=== PATIENT | female | born 1955 | race Caucasian/White ===

== ENCOUNTER → 2016-08-09 | Outpatient (CLI) | payer BC ==
[~2016-08-09] MED LIST: ACET50TAOT PO; HYDR12CA PO; HYDR25TAB PO; NAPR375T2 PO; OXYC-517 PO; ULTR37.52 PO; ZANA4TAB PO
== END ==
LOC: M PAIN 11:00
PROVIDERS: ATTEND Nurse Practitioner Family
DX: Z09 Encounter for follow-up examination after completed treatment for conditions other than malignant neoplasm (principal); G89.29 Other chronic pain; M54.5 Low back pain; M16.12 Unilateral primary osteoarthritis, left hip; M79.1 Myalgia; I10 Essential (primary) hypertension; J30.2 Other seasonal allergic rhinitis; R00.8 Other abnormalities of heart beat; H90.3 Sensorineural hearing loss, bilateral; Z88.8 Allergy status to other drugs, medicaments and biological substances; Z79.1 Long term (current) use of non-steroidal anti-inflammatories (NSAID); Z79.891 Long term (current) use of opiate analgesic; Z79.899 Other long term (current) drug therapy

== ENCOUNTER → 2016-09-10 | Outpatient (REF) | payer BC ==
[2016-09-10 12:51] LABS: ALBUMIN 3.8 GM/DL (3.2-5.2); ALBUMIN/GLOBULIN RATIO 1.36 (1.00-1.93); ALKALINE PHOSPHATASE 55 U/L (45-117); ALT/SGPT 24 U/L (12-78); ANION GAP 8 MEQ/L (8-16); AST/SGOT 15 U/L (15-37); BILIRUBIN,TOTAL 0.3 MG/DL (0.2-1.0); BLOOD UREA NITROGEN 19 MG/DL (7-18); CALCIUM LEVEL 8.8 MG/DL (8.8-10.2); CARBON DIOXIDE LEVEL 29 MEQ/L (21-32); CHLORIDE LEVEL 105 MEQ/L (98-107); CHOLESTEROL LEVEL 244 MG/DL (<200); CREATININE FOR GFR 0.71 MG/DL (0.55-1.02); GLOMERULAR FILTRATION RATE > 60.0 (>45); GLUCOSE, FASTING 88 MG/DL (80-110); POTASSIUM SERUM 4.1 MEQ/L (3.5-5.1); SODIUM LEVEL 142 MEQ/L (136-145); TOTAL PROTEIN 6.6 GM/DL (6.4-8.2); TRIGLYCERIDES LEVEL 112 MG/DL (<150)
[2016-09-10 12:56] LABS: BASO % 0.7 % (0.0-1.0); EOS # 0.2 K/mm3 (0.0-0.50); EOS % 5.4 % (0.0-3.0); LARGE UNSTAINED CELL # 0.1 K/mm3 (0.0-0.4); LARGE UNSTAINED CELL % 2.1 % (0.0-4.0); LYMPH # 1.4 K/mm3 (1.5-4.5); LYMPH % 28.2 % (24.0-44.0); MEAN CORPUSCULAR HEMOGLOBIN 30.4 pg (27.0-33.0); MEAN CORPUSCULAR HGB CONC 33.7 g/dl (32.0-36.5); MEAN CORPUSCULAR VOLUME 90.3 fl (80.0-96.0); MONO # 0.4 K/mm3 (0.0-0.8); MONO % 7.8 % (0.0-5.0); NEUTROPHILS # 2.6 K/mm3 (1.8-7.7); NEUTROPHILS % 55.9 % (36.0-66.0); PLATELET COUNT, AUTOMATED 271 k/mm3 (150-450); RED CELL DISTRIBUTION WIDTH 12.4 % (11.5-14.5); WHITE BLOOD COUNT 4.7 K/mm3 (4.0-10.0)
== END ==
LOC: M LABDRAW1 12:05
PROVIDERS: ATTEND Nurse Practitioner Family
DX: I10 Essential (primary) hypertension (principal); E78.4 Other hyperlipidemia

== ENCOUNTER → 2016-09-19 | Outpatient (CLI) | payer BC ==
--- NOTE | 2016-09-25 00:51 | ECWPNPC ---
PATIENT NAME: SHITAL HA : 1955 GENDER: FEMALE VISIT DATE: 09/19/2016 DISCHARGE DATE: 09/19/16 1125 VISIT LOCKED DATE TIME: PHYSICIAN: SHANNON CORBETT RESOURCE: SHANNON CORBETT REASON FOR APPOINTMENT 1. HIP HISTORY OF PRESENT ILLNESS HISTORY OF PRESENT ILLNESS: HAD LEFT TROCHANTERIC BURSAL INJECTION 05-02-16.HAD LEFT LUMBAR THERAPEUTIC FACET BLOCK ON 05-01-16 WITHOUT IMPROVEMENTTHIS DID NOT HELP. SAW [facility] REGARDING LEFT HIP AND THEY FEEL THAT IS RELATED TO LABRAL ISSUES. CURRENTLY USING IBUPROFEN 600MG QID THAT IS HELPFUL.RATING PAIN VAS 4-6/10.HAS TRIALED MANY DIFFERENT PAIN MEDICATIONS THAT EITHER WERENT EFFECTIVE OR CAUSED SIDE EFFECTS.SHE IS CURRENTLY ATTENDING PT AND OVERALL FEELS SHE IS DOING BETTER. PAIN THE PATIENT DESCRIBES THE PAIN... THE PATIENT DESCRIBES THE PAIN... THE PATIENT DESCRIBES THE PAIN... FALL RISK SCREENING: SCREENING :NO FALLS IN THE PAST YEAR CURRENT MEDICATIONS TAKING MAG-200 200 MG TABLET 1TAB ORALLY TWICE DAILY TAKING LISINOPRIL 10 MG TABLET 1 TABLET ORALLY ONCE A DAY TAKING IBUPROFEN 600 MG TABLET 1 TABLET ORALLY FOUR TIMES DAILY, NOTES: TAKING AROUND THE CLOCK TAKING PERCOCET 5-325 MG TABLET 1 TABLET NEEDED ORALLY EVERY 6 HRS PRN MDD4 TAKING SOMA 350 MG TABLET 1 TABLET NEEDED ORALLY ONE DAILY AT BEDTIME MDD1 TAKING VITAMIN D3 5000 UNIT TABLET ORALLY TAKING TYLENOL 8 HOUR 650 MG TABLET EXTENDED RELEASE 2 TABLETS NEEDED ORALLY EVERY 8 HRS NOT-TAKING TRAMADOL HCL 50 MG TABLET 1TAB Q 8 HRS PRN FOR PAIN ORALLY MDD=2, NOTES: DOESN'T WORK NOT-TAKING OXYCODONE HCL 5 MG TABLET 1 TABLET ORALLY EVERY 6 HRS PRN FOR PAIN MDD2 NOT-TAKING HYDROCODONE-ACETAMINOPHEN 5-325 MG TABLET 1 TABLET NEEDED ORALLY EVERY 6 HRS PRN FOR PAIN MDD2 NOT-TAKING PREDNISONE 1 TAB ORAL 60MG DAILY X 5 DAYS NOT-TAKING LIDODERM 5 % PATCH 1 PATCH TO INTACT SKIN REMOVE AFTER 12 HOURS EXTERNALLY ONCE A DAY NOT-TAKING KETOROLAC TROMETHAMINE 10 MG TABLET 1 TABLET NEEDED ORALLY EVERY 6 HRS NOT-TAKING IBUPROFEN 800 MG TABLET 1 TABLET ORALLY WITH FOOD TWICE DAILY PRN FOR PAIN MDD2 NOT-TAKING TYLENOL 325 MG TABLET 2 TABLETS NEEDED ORALLY EVERY 6 HRS NOT-TAKING ALEVE 220 MG TABLET 1 TABLET NEEDED ORALLY EVERY 12 HRS NOT-TAKING [id number] COMPLEX - TABLET ORALLY DISCONTINUED GABAPENTIN 600 MG TABLET 1 TABLET ORALLY BEFORE BEDTIME MEDICATION LIST REVIEWED AND RECONCILED WITH THE PATIENT PAST MEDICAL HISTORY HTN 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 NEW PATIENT PAIN DIARY TODAY'S VISITNOTES FROM 0-10, WHAT LEVEL IS YOUR PAIN TODAY?0 PAIN CLINIC PFS, CLERGY, PUBLIC HEALTH REFERRALS PFS REFERRAL NEEDED?NO CLERGY REFERRAL NEEDED?NO PUBLIC HEALTH REFERRAL NEEDED?NO WAS THE PROVIDER NOTIFIED OF ANY PERTINENT INFO?NO PFS REFERRAL NEEDED?NO CLERGY REFERRAL NEEDED?NO PUBLIC HEALTH REFERRAL NEEDED?NO WAS THE PROVIDER NOTIFIED OF ANY PERTINENT INFO?NO REVIEW OF SYSTEMS CONSTITUTIONAL: ANY CHANGE IN YOUR MEDICAL CONDITION? NO . CHILLS NO . FEVER NO . INFECTION: DO YOU HAVE NEW INFECTIONS? NO . DO YOU HAVE HISTORY OF MRSA? NO . MUSCULOSKELETAL: ANY NEW PATTERNS OF PAIN OR NUMBNESS? NO . GASTROENTEROLOGY: ANY NEW CHANGE IN BOWEL CONTROL? NO . GENITOURINARY: ANY NEW CHANGE IN BLADDER CONTROL? NO . IS THERE A CHANCE YOU COULD BE ? NO . HEMATOLOGY/LYMPH: DO YOU TAKE ANY BLOOD THINNERS? (FOR EXAMPLE- COUMADIN, PLAVIX, AGGRENOX, PLATEL, PRADAXA, OR XARELTO) NO . WHEN WAS YOUR LAST DOSE? DATE: TIME: . NEUROLOGY: HAVE YOU FALLEN IN THE PAST 6 MONTHS? YES FELL ON WET FLOOR. ED EVAL-NO INJURY. FELL IN PARKING LOT-NO INJURY . ANY NEW EXTREMITY NUMBNESS OR WEAKNESS? NO . CARDIOLOGY: DO YOU HAVE A PACEMAKER OR DEFIBRILLATOR? NO . RESPIRATORY: HAVE YOU BEEN SICK IN THE PAST WEEK? NO . FEVER NO . FLU LIKE SYMPTOMS? NO . COUGH NO . INTEGUMENTARY: DO YOU HAVE ANY RASHES OR OPEN SORES? NO . ALLERGIC/IMMUNO: ARE YOU ALLERGIC TO SHELLFISH OR IV DYE? NO . ANY NEW ALLERGIES? NO . PSYCHIATRIC: DO YOU HAVE THOUGHTS OF HURTING YOURSELF OR SOMEONE ELSE? NO . ARE YOU ABUSED, NEGLECTED, OR IN AN UNSAFE ENVIRONMENT? NO . ENDOCRINOLOGY: ARE YOU DIABETIC? NO . OTHER: DO YOU NEED ANY PRESCRIPTIONS? YES IBUPROFEN, PERCOCET, SOMA . IF YES, PLEASE LIST: ____ . ANY NEW PROBLEMS WITH YOUR MEDICATIONS? NO . WHEN DID YOU LAST EAT? ____ . WHEN DID YOU LAST DRINK? ____ . WHAT DID YOU LAST DRINK? ____ . NAME OF PERSON DRIVING YOU HOME? ____ . DO YOU HAVE ANY OTHER QUESTIONS OR CONCERNS NO . REVIEWED BY: PROVIDER: SHANNON LOVETT . VITAL SIGNS WT 190 LBS, HT 65 IN, BMI 31.61 INDEX, BP 159/87 MM HG, HR 76 /MIN, RR 16 /MIN, TEMP 96.4 F, OXYGEN SAT % 98, NA INITIALS TL 1039, REVIEWED BY: MLF. EXAMINATION LUMBAR SPINE/LOWER BACK: INSPECTION:NORMAL CURVATURE OF SPINE. PALPATION:VERTEBRAL SPINE TENDERNESS, PARASPINAL TENDERNESS, MILD. MOTOR SYSTEM:5/5 BLE. SENSORY EXAM:NORMAL. 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 MYOFASCIAL PAIN - M79.1 SACROILIAC JOINT PAIN - M53.3 TREATMENT LOW BACK PAIN REFILL IBUPROFEN TABLET, 600 MG, 1 TABLET, ORALLY, FOUR TIMES DAILY, 30 DAY(S), 120, REFILLS 2, NOTES: TAKING AROUND THE CLOCK REFILL PERCOCET TABLET, 5-325 MG, 1 TABLET NEEDED, ORALLY, EVERY 6 HRS PRN MDD4, 10 DAY(S), 40, REFILLS 0 REFILL SOMA TABLET, 350 MG, 1 TABLET NEEDED, ORALLY, ONE DAILY AT BEDTIME MDD1, 30 DAY(S), 30, REFILLS 2 PROCEDURE CODES FA211 ESTABILISHED PATIENT [facility] CHARGE DISPOSITION & COMMUNICATION FOLLOW UP 6 WEEKS ELECTRONICALLY SIGNED BY BONY GUILLEN ON 09/24/2016 AT 03:42 PM EDT DISCLAIMER : THIS IS A VISIT SUMMARY EXTRACTED FROM THE [employer] CHART. IT IS NOT A COPY OF THE [employer] PROGRESS NOTE. [facility]
== END ==
LOC: M PAIN 10:20
PROVIDERS: ATTEND Nurse Practitioner Family
DX: Z09 Encounter for follow-up examination after completed treatment for conditions other than malignant neoplasm (principal); G89.29 Other chronic pain; M54.5 Low back pain; M16.12 Unilateral primary osteoarthritis, left hip; M79.1 Myalgia; M53.3 Sacrococcygeal disorders, not elsewhere classified; I10 Essential (primary) hypertension; R00.8 Other abnormalities of heart beat; Z79.1 Long term (current) use of non-steroidal anti-inflammatories (NSAID); Z79.891 Long term (current) use of opiate analgesic; Z79.899 Other long term (current) drug therapy; Z88.8 Allergy status to other drugs, medicaments and biological substances; Z88.1 Allergy status to other antibiotic agents; Z97.4 Presence of external hearing-aid

== ENCOUNTER 2016-10-09 15:14 | Outpatient (RCR) | payer BC | END 2016-10-11 | LOC: M PT 15:14 | PROVIDERS: ATTEND Nurse Practitioner Family | DX: Z51.89 Encounter for other specified aftercare (principal); M25.552 Pain in left hip; M16.9 Osteoarthritis of hip, unspecified; M76.02 Gluteal tendinitis, left hip ==

== ENCOUNTER → 2016-10-31 | Outpatient (CLI) | payer BC ==
--- NOTE | 2016-11-12 01:58 | ECWPNPC ---
PATIENT NAME: SHITAL HA : 1955 GENDER: FEMALE VISIT DATE: 10/31/2016 DISCHARGE DATE: 10/31/16 1620 VISIT LOCKED DATE TIME: PHYSICIAN: SHANNON CORBETT RESOURCE: SHANNON CORBETT REASON FOR APPOINTMENT 1. FOLLOWUP HISTORY OF PRESENT ILLNESS HISTORY OF PRESENT ILLNESS: HER FOR F/U OF LEFT LOW BACK/LEFT LEG PAIN.PATIENT IS EXPERIENCING SEVERE LEFT LOW BACK PAIN/LEFT LEG PAIN ECSPECIALLY AT NIGHT.HAD LEFT TROCHANTERIC BURSAL INJECTION 05-02-16.HAD LEFT LUMBAR THERAPEUTIC FACET BLOCK ON 04-01-16 WITHOUT IMPROVEMENT.HAD LESI AND LESI 02/2016.THIS DID NOT HELP. SAW [facility] REGARDING LEFT HIP AND THEY FEEL THAT IS RELATED TO LABRAL ISSUES. CURRENTLY USING IBUPROFEN 600MG QID THAT IS HELPFUL.RATING PAIN VAS 4-6/10.HAS TRIALED MANY DIFFERENT PAIN MEDICATIONS THAT EITHER WERE NOT EFFECTIVE OR CAUSED SIDE EFFECTS.HAS ATTENDED PT AND OVERALL THAT HASNT HELPED MUCH.REVIEWED MRI L/S SPINE 08-30-16 .DISCUSSED TREATMENT OPTIONS. PAIN THE PATIENT DESCRIBES THE PAIN... THE PATIENT DESCRIBES THE PAIN... THE PATIENT DESCRIBES THE PAIN... THE PATIENT DESCRIBES THE PAIN... FALL RISK SCREENING: SCREENING :NO FALLS IN THE PAST YEAR CURRENT MEDICATIONS TAKING MAG-200 200 MG TABLET 1TAB ORALLY TWICE DAILY TAKING LISINOPRIL 10 MG TABLET 1 TABLET ORALLY ONCE A DAY TAKING VITAMIN D3 5000 UNIT TABLET ORALLY DAILY TAKING TYLENOL 8 HOUR 650 MG TABLET EXTENDED RELEASE 2 TABLETS NEEDED ORALLY EVERY 8 HRS TAKING IBUPROFEN 400 MG TABLET 1 TABLET ORALLY FOUR TIMES DAILY, NOTES: TAKING AROUND THE CLOCK TAKING PERCOCET 5-325 MG TABLET 1 TABLET NEEDED ORALLY EVERY 6 HRS PRN MDD4 TAKING MELATONIN 5 MG TABLET 1 TABLET AT BEDTIME NEEDED WITH FOOD ORALLY ONCE A DAY TAKING LIDODERM 5 % PATCH 1 PATCH TO SKIN REMOVE AFTER 12 HOURS EXTERNALLY ONCE A DAY PRN NOT-TAKING SOMA 350 MG TABLET 1 TABLET NEEDED ORALLY ONE DAILY AT BEDTIME MDD1 NOT-TAKING TRAMADOL HCL 50 MG TABLET 1TAB Q 8 HRS PRN FOR PAIN ORALLY MDD=2, NOTES: DOESN'T WORK NOT-TAKING OXYCODONE HCL 5 MG TABLET 1 TABLET ORALLY EVERY 6 HRS PRN FOR PAIN MDD2 NOT-TAKING HYDROCODONE-ACETAMINOPHEN 5-325 MG TABLET 1 TABLET NEEDED ORALLY EVERY 6 HRS PRN FOR PAIN MDD2 NOT-TAKING PREDNISONE 1 TAB ORAL 60MG DAILY X 5 DAYS NOT-TAKING LIDODERM 5 % PATCH 1 PATCH TO INTACT SKIN REMOVE AFTER 12 HOURS EXTERNALLY ONCE A DAY NOT-TAKING KETOROLAC TROMETHAMINE 10 MG TABLET 1 TABLET NEEDED ORALLY EVERY 6 HRS NOT-TAKING IBUPROFEN 800 MG TABLET 1 TABLET ORALLY WITH FOOD TWICE DAILY PRN FOR PAIN MDD2 NOT-TAKING TYLENOL 325 MG TABLET 2 TABLETS NEEDED ORALLY EVERY 6 HRS NOT-TAKING ALEVE 220 MG TABLET 1 TABLET NEEDED ORALLY EVERY 12 HRS NOT-TAKING [id number] COMPLEX - TABLET ORALLY MEDICATION LIST REVIEWED AND RECONCILED WITH THE PATIENT PAST MEDICAL HISTORY HTN 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 REVIEW OF SYSTEMS CONSTITUTIONAL: ANY CHANGE IN YOUR MEDICAL CONDITION? NO . CHILLS NO . FEVER NO . INFECTION: DO YOU HAVE NEW INFECTIONS? NO . DO YOU HAVE HISTORY OF MRSA? NO . MUSCULOSKELETAL: ANY NEW PATTERNS OF PAIN OR NUMBNESS? NO . GASTROENTEROLOGY: ANY NEW CHANGE IN BOWEL CONTROL? NO . GENITOURINARY: ANY NEW CHANGE IN BLADDER CONTROL? YES, URGENCY . IS THERE A CHANCE YOU COULD BE ? NO . HEMATOLOGY/LYMPH: DO YOU TAKE ANY BLOOD THINNERS? (FOR EXAMPLE- COUMADIN, PLAVIX, AGGRENOX, PLATEL, PRADAXA, OR XARELTO) NO . WHEN WAS YOUR LAST DOSE? DATE: TIME: . NEUROLOGY: HAVE YOU FALLEN IN THE PAST 6 MONTHS? NO . ANY NEW EXTREMITY NUMBNESS OR WEAKNESS? NO . CARDIOLOGY: DO YOU HAVE A PACEMAKER OR DEFIBRILLATOR? NO . RESPIRATORY: HAVE YOU BEEN SICK IN THE PAST WEEK? NO . FEVER NO . FLU LIKE SYMPTOMS? NO . COUGH NO . INTEGUMENTARY: DO YOU HAVE ANY RASHES OR OPEN SORES? NO . ALLERGIC/IMMUNO: ARE YOU ALLERGIC TO SHELLFISH OR IV DYE? NO . ANY NEW ALLERGIES? NO . PSYCHIATRIC: DO YOU HAVE THOUGHTS OF HURTING YOURSELF OR SOMEONE ELSE? NO . ARE YOU ABUSED, NEGLECTED, OR IN AN UNSAFE ENVIRONMENT? NO . ENDOCRINOLOGY: ARE YOU DIABETIC? NO . OTHER: DO YOU NEED ANY PRESCRIPTIONS? YES . IF YES, PLEASE LIST: PERCOCET . ANY NEW PROBLEMS WITH YOUR MEDICATIONS? NO . WHEN DID YOU LAST EAT? ____ . WHEN DID YOU LAST DRINK? ____ . WHAT DID YOU LAST DRINK? ____ . NAME OF PERSON DRIVING YOU HOME? ____ . DO YOU HAVE ANY OTHER QUESTIONS OR CONCERNS WOULD LIKE TO DISCUSS OPTIONS TO MANAGE PAIN. JUST ABOUT TO FINISH PT--HASN'T HELPED MUCH . REVIEWED BY: PROVIDER: SHANNON LOVETT . VITAL SIGNS WT 190 LBS, HT 65 IN, BMI 31.61 INDEX, BP 146/81 MM HG, HR 86 /MIN, RR 16 /MIN, TEMP 99.1 F, OXYGEN SAT % 96, NA INITIALS AW 1505, REVIEWED BY: AD. EXAMINATION LUMBAR SPINE/LOWER BACK: INSPECTION:NORMAL CURVATURE OF SPINE. PALPATION:VERTEBRAL SPINE TENDERNESS, PARASPINAL TENDERNESS, MILD. MOTOR SYSTEM:5/5 BLE. SENSORY EXAM:NORMAL. ASSESSMENTS LOW BACK PAIN - M54.5 (PRIMARY) LUMBOSACRAL SPONDYLOLYSIS - M43.07 TREATMENT LOW BACK PAIN REFILL PERCOCET TABLET, 5-325 MG, 1 TABLET NEEDED, ORALLY, EVERY 6 HRS PRN MDD4, 10 DAY(S), 40, REFILLS 0 STOP SOMA TABLET, 350 MG, 1 TABLET NEEDED, ORALLY, ONE DAILY AT BEDTIME MDD1 INJECTION FACET JOINT/NERVE LUMBAR YASHSHANNON 10/31/2016 4:06:03 PM > LEFT L3/4-L4/5 DIAGNOSTIC FACET BLOCK NOTES: FACET JOINT INJECTION MATERIAL WAS PRINTED,FACET JOINT INJECTION: YOUR EXPERIENCE MATERIAL WAS PRINTED. PREVENTIVE MEDICINE PAIN CLINIC TEACHING: PROCEDURE TEACHING PRINTED INFROMATION ON FACET BLOCK GIVEN TO AND REVIEWED WITH PATIENT ALONG WITH PRE-PROCEDURE INSTRUCTIONS AND SHE VERBALIZED UNDERSTANDING.. DISPOSITION & COMMUNICATION FOLLOW UP 2WK POST (REASON: LEFT L3/4-L4/5 DIAGNOSTIC FACET BLOCK) ELECTRONICALLY SIGNED BY BONY GUILLEN ON 11/11/2016 AT 12:18 PM EDT DISCLAIMER : THIS IS A VISIT SUMMARY EXTRACTED FROM THE [employer] CHART. IT IS NOT A COPY OF THE [employer] PROGRESS NOTE. MAGI
== END ==
LOC: M PAIN 15:00
PROVIDERS: ATTEND Nurse Practitioner Family
DX: M54.5 Low back pain (principal); M43.07 Spondylolysis, lumbosacral region; I10 Essential (primary) hypertension; J30.2 Other seasonal allergic rhinitis; M19.90 Unspecified osteoarthritis, unspecified site; H91.93 Unspecified hearing loss, bilateral; Z79.891 Long term (current) use of opiate analgesic; Z79.899 Other long term (current) drug therapy; Z88.1 Allergy status to other antibiotic agents; Z88.8 Allergy status to other drugs, medicaments and biological substances

== ENCOUNTER 2016-11-07 15:10 | Outpatient (RCR) | payer BC | END 2016-11-10 | disposition home or self-care (01) | LOC: M PT 15:10 | PROVIDERS: ATTEND Nurse Practitioner Family | DX: Z51.89 Encounter for other specified aftercare (principal); M25.552 Pain in left hip; M16.9 Osteoarthritis of hip, unspecified; M76.02 Gluteal tendinitis, left hip ==

== ENCOUNTER → 2016-11-21 | Outpatient (CLI) | payer BC ==
[~2016-11-21] MED LIST changes: +BUPIVACAINE HCL 0.25% 30 ML VIAL As Ordered ONE; +ISOVUE-M 300 61% 15ML VIAL (Q9967) As Ordered ONE; +LIDOCAINE 1% SDV INJ 30 ML VIAL As Ordered ONE
--- NOTE | 2016-11-21 14:55 | REP ---
PARTIAL LUMBAR SPINE SERIES: Two views. HISTORY: Lumbar spine facet block for pain. 28 seconds of fluoroscopy time is reported. FINDINGS: A sequence of two fluoroscopically obtained last image hold spot radiographs of the lumbar spine document various needle positions and contrast injections associated with lumbar spine injections. Signed by Aden Peck MD 11/21/2016 03:58 P
--- NOTE | 2016-12-04 02:33 | ECWPNPC ---
PATIENT NAME: SHITAL HA : 1955 GENDER: FEMALE VISIT DATE: 11/21/2016 DISCHARGE DATE: 11/21/16 110 VISIT LOCKED DATE TIME: PHYSICIAN: TASHA ANGLIN RESOURCE: TASHA ANGLIN REASON FOR APPOINTMENT 1. LUMBAR, DIAG FACET HISTORY OF PRESENT ILLNESS HISTORY OF PRESENT ILLNESS: PAIN THE PATIENT DESCRIBES THE PAIN... FALL RISK SCREENING: SCREENING :NO FALLS IN THE PAST YEAR CURRENT MEDICATIONS TAKING MAG-200 200 MG TABLET 1TAB ORALLY TWICE DAILY, NOTES: 11-20-16 0800 TAKING LISINOPRIL 10 MG TABLET 1 TABLET ORALLY ONCE A DAY, NOTES: 11-21-16 0600 TAKING VITAMIN D3 5000 UNIT TABLET ORALLY DAILY, NOTES: 11-20-16 0800 TAKING TYLENOL 8 HOUR 650 MG TABLET EXTENDED RELEASE 2 TABLETS NEEDED ORALLY EVERY 8 HRS, NOTES: 11-20-16 1600 TAKING IBUPROFEN 400 MG TABLET 1 TABLET ORALLY FOUR TIMES DAILY, NOTES: 11-20-16 2100 TAKING MELATONIN 5 MG TABLET 1 TABLET AT BEDTIME NEEDED WITH FOOD ORALLY ONCE A DAY, NOTES: 11-19-16 TAKING LIDODERM 5 % PATCH 1 PATCH TO SKIN REMOVE AFTER 12 HOURS EXTERNALLY ONCE A DAY PRN, NOTES: NONE TAKING PERCOCET 5-325 MG TABLET 1 TABLET NEEDED ORALLY EVERY 6 HRS PRN MDD4, NOTES: WEEK AGO NOT-TAKING LIDODERM 5 % PATCH 1 PATCH TO INTACT SKIN REMOVE AFTER 12 HOURS EXTERNALLY ONCE A DAY NOT-TAKING KETOROLAC TROMETHAMINE 10 MG TABLET 1 TABLET NEEDED ORALLY EVERY 6 HRS NOT-TAKING IBUPROFEN 800 MG TABLET 1 TABLET ORALLY WITH FOOD TWICE DAILY PRN FOR PAIN MDD2 NOT-TAKING TYLENOL 325 MG TABLET 2 TABLETS NEEDED ORALLY EVERY 6 HRS NOT-TAKING ALEVE 220 MG TABLET 1 TABLET NEEDED ORALLY EVERY 12 HRS NOT-TAKING [id number] COMPLEX - TABLET ORALLY DISCONTINUED TRAMADOL HCL 50 MG TABLET 1TAB Q 8 HRS PRN FOR PAIN ORALLY MDD=2, NOTES: DOESN'T WORK DISCONTINUED OXYCODONE HCL 5 MG TABLET 1 TABLET ORALLY EVERY 6 HRS PRN FOR PAIN MDD2 DISCONTINUED HYDROCODONE-ACETAMINOPHEN 5-325 MG TABLET 1 TABLET NEEDED ORALLY EVERY 6 HRS PRN FOR PAIN MDD2 DISCONTINUED PREDNISONE 1 TAB ORAL 60MG DAILY X 5 DAYS MEDICATION LIST REVIEWED AND RECONCILED WITH THE PATIENT PAST MEDICAL HISTORY HTN 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 NO . CHILLS NO . FEVER NO . INFECTION: DO YOU HAVE NEW INFECTIONS? NO . DO YOU HAVE HISTORY OF MRSA? NO . MUSCULOSKELETAL: ANY NEW PATTERNS OF PAIN OR NUMBNESS? YES, LEFT LEG VERY WEAK . GASTROENTEROLOGY: ANY NEW CHANGE IN BOWEL CONTROL? NO . GENITOURINARY: ANY NEW CHANGE IN BLADDER CONTROL? NO . IS THERE A CHANCE YOU COULD BE ? NO . HEMATOLOGY/LYMPH: DO YOU TAKE ANY BLOOD THINNERS? (FOR EXAMPLE- COUMADIN, PLAVIX, AGGRENOX, PLATEL, PRADAXA, OR XARELTO) NO . WHEN WAS YOUR LAST DOSE? DATE: TIME: . NEUROLOGY: HAVE YOU FALLEN IN THE PAST 6 MONTHS? NO . ANY NEW EXTREMITY NUMBNESS OR WEAKNESS? NO . CARDIOLOGY: DO YOU HAVE A PACEMAKER OR DEFIBRILLATOR? NO . RESPIRATORY: HAVE YOU BEEN SICK IN THE PAST WEEK? NO . FEVER NO . FLU LIKE SYMPTOMS? NO . COUGH NO . INTEGUMENTARY: DO YOU HAVE ANY RASHES OR OPEN SORES? NO . ALLERGIC/IMMUNO: ARE YOU ALLERGIC TO SHELLFISH OR IV DYE? NO . ANY NEW ALLERGIES? NO . PSYCHIATRIC: DO YOU HAVE THOUGHTS OF HURTING YOURSELF OR SOMEONE ELSE? NO . ARE YOU ABUSED, NEGLECTED, OR IN AN UNSAFE ENVIRONMENT? NO . ENDOCRINOLOGY: ARE YOU DIABETIC? NO . OTHER: DO YOU NEED ANY PRESCRIPTIONS? NO . IF YES, PLEASE LIST: ____ . ANY NEW PROBLEMS WITH YOUR MEDICATIONS? NO . WHEN DID YOU LAST EAT? 11-20-16 9PM . WHEN DID YOU LAST DRINK? 11-21-16 0700 . WHAT DID YOU LAST DRINK? WATER . NAME OF PERSON DRIVING YOU HOME? OLIVA . DO YOU HAVE ANY OTHER QUESTIONS OR CONCERNS YES, NEEDS TO KNOW WHAT THE PLAN IS. . REVIEWED BY: PROVIDER: . VITAL SIGNS WT 185 LBS, HT 65 IN, BMI 30.78 INDEX, BP 174/89 MM HG, HR 91 /MIN, RR 16 /MIN, TEMP 98.4 F, OXYGEN SAT % 95%, NA INITIALS AW 0903, REVIEWED BY: CM. ASSESSMENTS SPONDYLOSIS WITHOUT MYELOPATHY OR RADICULOPATHY, LUMBOSACRAL REGION - M47.817 (PRIMARY) PROCEDURES PN LUMBAR FACET BLOCK DIAGNOSTIC PRE PROCEDURE DIAGNOSIS LUMBAR SPONDYLOSIS, LUMBOSACRAL SPONDYLOSIS POST PROCEDURE DIAGNOSIS LUMBAR SPONDYLOSIS, LUMBOSACRAL SPONDYLOSIS PROCEDURE LEFT L5-S1 FACET BLOCK DIAGNOSTIC NUMBER #[address] TASHA ANGLIN [employer] ARCHITECT NONE ANESTHESIA LOCAL PRE PROCEDURE NOTE THE PATIENT WITH HISTORY OF CHRONIC LOW BACK PAIN. I EVALUATED THE PATIENT AND REVIEWED THE CHART. I WENT OVER THE RISKS, ALTERNATIVES, AND BENEFITS ASSOCIATED WITH THIS PROCEDURE. THE PATIENT WOULD LIKE TO PROCEED AND GAVE CONSENT TO PERFORM THE PROCEDURE. AGREED WITH THE PATIENT WE ARE DOING THIS PROCEDURE TO DETERMINE IF THE PATIENT IS A CANDIDATE FOR A RADIOFREQUENCY ABLATION OF THE FACETS JOINTS. THE PATIENT DENIES UNEXPLAINABLE WEIGHT LOSS, FEVER, CHILLS, OR NEW CHANGES IN URINARY OR BOWEL CONTROL DESCRIPTION OF PROCEDURE THE PATIENT WAS BROUGHT TO THE PROCEDURE ROOM AND PLACED IN THE PRONE POSITION. THE LUMBOSACRAL AREA WAS CLEANED WITH CHLORAPREP SOLUTION AND DRAPED ASEPTICALLY. THE PROCEDURE WAS DONE UNDER STERILE CONDITIONS. I CHECKED LATERALITY AND THE LEVEL WHERE THE PROCEDURE WAS GOING TO BE PERFORMED WITH THE PATIENT AND THE SUPPORTING STAFF AT THE MOMENT OF THE TIME OUT IN THE PROCEDURE ROOM. UNDER FLUOROSCOPIC GUIDANCE, TARGETS WERE SELECTED AT THE INTERSECTION OF THE LEFT TRANSVERSE PROCESS OF L5 AND ALA OF S1 WITH ITS RESPECTIVE SUPERIOR ARTICULAR PROCESS. LIDOCAINE WAS USED TO NUMB THE SKIN AND THE SUBCUTANEOUS TISSUE BELOW IT. SPINAL NEEDLE, 22-GAUGE WAS ADVANCED UNDER FLUOROSCOPIC GUIDANCE AND FOLLOWING PATIENT FEEDBACK UNTIL THE TARGETS WERE REACHED. POSITION OF THE NEEDLES WAS VERIFIED WITH AP AND LATERAL VIEWS. AFTER PROPER POSITION OF THE NEEDLES WAS ACHIEVED, ISOVUE-M DYE 30% 0.1 ML WAS INJECTED AT EACH SITE SHOWING ADEQUATE SPREAD OF THE DYE. THEN A SOLUTION OF 0.4 ML OF BUPIVACAINE 0.25% WAS INJECTED AT EACH SITE. THERE WAS NO EVIDENCE OF BLOOD, PARESTHESIA OR CEREBROSPINAL FLUID DURING THE PROCEDURE. THE PATIENT WAS SENT TO THE RECOVERY ROOM. THE PATIENT WAS MOVING THE EXTREMITIES AND DOING WELL. THERE WAS NO COMPLICATION DURING THE PROCEDURE. FLUOROSCOPY TIME WAS 28 SECONDS POST PROCEDURE NOTE THE PATIENT WILL DOCUMENT HIS PAIN LEVEL AND RESPONSE TO THIS PROCEDURE EVERY 30 MINUTES. THE PATIENT WILL BE SEEN IN A FOLLOW UP IN THE NEXT FEW WEEKS. FURTHER DETERMINATION FOR HIS CASE WILL BE DONE AT THE NEXT VISIT. INSTRUCTIONS WERE GIVEN, QUESTIONS WERE ANSWERED, AND THE PATIENT EXPRESSED UNDERSTANDING AND AGREED WITH THE PLAN. I, MUKUL CAMPOS, DOCUMENTED THE ABOVE INFORMATION ACTING A SCRIBE FOR DR. ANGLIN. I HAVE REVIEWED THE ABOVE DOCUMENT, WRITTEN BY MUKUL CAMPOS SCRIBE AND I VERIFY THAT IT IS [facility] [place] FACET BLOCK (PAIN)[id number] PROCEDURE CODES 57569 INJ PARAVERT F JNT L/S 1 LEV 6045F RADXPS IN END [id number] PXD DISPOSITION & COMMUNICATION FOLLOW UP 3 WEEKS ELECTRONICALLY SIGNED BY TASHA ANGLIN MD ON 12/03/2016 AT 06:00 PM EDT DISCLAIMER : THIS IS A VISIT SUMMARY EXTRACTED FROM THE [employer] CHART. IT IS NOT A COPY OF THE [employer] PROGRESS NOTE. MAGI
== END | disposition home or self-care (01) ==
LOC: M PAIN 09:00
PROVIDERS: ATTEND Anesthesiology
DX: G89.29 Other chronic pain (principal); M47.817 Spondylosis without myelopathy or radiculopathy, lumbosacral region; I10 Essential (primary) hypertension; J30.9 Allergic rhinitis, unspecified; M19.90 Unspecified osteoarthritis, unspecified site; Z97.4 Presence of external hearing-aid; R00.8 Other abnormalities of heart beat; Z79.899 Other long term (current) drug therapy; Z88.1 Allergy status to other antibiotic agents; Z88.8 Allergy status to other drugs, medicaments and biological substances
CPT/HCPCS: 64493; Q9967

== ENCOUNTER → 2016-12-04 | Outpatient (CLI) | payer BC ==
[~2016-12-04] MED LIST changes: -BUPIVACAINE HCL 0.25% 30 ML VIAL As Ordered ONE; -ISOVUE-M 300 61% 15ML VIAL (Q9967) As Ordered ONE; -LIDOCAINE 1% SDV INJ 30 ML VIAL As Ordered ONE
--- NOTE | 2016-12-28 01:14 | ECWPNPC ---
PATIENT NAME: SHITAL HA : 1955 GENDER: FEMALE VISIT DATE: 12/04/2016 DISCHARGE DATE: 12/04/16 1620 VISIT LOCKED DATE TIME: PHYSICIAN: SHANNON CORBETT RESOURCE: SHANNON CORBETT REASON FOR APPOINTMENT 1. POST PROCEDURE HISTORY OF PRESENT ILLNESS HISTORY OF PRESENT ILLNESS: HERE FOR POST PROCEDURE F/U.HAD LEFT L5/S1 DIAGNOSTIC BLOCK ON 11-21-16.HOURLY PAIN DIARY REVIEWED.THIS IS SHOWING >50% REDUCTION IN PAIN FOR 24H POST PROCEDURE.CONTINUES TO BENEFIT SHE FEELS PAIN VAS 4-6/10 OPPOSED TO 8/10.DESCRIBES PAIN CONSTANT ACHING AND SHARP PAIN.PAIN IS RELIEVED SOMEWHAT WITH IBUPROFEN. PAIN THE PATIENT DESCRIBES THE PAIN... FALL RISK SCREENING: SCREENING :NO FALLS IN THE PAST YEAR CURRENT MEDICATIONS TAKING MAG-200 200 MG TABLET 1TAB ORALLY TWICE DAILY, NOTES: 11-20-16 0800 TAKING LISINOPRIL 10 MG TABLET 1 TABLET ORALLY ONCE A DAY, NOTES: 11-21-16 0600 TAKING VITAMIN D3 5000 UNIT TABLET ORALLY DAILY, NOTES: 11-20-16 0800 TAKING TYLENOL 8 HOUR 650 MG TABLET EXTENDED RELEASE 2 TABLETS NEEDED ORALLY EVERY 8 HRS, NOTES: 11-20-16 1600 TAKING IBUPROFEN 400 MG TABLET 1 TABLET ORALLY FOUR TIMES DAILY, NOTES: 11-20-16 2100 TAKING MELATONIN 5 MG TABLET 1 TABLET AT BEDTIME NEEDED WITH FOOD ORALLY ONCE A DAY, NOTES: 11-19-16 TAKING LIDODERM 5 % PATCH 1 PATCH TO SKIN REMOVE AFTER 12 HOURS EXTERNALLY ONCE A DAY PRN, NOTES: NONE TAKING PERCOCET 5-325 MG TABLET 1 TABLET NEEDED ORALLY EVERY 6 HRS PRN MDD4, NOTES: WEEK AGO NOT-TAKING LIDODERM 5 % PATCH 1 PATCH TO INTACT SKIN REMOVE AFTER 12 HOURS EXTERNALLY ONCE A DAY NOT-TAKING KETOROLAC TROMETHAMINE 10 MG TABLET 1 TABLET NEEDED ORALLY EVERY 6 HRS NOT-TAKING IBUPROFEN 800 MG TABLET 1 TABLET ORALLY WITH FOOD TWICE DAILY PRN FOR PAIN MDD2 NOT-TAKING TYLENOL 325 MG TABLET 2 TABLETS NEEDED ORALLY EVERY 6 HRS NOT-TAKING ALEVE 220 MG TABLET 1 TABLET NEEDED ORALLY EVERY 12 HRS NOT-TAKING [id number] COMPLEX - TABLET ORALLY MEDICATION LIST REVIEWED AND RECONCILED WITH THE PATIENT PAST MEDICAL HISTORY HTN 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 NO . CHILLS NO . FEVER NO . INFECTION: DO YOU HAVE NEW INFECTIONS? NO . DO YOU HAVE HISTORY OF MRSA? NO . MUSCULOSKELETAL: ANY NEW PATTERNS OF PAIN OR NUMBNESS? YES, PT STATES LUMBAR FACET DONE 11/21/16. PT STATES SHE HAS BEEN ABLE TO SPACE OUT MOTRIN DOUBLE THE TIME BETWEEN DOSES POST PROCEDURE. . GASTROENTEROLOGY: ANY NEW CHANGE IN BOWEL CONTROL? NO . GENITOURINARY: ANY NEW CHANGE IN BLADDER CONTROL? NO . IS THERE A CHANCE YOU COULD BE ? NO . HEMATOLOGY/LYMPH: DO YOU TAKE ANY BLOOD THINNERS? (FOR EXAMPLE- COUMADIN, PLAVIX, AGGRENOX, PLATEL, PRADAXA, OR XARELTO) NO . WHEN WAS YOUR LAST DOSE? DATE: TIME: . NEUROLOGY: HAVE YOU FALLEN IN THE PAST 6 MONTHS? NO . ANY NEW EXTREMITY NUMBNESS OR WEAKNESS? NO . CARDIOLOGY: DO YOU HAVE A PACEMAKER OR DEFIBRILLATOR? NO . RESPIRATORY: HAVE YOU BEEN SICK IN THE PAST WEEK? NO . FEVER NO . FLU LIKE SYMPTOMS? NO . COUGH NO . INTEGUMENTARY: DO YOU HAVE ANY RASHES OR OPEN SORES? NO . ALLERGIC/IMMUNO: ARE YOU ALLERGIC TO SHELLFISH OR IV DYE? NO . ANY NEW ALLERGIES? NO . PSYCHIATRIC: DO YOU HAVE THOUGHTS OF HURTING YOURSELF OR SOMEONE ELSE? NO . ARE YOU ABUSED, NEGLECTED, OR IN AN UNSAFE ENVIRONMENT? NO . ENDOCRINOLOGY: ARE YOU DIABETIC? NO . OTHER: DO YOU NEED ANY PRESCRIPTIONS? NO . IF YES, PLEASE LIST: ____ . ANY NEW PROBLEMS WITH YOUR MEDICATIONS? NO . WHEN DID YOU LAST EAT? ____ . WHEN DID YOU LAST DRINK? ____ . WHAT DID YOU LAST DRINK? ____ . NAME OF PERSON DRIVING YOU HOME? ____ . DO YOU HAVE ANY OTHER QUESTIONS OR CONCERNS NO . REVIEWED BY: PROVIDER: SHANNON LOVETT . VITAL SIGNS WT 190.0 LBS, HT 65 IN, BMI 31.61 INDEX, BP 178/81 L ARM, REPEAT BP 162/80 R ARM, HR 80 /MIN, RR 16 /MIN, TEMP 98.7 F, OXYGEN SAT % 98%, NA INITIALS TL 1540. EXAMINATION LUMBAR SPINE/LOWER BACK: INSPECTION:NORMAL CURVATURE OF SPINE. PALPATION:VERTEBRAL SPINE TENDERNESS, PARASPINAL TENDERNESS, MILD. MOTOR SYSTEM:5/5 BLE. SENSORY EXAM:NORMAL. ASSESSMENTS LOW BACK PAIN - M54.5 (PRIMARY) LUMBOSACRAL SPONDYLOLYSIS - M43.07 TREATMENT LOW BACK PAIN NOTES: I AM GOING TO REQUEST A DIAGNOSTIC LUMBAR FACET BLOCK. LEFT L5/S1. PROCEDURE CODES FA211 ESTABILISHED PATIENT [facility] CHARGE DISPOSITION & COMMUNICATION FOLLOW UP 2WK POST (REASON: I AM GOING TO REQUEST A DIAGNOSTIC LUMBAR FACET BLOCK. LEFT L5/S1) ELECTRONICALLY SIGNED BY BONY GUILLEN ON 12/27/2016 AT 07:40 PM EDT DISCLAIMER : THIS IS A VISIT SUMMARY EXTRACTED FROM THE [email or web address] CHART. IT IS NOT A COPY OF THE [employer] PROGRESS NOTE. MAGI
== END ==
LOC: M PAIN 15:20
PROVIDERS: ATTEND Nurse Practitioner Family
DX: G89.29 Other chronic pain (principal); M54.5 Low back pain; M43.07 Spondylolysis, lumbosacral region; I10 Essential (primary) hypertension; J30.2 Other seasonal allergic rhinitis; H91.93 Unspecified hearing loss, bilateral; M19.90 Unspecified osteoarthritis, unspecified site; R00.8 Other abnormalities of heart beat; Z88.1 Allergy status to other antibiotic agents; Z88.8 Allergy status to other drugs, medicaments and biological substances; Z79.891 Long term (current) use of opiate analgesic; Z79.899 Other long term (current) drug therapy; Z79.1 Long term (current) use of non-steroidal anti-inflammatories (NSAID)

== ENCOUNTER → 2016-12-12 | Outpatient (CLI) | payer BC ==
[~2016-12-12] MED LIST changes: +BUPIVACAINE HCL 0.25% 30 ML VIAL As Ordered ONE; +ISOVUE-M 300 61% 15ML VIAL (Q9967) As Ordered ONE; +LIDOCAINE 1% SDV INJ 30 ML VIAL As Ordered ONE
--- NOTE | 2016-12-12 13:08 | REP ---
FACET BLOCK: The images were reviewed with Dr. Scott. The patient has a history of low back pain. The portable C-arm was provided in the OR for Dr. Fallon for fluoroscopy guidance. Two intraoperative fluoroscopic spot films were obtained for needle placement verification for left lumbar facet injection. The films are on the PACs system and are available for review. 33 seconds of fluoroscopic time was utilized for this procedure. Reviewed by ALVAREZ Franco 12/13/2016 04:14 PEdited and Signed by Raymundo Scott MD 12/13/2016 04:21 P
--- NOTE | 2016-12-22 23:38 | ECWPNPC ---
PATIENT NAME: SHITAL HA : 1955 GENDER: FEMALE VISIT DATE: 12/12/2016 DISCHARGE DATE: 12/12/16956 VISIT LOCKED DATE TIME: PHYSICIAN: TASHA ANGLIN RESOURCE: TASHA ANGLIN REASON FOR APPOINTMENT 1. FACET HISTORY OF PRESENT ILLNESS HISTORY OF PRESENT ILLNESS: PAIN THE PATIENT DESCRIBES THE PAIN... FALL RISK SCREENING: SCREENING :NO FALLS IN THE PAST YEAR CURRENT MEDICATIONS TAKING MAG-200 200 MG TABLET 1TAB ORALLY TWICE DAILY, NOTES: 12-11-16799 TAKING LISINOPRIL 10 MG TABLET 1 TABLET ORALLY ONCE A DAY, NOTES: 12-12-16699 TAKING VITAMIN D3 5000 UNIT TABLET ORALLY DAILY, NOTES: 12-11-16799 TAKING TYLENOL 8 HOUR 650 MG TABLET EXTENDED RELEASE 2 TABLETS NEEDED ORALLY EVERY 8 HRS, NOTES: 12-11-16799 TAKING IBUPROFEN 400 MG TABLET 1 TABLET ORALLY FOUR TIMES DAILY, NOTES: 12-11-16 230 TAKING MELATONIN 5 MG TABLET 1 TABLET AT BEDTIME NEEDED WITH FOOD ORALLY ONCE A DAY, NOTES: 12-11-162199 TAKING LIDODERM 5 % PATCH 1 PATCH TO SKIN REMOVE AFTER 12 HOURS EXTERNALLY ONCE A DAY PRN, NOTES: 11-30-16 TAKING PERCOCET 5-325 MG TABLET 1 TABLET NEEDED ORALLY EVERY 6 HRS PRN MDD4, NOTES: 11-30-16 09 NOT-TAKING LIDODERM 5 % PATCH 1 PATCH TO INTACT SKIN REMOVE AFTER 12 HOURS EXTERNALLY ONCE A DAY NOT-TAKING KETOROLAC TROMETHAMINE 10 MG TABLET 1 TABLET NEEDED ORALLY EVERY 6 HRS NOT-TAKING IBUPROFEN 800 MG TABLET 1 TABLET ORALLY WITH FOOD TWICE DAILY PRN FOR PAIN MDD2 NOT-TAKING TYLENOL 325 MG TABLET 2 TABLETS NEEDED ORALLY EVERY 6 HRS NOT-TAKING ALEVE 220 MG TABLET 1 TABLET NEEDED ORALLY EVERY 12 HRS NOT-TAKING [id number] COMPLEX - TABLET ORALLY MEDICATION LIST REVIEWED AND RECONCILED WITH THE PATIENT PAST MEDICAL HISTORY HTN 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 NO . CHILLS NO . FEVER NO . INFECTION: DO YOU HAVE NEW INFECTIONS? NO . DO YOU HAVE HISTORY OF MRSA? NO . MUSCULOSKELETAL: ANY NEW PATTERNS OF PAIN OR NUMBNESS? NO . GASTROENTEROLOGY: ANY NEW CHANGE IN BOWEL CONTROL? NO . GENITOURINARY: ANY NEW CHANGE IN BLADDER CONTROL? NO . IS THERE A CHANCE YOU COULD BE ? NO . HEMATOLOGY/LYMPH: DO YOU TAKE ANY BLOOD THINNERS? (FOR EXAMPLE- COUMADIN, PLAVIX, AGGRENOX, PLATEL, PRADAXA, OR XARELTO) NO . WHEN WAS YOUR LAST DOSE? DATE: TIME: . NEUROLOGY: HAVE YOU FALLEN IN THE PAST 6 MONTHS? NO . ANY NEW EXTREMITY NUMBNESS OR WEAKNESS? NO . CARDIOLOGY: DO YOU HAVE A PACEMAKER OR DEFIBRILLATOR? NO . RESPIRATORY: HAVE YOU BEEN SICK IN THE PAST WEEK? NO . FEVER NO . FLU LIKE SYMPTOMS? NO . COUGH NO . INTEGUMENTARY: DO YOU HAVE ANY RASHES OR OPEN SORES? NO . ALLERGIC/IMMUNO: ARE YOU ALLERGIC TO SHELLFISH OR IV DYE? NO . ANY NEW ALLERGIES? NO . PSYCHIATRIC: DO YOU HAVE THOUGHTS OF HURTING YOURSELF OR SOMEONE ELSE? NO . ARE YOU ABUSED, NEGLECTED, OR IN AN UNSAFE ENVIRONMENT? NO . ENDOCRINOLOGY: ARE YOU DIABETIC? NO . OTHER: DO YOU NEED ANY PRESCRIPTIONS? NO . IF YES, PLEASE LIST: ____ . ANY NEW PROBLEMS WITH YOUR MEDICATIONS? NO . WHEN DID YOU LAST EAT? ____LAST NIGHT 6PM . WHEN DID YOU LAST DRINK? ____0715 . WHAT DID YOU LAST DRINK? ____WATER . NAME OF PERSON DRIVING YOU HOME? ____BART . DO YOU HAVE ANY OTHER QUESTIONS OR CONCERNS NO . REVIEWED BY: PROVIDER: . VITAL SIGNS WT 190.0 LBS, HT 65 IN, BMI 31.61 INDEX, BP 139/76 MM HG, HR 73 /MIN, RR 16 /MIN, TEMP 98.2 F, OXYGEN SAT % 98%, NA INITIALS TL 0842. ASSESSMENTS SPONDYLOSIS WITHOUT MYELOPATHY OR RADICULOPATHY, LUMBOSACRAL REGION - M47.817 (PRIMARY) PROCEDURES PN LUMBAR FACET BLOCK DIAGNOSTIC PRE PROCEDURE DIAGNOSIS LUMBOSACRAL SPONDYLOSIS POST PROCEDURE DIAGNOSIS LUMBOSACRAL SPONDYLOSIS PROCEDURE LEFT L5-S1 FACET BLOCK DIAGNOSTIC NUMBER #[address] TASHA ANGLIN CORRUGATOR OPERATOR HELPER NONE ANESTHESIA LOCAL PRE PROCEDURE NOTE THE PATIENT WITH HISTORY OF CHRONIC LOW BACK PAIN. I EVALUATED THE PATIENT AND REVIEWED THE CHART. I WENT OVER THE RISKS, ALTERNATIVES, AND BENEFITS ASSOCIATED WITH THIS PROCEDURE. THE PATIENT WOULD LIKE TO PROCEED AND GAVE CONSENT TO PERFORM THE PROCEDURE. AGREED WITH THE PATIENT WE ARE DOING THIS PROCEDURE TO DETERMINE IF THE PATIENT IS A CANDIDATE FOR A RADIOFREQUENCY ABLATION OF THE FACETS JOINTS. THE PATIENT DENIES UNEXPLAINABLE WEIGHT LOSS, FEVER, CHILLS, OR NEW CHANGES IN URINARY OR BOWEL CONTROL DESCRIPTION OF PROCEDURE THE PATIENT WAS BROUGHT TO THE PROCEDURE ROOM AND PLACED IN THE PRONE POSITION. THE LUMBOSACRAL AREA WAS CLEANED WITH CHLORAPREP SOLUTION AND DRAPED ASEPTICALLY. THE PROCEDURE WAS DONE UNDER STERILE CONDITIONS. I CHECKED LATERALITY AND THE LEVEL WHERE THE PROCEDURE WAS GOING TO BE PERFORMED WITH THE PATIENT AND THE SUPPORTING STAFF AT THE MOMENT OF THE TIME OUT IN THE PROCEDURE ROOM. UNDER FLUOROSCOPIC GUIDANCE, TARGETS WERE SELECTED AT THE INTERSECTION OF THE LEFT TRANSVERSE PROCESS OF L5 AND ALA OF S1 WITH ITS RESPECTIVE SUPERIOR ARTICULAR PROCESS. LIDOCAINE WAS USED TO NUMB THE SKIN AND THE SUBCUTANEOUS TISSUE BELOW IT. SPINAL NEEDLE, 22-GAUGE WAS ADVANCED UNDER FLUOROSCOPIC GUIDANCE AND FOLLOWING PATIENT FEEDBACK UNTIL THE TARGETS WERE REACHED. POSITION OF THE NEEDLES WAS VERIFIED WITH AP AND LATERAL VIEWS. AFTER PROPER POSITION OF THE NEEDLES WAS ACHIEVED, ISOVUE-M DYE 30% 0.1 ML WAS INJECTED AT EACH SITE SHOWING ADEQUATE SPREAD OF THE DYE. THEN A SOLUTION OF 0.4 ML OF BUPIVACAINE 0.25% WAS INJECTED AT EACH SITE. THERE WAS NO EVIDENCE OF BLOOD, PARESTHESIA OR CEREBROSPINAL FLUID DURING THE PROCEDURE. THE PATIENT WAS SENT TO THE RECOVERY ROOM. THE PATIENT WAS MOVING THE EXTREMITIES AND DOING WELL. THERE WAS NO COMPLICATION DURING THE PROCEDURE. FLUOROSCOPY TIME WAS 33 SECONDS POST PROCEDURE NOTE THE PATIENT WILL DOCUMENT HIS PAIN LEVEL AND RESPONSE TO THIS PROCEDURE EVERY 30 MINUTES. THE PATIENT WILL BE SEEN IN A FOLLOW UP IN THE NEXT FEW WEEKS. FURTHER DETERMINATION FOR HIS CASE WILL BE DONE AT THE NEXT VISIT. INSTRUCTIONS WERE GIVEN, QUESTIONS WERE ANSWERED, AND THE PATIENT EXPRESSED UNDERSTANDING AND AGREED WITH THE PLAN. I, MUKUL CAMPOS, DOCUMENTED THE ABOVE INFORMATION ACTING A SCRIBE FOR DR. ANGLIN. I HAVE REVIEWED THE ABOVE DOCUMENT, WRITTEN BY MUKUL CAMPOS SCRIBDevante AND I VERIFY THAT IT IS ACCURATE DIAGNOSTIC IMAGING [facility] FACET BLOCK (PAIN)[id number] PROCEDURE CODES 07284 INJ PARAVERT F JNT L/S 1 LEV 6045F RADXPS IN END AWCY1UALOP PXD DISPOSITION & COMMUNICATION FOLLOW UP 3 WEEKS ELECTRONICALLY SIGNED BY TASHA ANGLIN MD ON 12/22/2016 AT 07:05 PM EDT DISCLAIMER : THIS IS A VISIT SUMMARY EXTRACTED FROM THE [employer] [facility] CHART. IT IS NOT A COPY OF THE [facility] PROGRESS NOTE. HEATHERD
== END ==
LOC: M PAIN 08:40
PROVIDERS: ATTEND Anesthesiology
DX: G89.29 Other chronic pain (principal); M47.817 Spondylosis without myelopathy or radiculopathy, lumbosacral region; I10 Essential (primary) hypertension; J30.2 Other seasonal allergic rhinitis; R00.8 Other abnormalities of heart beat; H91.93 Unspecified hearing loss, bilateral; M19.90 Unspecified osteoarthritis, unspecified site; Z79.891 Long term (current) use of opiate analgesic; Z79.899 Other long term (current) drug therapy; Z88.1 Allergy status to other antibiotic agents; Z88.8 Allergy status to other drugs, medicaments and biological substances
CPT/HCPCS: 64493; Q9967

== ENCOUNTER → 2016-12-31 | Outpatient (CLI) | payer BC ==
[~2016-12-31] MED LIST changes: -BUPIVACAINE HCL 0.25% 30 ML VIAL As Ordered ONE; -ISOVUE-M 300 61% 15ML VIAL (Q9967) As Ordered ONE; -LIDOCAINE 1% SDV INJ 30 ML VIAL As Ordered ONE
== END ==
LOC: M PAIN 11:20
PROVIDERS: ATTEND Nurse Practitioner Family
DX: G89.29 Other chronic pain (principal); M54.5 Low back pain; M43.07 Spondylolysis, lumbosacral region; I10 Essential (primary) hypertension; J30.2 Other seasonal allergic rhinitis; H91.93 Unspecified hearing loss, bilateral; M19.90 Unspecified osteoarthritis, unspecified site; Z79.891 Long term (current) use of opiate analgesic; Z79.1 Long term (current) use of non-steroidal anti-inflammatories (NSAID); Z79.899 Other long term (current) drug therapy; Z88.1 Allergy status to other antibiotic agents; Z88.8 Allergy status to other drugs, medicaments and biological substances

== ENCOUNTER → 2017-01-28 | Outpatient (CLI) | payer BC ==
[~2017-01-28] MED LIST changes: +BUPIVACAINE HCL 0.25% 30 ML VIAL As Ordered ONE; +ISOVUE-M 300 61% 15ML VIAL (Q9967) As Ordered ONE; +LIDOCAINE 1% SDV INJ 30 ML VIAL As Ordered ONE; +NAPR-855 PO; -NAPR375T2 PO; +TRIAMCINOLONE ACETONIDE SUSP 40 MG/ML VIAL (J3301) As Ordered ONE; -ULTR37.52 PO; +ULTR37.54 PO
--- NOTE | 2017-01-28 16:57 | REP ---
Partial lumbar spine series: Five views . History: Injection procedure for pain. 44 seconds of fluoroscopy time is reported. Findings: A sequence of five fluoroscopically obtained last image hold procedural spot radiographs of the lumbar spine document needle position and contrast injection associated with injection procedure. Signed by Aden Peck MD 01/28/2017 04:48 P
--- NOTE | 2017-02-13 01:07 | ECWPNPC ---
PATIENT NAME: SHITAL HA : 1955 GENDER: FEMALE VISIT DATE: 01/28/2017 DISCHARGE DATE: 01/28/17 1710 VISIT LOCKED DATE TIME: PHYSICIAN: TASHA ANGLIN RESOURCE: TASHA ANGLIN REASON FOR APPOINTMENT 1. RF LEFT L5/S1 HISTORY OF PRESENT ILLNESS HISTORY OF PRESENT ILLNESS: PAIN THE PATIENT DESCRIBES THE PAIN... FALL RISK SCREENING: SCREENING :NO FALLS IN THE PAST YEAR CURRENT MEDICATIONS TAKING MAG-200 200 MG TABLET 1TAB ORALLY TWICE DAILY, NOTES: 01/27/17 06 TAKING LISINOPRIL 10 MG TABLET 1 TABLET ORALLY ONCE A DAY, NOTES: 01/28/17699 TAKING VITAMIN D3 5000 UNIT TABLET ORALLY DAILY, NOTES: 01/27/17 06 TAKING TYLENOL 8 HOUR 650 MG TABLET EXTENDED RELEASE 2 TABLETS NEEDED ORALLY EVERY 8 HRS, NOTES: 01/27/172199 TAKING IBUPROFEN 400 MG TABLET 1 TABLET ORALLY FOUR TIMES DAILY, NOTES: 01/28/17 07 TAKING LIDODERM 5 % PATCH 1 PATCH TO SKIN REMOVE AFTER 12 HOURS EXTERNALLY ONCE A DAY PRN, NOTES: LAST WEEK TAKING PERCOCET 5-325 MG TABLET 1 TABLET NEEDED ORALLY EVERY 6 HRS PRN MDD4, NOTES: 01/25/17 TAKING MAALOX 600 MG TABLET CHEWABLE ORALLY TWICE A DAY NEEDED, NOTES: 01/28/17699 TAKING PEPCID 20 MG TABLET 1 TAB ORALLY TWICE A DAY, NOTES: 01/27/17 07 NOT-TAKING MELATONIN 5 MG TABLET 1 TABLET AT BEDTIME NEEDED WITH FOOD ORALLY ONCE A DAY NOT-TAKING LIDODERM 5 % PATCH 1 PATCH TO INTACT SKIN REMOVE AFTER 12 HOURS EXTERNALLY ONCE A DAY NOT-TAKING KETOROLAC TROMETHAMINE 10 MG TABLET 1 TABLET NEEDED ORALLY EVERY 6 HRS NOT-TAKING IBUPROFEN 800 MG TABLET 1 TABLET ORALLY WITH FOOD TWICE DAILY PRN FOR PAIN MDD2 NOT-TAKING TYLENOL 325 MG TABLET 2 TABLETS NEEDED ORALLY EVERY 6 HRS NOT-TAKING ALEVE 220 MG TABLET 1 TABLET NEEDED ORALLY EVERY 12 HRS NOT-TAKING [id number] COMPLEX - TABLET ORALLY MEDICATION LIST REVIEWED AND RECONCILED WITH THE PATIENT PAST MEDICAL HISTORY HTN 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 CONSTITUTIONAL: ANY CHANGE IN YOUR MEDICAL CONDITION? NO . CHILLS NO . FEVER NO . INFECTION: DO YOU HAVE NEW INFECTIONS? NO . DO YOU HAVE HISTORY OF MRSA? NO . MUSCULOSKELETAL: ANY NEW PATTERNS OF PAIN OR NUMBNESS? NO . GASTROENTEROLOGY: ANY NEW CHANGE IN BOWEL CONTROL? NO . GENITOURINARY: ANY NEW CHANGE IN BLADDER CONTROL? NO . IS THERE A CHANCE YOU COULD BE ? NO . HEMATOLOGY/LYMPH: DO YOU TAKE ANY BLOOD THINNERS? (FOR EXAMPLE- COUMADIN, PLAVIX, AGGRENOX, PLATEL, PRADAXA, OR XARELTO) NO . WHEN WAS YOUR LAST DOSE? DATE: TIME: . NEUROLOGY: HAVE YOU FALLEN IN THE PAST 6 MONTHS? NO . ANY NEW EXTREMITY NUMBNESS OR WEAKNESS? NO . CARDIOLOGY: DO YOU HAVE A PACEMAKER OR DEFIBRILLATOR? NO . RESPIRATORY: HAVE YOU BEEN SICK IN THE PAST WEEK? NO . FEVER NO . FLU LIKE SYMPTOMS? NO . COUGH NO . INTEGUMENTARY: DO YOU HAVE ANY RASHES OR OPEN SORES? NO . ALLERGIC/IMMUNO: ARE YOU ALLERGIC TO SHELLFISH OR IV DYE? NO . ANY NEW ALLERGIES? NO . PSYCHIATRIC: DO YOU HAVE THOUGHTS OF HURTING YOURSELF OR SOMEONE ELSE? NO . ARE YOU ABUSED, NEGLECTED, OR IN AN UNSAFE ENVIRONMENT? NO . ENDOCRINOLOGY: ARE YOU DIABETIC? NO . OTHER: DO YOU NEED ANY PRESCRIPTIONS? YES, PERCOSET . IF YES, PLEASE LIST: ____ . ANY NEW PROBLEMS WITH YOUR MEDICATIONS? NO . WHEN DID YOU LAST EAT? 01/27/17 1800 . WHEN DID YOU LAST DRINK? 01/28/17 0900 . WHAT DID YOU LAST DRINK? WATER . NAME OF PERSON DRIVING YOU HOME? OLIVA . DO YOU HAVE ANY OTHER QUESTIONS OR CONCERNS NO . VITAL SIGNS WT 200.8 LBS, HT 65 IN, BMI 33.41 INDEX, BP 160/84 MM HG, HR 73 /MIN, RR 16 /MIN, TEMP 97.3 F, OXYGEN SAT % 96%, NA INITIALS SC 11:52, REVIEWED BY: LS. ASSESSMENTS SPONDYLOSIS WITHOUT MYELOPATHY OR RADICULOPATHY, LUMBOSACRAL REGION - M47.817 (PRIMARY) PROCEDURES PN RADIOFREQUENCY PRE PROCEDURE DIAGNOSES 1. LUMBOSACRAL SPONDYLOSIS POST PROCEDURE DIAGNOSES 1. LUMBOSACRAL SPONDYLOSIS PROCEDURE LEFT L5-S1 LUMBAR FACET RADIOFREQUENCY SURGEON DR. TASHA ANGLIN ROOF TILER NONE ANESTHESIA LOCAL PRE PROCEDURE REPORT THE PATIENT HAS HISTORY OF CHRONIC LOW BACK PAIN. I EVALUATE THE PATIENT AND REVIEWED THE CHART. I WENT OVER THE RISKS, ALTERNATIVES, AND BENEFITS ASSOCIATED WITH THIS PROCEDURE. THE PATIENT WOULD LIKE TO PROCEED AND GIVE CONSENT TO PERFORMED THE PROCEDURE. THE PATIENT DENIES UNEXPLAINABLE WEIGHT LOSS, FEVER, CHILLS, OR NEW CHANGES IN URINARY OR BOWEL CONTROL DESCRIPTION OF PROCEDURE THE PATIENT WAS BROUGHT TO THE PROCEDURE ROOM AND PLACED IN THE PRONE POSITION. THE LUMBOSACRAL AREA WAS CLEANED WITH CHLORAPREP SOLUTION AND DRAPED ASEPTICALLY. THE PROCEDURE WAS DONE UNDER STERILE CONDITIONS. I CHECKED LATERALITY AND THE LEVEL WHERE THE PROCEDURE WAS GOING TO BE PERFORMED WITH THE PATIENT AND THE SUPPORTING STAFF AT THE MOMENT OF THE TIME OUT IN THE PROCEDURE ROOM. UNDER FLUOROSCOPIC GUIDANCE, TARGETS WERE SELECTED AT THE INTERSECTION OF THE LEFT TRANSVERSE PROCESS OF L5 AND ALA OF S1 WITH ITS RESPECTIVE SUPERIOR ARTICULAR PROCESS. LIDOCAINE WAS USED TO NUMB THE SKIN AND THE SUBCUTANEOUS TISSUE BELOW IT. RADIOFREQUENCY NEEDLES 22-GAUGE 15 CM LONG WITH 10 MM ACTIVE CURVE TIP WERE ADVANCED UNDER FLUOROSCOPIC GUIDANCE AND FOLLOWING PATIENT FEEDBACK UNTIL THE TARGET AREA WAS REACHED. POSITION OF THE NEEDLES WAS VERIFIED WITH AP AND LATERAL VIEWS. AFTER PROPER POSITION OF THE NEEDLE WAS ACHIEVED, WE WORKED WITH THE LEFT SELECTED MEDIAN BRANCHES OF L4 AND THE DORSAL RAMI OF L5. WE MEASURED THE CORRESPONDING IMPEDANCES, SENSORY STIMULATION AND MOTOR RESPONSES INDICATED IN THE RADIOFREQUENCY WORK SHEET. POSITION OF THE NEEDLES WAS VERIFIED AGAIN WITH AP AND LATERAL VIEWS. LIDOCAINE 1%, 2 ML, WAS INJECTED AT EACH LEVEL. RADIOFREQUENCY WAS DONE AT EACH LEVEL AT 80 DEGREES FOR 90 SECONDS. AFTER RADIOFREQUENCY WAS DONE, THE PATIENT RECEIVED BUPIVACAINE 0.125% 1 CC WITH KENALOG 5 MG AT EACH SITE. THERE WAS NO EVIDENCE OF BLOOD, PARESTHESIA OR CEREBROSPINAL FLUID DURING THE PROCEDURE. THE PATIENT WAS SENT TO THE RECOVERY ROOM. THE PATIENT WAS MOVING THE EXTREMITIES AND DOING WELL. THERE WAS NO COMPLICATION DURING THE PROCEDURE. FLUOROSCOPY TIME WAS 44 SECONDS POST PROCEDURE NOTE THE PATIENT WILL BE SEEN IN A FOLLOW UP IN THE NEXT FEW WEEKS. INSTRUCTIONS WERE GIVEN, QUESTIONS WERE ANSWERED, AND THE PATIENT EXPRESSED UNDERSTANDING AND AGREES WITH THE PLAN. I, ABDIRAHMAN GLYNN, DOCUMENTED THE ABOVE INFORMATION ACTING A SCRIBE FOR DR. ANGLIN. I HAVE REVIEWED THE ABOVE DOCUMENT, WRITTEN BY ABDIRAHMAN RUSSELL AND I VERIFY THAT IT IS ACCURATE DIAGNOSTIC IMAGING [facility] FACET BLOCK (PAIN)[id number] PROCEDURE CODES 18878 DESTROY LUMB/SAC FACET JNT 6045F RADXPS IN END [id number] PXD DISPOSITION & COMMUNICATION FOLLOW UP 3 WEEKS ELECTRONICALLY SIGNED BY TASHA ANGLIN MD ON 02/10/2017 AT 11:23 AM EDT DISCLAIMER : THIS IS A VISIT SUMMARY EXTRACTED FROM THE [employer] CHART. IT IS NOT A COPY OF THE [employer] PROGRESS NOTE. MTDD
== END ==
LOC: M PAIN 11:40
PROVIDERS: ATTEND Anesthesiology
DX: G89.29 Other chronic pain (principal); M47.817 Spondylosis without myelopathy or radiculopathy, lumbosacral region; I10 Essential (primary) hypertension; J30.2 Other seasonal allergic rhinitis; M19.90 Unspecified osteoarthritis, unspecified site; H91.93 Unspecified hearing loss, bilateral; R00.8 Other abnormalities of heart beat; Z88.1 Allergy status to other antibiotic agents; Z88.8 Allergy status to other drugs, medicaments and biological substances; Z79.1 Long term (current) use of non-steroidal anti-inflammatories (NSAID); Z79.891 Long term (current) use of opiate analgesic; Z79.899 Other long term (current) drug therapy
CPT/HCPCS: 64635; J3301; Q9967

== ENCOUNTER → 2017-02-17 | Outpatient (CLI) | payer BC ==
[~2017-02-17] MED LIST changes: -BUPIVACAINE HCL 0.25% 30 ML VIAL As Ordered ONE; -ISOVUE-M 300 61% 15ML VIAL (Q9967) As Ordered ONE; -LIDOCAINE 1% SDV INJ 30 ML VIAL As Ordered ONE; -TRIAMCINOLONE ACETONIDE SUSP 40 MG/ML VIAL (J3301) As Ordered ONE
--- NOTE | 2017-03-04 01:04 | ECWPNPC ---
PATIENT NAME: SHITAL HA : 1955 GENDER: FEMALE VISIT DATE: 02/17/2017 DISCHARGE DATE: 02/17/17 1619 VISIT LOCKED DATE TIME: PHYSICIAN: TASHA ANGLIN RESOURCE: TASHA ANGLIN REASON FOR APPOINTMENT 1. LOW BACK PAIN HISTORY OF PRESENT ILLNESS HISTORY OF PRESENT ILLNESS: PAIN THE PATIENT DESCRIBES THE PAIN... 61 YEAR OLD FEMALE PATIENT WITH HISTORY OF CHRONIC LOW BACK PAIN. PATIENT DESCRIBES THE PAIN ACHING AND SCORE WITH A PAIN SCORE OF 2-5/10. PATIENT RECEIVED A LEFT RADIOFREQUENCY ON 01/28/17 AND REPORTS HAVING OVER 50% RELIEF FROM THE PAIN. PATIENT REPORTS SHE IS ABLE TO DO THINGS SHE WAS UNABLE TO DO PRIOR TO THE RADIOFREQUENCY. PATIENT WAS ABLE TO REDUCE THE CONSUMPTION OF MEDICATION WELL. CURRENTLY THE PATIENT IS USING TYLENOL, IBUPROFEN, LIDODERM PATCH, AND PERCOCET NEEDED WHEN THE PAIN INCREASES. PATIENT DENIES UNEXPLAINABLE WEIGHT LOSS, FEVER, CHILLS, NEW CHANGES ON HER URINARY OR BOWEL CONTROL. FALL RISK SCREENING: SCREENING :NO FALLS IN THE PAST YEAR CURRENT MEDICATIONS TAKING MAG-200 200 MG TABLET 1TAB ORALLY TWICE DAILY, NOTES: 01/27/17 06 TAKING LISINOPRIL 10 MG TABLET 1 TABLET ORALLY ONCE A DAY, NOTES: 01/28/17 07 TAKING TYLENOL 8 HOUR 650 MG TABLET EXTENDED RELEASE 2 TABLETS NEEDED ORALLY EVERY 8 HRS, NOTES: 01/27/17 2200 TAKING IBUPROFEN 400 MG TABLET 1 TABLET ORALLY FOUR TIMES DAILY, NOTES: 01/28/17 07 TAKING LIDODERM 5 % PATCH 1 PATCH TO SKIN REMOVE AFTER 12 HOURS EXTERNALLY ONCE A DAY PRN, NOTES: LAST WEEK TAKING PERCOCET 5-325 MG TABLET 1 TABLET NEEDED ORALLY EVERY 6 HRS PRN MDD4, NOTES: 01/25/17 TAKING MAALOX 600 MG TABLET CHEWABLE ORALLY TWICE A DAY NEEDED, NOTES: 01/28/17 07 TAKING PEPCID 20 MG TABLET 1 TAB ORALLY TWICE A DAY, NOTES: 01/27/17 07 TAKING BENADRYL ALLERGY 25 MG TABLET 1 TABLET NEEDED ORALLY EVERY 8 HRS NOT-TAKING VITAMIN D3 5000 UNIT TABLET ORALLY DAILY, NOTES: 01/27/17 0600 NOT-TAKING MELATONIN 5 MG TABLET 1 TABLET AT BEDTIME NEEDED WITH FOOD ORALLY ONCE A DAY NOT-TAKING LIDODERM 5 % PATCH 1 PATCH TO INTACT SKIN REMOVE AFTER 12 HOURS EXTERNALLY ONCE A DAY NOT-TAKING KETOROLAC TROMETHAMINE 10 MG TABLET 1 TABLET NEEDED ORALLY EVERY 6 HRS NOT-TAKING IBUPROFEN 800 MG TABLET 1 TABLET ORALLY WITH FOOD TWICE DAILY PRN FOR PAIN MDD2 NOT-TAKING TYLENOL 325 MG TABLET 2 TABLETS NEEDED ORALLY EVERY 6 HRS NOT-TAKING ALEVE 220 MG TABLET 1 TABLET NEEDED ORALLY EVERY 12 HRS NOT-TAKING [id number] COMPLEX - TABLET ORALLY MEDICATION LIST REVIEWED AND RECONCILED WITH THE PATIENT PAST MEDICAL HISTORY HTN 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 CONSTITUTIONAL: ANY CHANGE IN YOUR MEDICAL CONDITION? NO . CHILLS NO . FEVER NO . INFECTION: DO YOU HAVE NEW INFECTIONS? NO . DO YOU HAVE HISTORY OF MRSA? NO . MUSCULOSKELETAL: ANY NEW PATTERNS OF PAIN OR NUMBNESS? YES PT HAD RADIOFREQUENCY FACET BLOCK 01/28, REPORTS VERY GOOD RESULTS, WITH PAIN NEVER GETTING OVER A SIX, AND IS MUCH LESS INTENSE. TODAY REPORTS PAIN IS A 0-1, AFTER TAKING TYLENOL AND MOTRIN TODAY. . GASTROENTEROLOGY: ANY NEW CHANGE IN BOWEL CONTROL? NO . GENITOURINARY: ANY NEW CHANGE IN BLADDER CONTROL? NO . IS THERE A CHANCE YOU COULD BE ? NO . HEMATOLOGY/LYMPH: DO YOU TAKE ANY BLOOD THINNERS? (FOR EXAMPLE- COUMADIN, PLAVIX, AGGRENOX, PLATEL, PRADAXA, OR XARELTO) NO . WHEN WAS YOUR LAST DOSE? DATE: TIME: . NEUROLOGY: HAVE YOU FALLEN IN THE PAST 6 MONTHS? NO . ANY NEW EXTREMITY NUMBNESS OR WEAKNESS? NO . CARDIOLOGY: DO YOU HAVE A PACEMAKER OR DEFIBRILLATOR? NO . RESPIRATORY: HAVE YOU BEEN SICK IN THE PAST WEEK? NO . FEVER NO . FLU LIKE SYMPTOMS? NO . COUGH NO . INTEGUMENTARY: DO YOU HAVE ANY RASHES OR OPEN SORES? NO . ALLERGIC/IMMUNO: ARE YOU ALLERGIC TO SHELLFISH OR IV DYE? NO . ANY NEW ALLERGIES? NO . PSYCHIATRIC: DO YOU HAVE THOUGHTS OF HURTING YOURSELF OR SOMEONE ELSE? NO . ARE YOU ABUSED, NEGLECTED, OR IN AN UNSAFE ENVIRONMENT? NO . ENDOCRINOLOGY: ARE YOU DIABETIC? NO . OTHER: DO YOU NEED ANY PRESCRIPTIONS? NO . IF YES, PLEASE LIST: ____ . ANY NEW PROBLEMS WITH YOUR MEDICATIONS? NO . WHEN DID YOU LAST EAT? ____ . WHEN DID YOU LAST DRINK? ____ . WHAT DID YOU LAST DRINK? ____ . NAME OF PERSON DRIVING YOU HOME? ____ . DO YOU HAVE ANY OTHER QUESTIONS OR CONCERNS NO . VITAL SIGNS WT 195 LBS, HT 65 IN, BMI 32.45 INDEX, BP 142/96 MM HG, HR 69 /MIN, RR 16 /MIN, TEMP 98.0 F, OXYGEN SAT % 96%, NA INITIALS SC 15:36. EXAMINATION : PATIENT IS ALERT O X 3 AND COOPERATIVE. TENDERNESS IN THE LOWER BACK AND PARASPINAL MUSCLE GROUP. MRI OF THE LUMBAR SPINE DONE ON 01/28/16 SHOWS MULTILEVEL DISC BULGES AND FACET ARTHROSIS. ASSESSMENTS SPONDYLOSIS WITHOUT MYELOPATHY OR RADICULOPATHY, LUMBAR REGION - M47.816 (PRIMARY) SPONDYLOSIS WITHOUT MYELOPATHY OR RADICULOPATHY, LUMBOSACRAL REGION - M47.817 TREATMENT SPONDYLOSIS WITHOUT MYELOPATHY OR RADICULOPATHY, LUMBAR REGION NOTES: WE DISCUSSED SEVERAL ISSUES WITH MRS. HA'S PAIN MANAGEMENT CASE. AT THIS TIME THE PATIENT WILL CONTINUE USING THE SAME MEDICATION WELL GABAPENTIN. PATIENT WAS ADVISED TO SLOWLY INCREASING GABAPENTIN AND TO STOP THE MEDICATION IF SHE HAS ANY ADVERSE SIDE EFFECTS. PATIENT RECEIVED A RADIOFREQUENCY ON 01/28/17 AND REPORTS DOING VERY WELL FROM THE INJECTION WITH OVER 50% RELIEF FROM THE PAIN. WE WILL NOT HOLD INTERVENTIONS AT THIS TIME. PATIENT WILL FOLLOW UP IN 3 WEEKS. INSTRUCTIONS WERE GIVEN, QUESTIONS WERE ANSWERED, PATIENT REPORTS UNDERSTANDING AND AGREES WITH THE PLAN. I, ABDIRAHMAN GLYNN, DOCUMENTED THE ABOVE INFORMATION ACTING A SCRIBE FOR DR. ANGLIN. I HAVE REVIEWED THE ABOVE DOCUMENT, WRITTEN BY ABDIRAHMAN RUSSELL AND I VERIFY THAT IT IS ACCURATE. OTHERS START GABAPENTIN CAPSULE, 300 MG, 1 CAPSULE, ORALLY, THREE TIMES A DAY FOR PAIN, 30 DAY(S), 90, REFILLS 1 PROCEDURE CODES FA211 ESTABILISHED PATIENT [facility] FACILITY CHARGE G8427 DOC MEDS VERIFIED W/PT OR RE N5640 PAIN ASSESS POS TOOL F/U PLAN DOC DISPOSITION & COMMUNICATION FOLLOW UP 3 WEEKS ELECTRONICALLY SIGNED BY TASHA ANGLIN MD ON 03/03/2017 AT 05:49 PM EDT DISCLAIMER : THIS IS A VISIT SUMMARY EXTRACTED FROM THE [employer] CHART. IT IS NOT A COPY OF THE [employer] PROGRESS NOTE. HEATHERD
== END ==
LOC: M PAIN 15:20
PROVIDERS: ATTEND Anesthesiology
DX: G89.29 Other chronic pain (principal); M47.816 Spondylosis without myelopathy or radiculopathy, lumbar region; M47.817 Spondylosis without myelopathy or radiculopathy, lumbosacral region; I10 Essential (primary) hypertension; J30.2 Other seasonal allergic rhinitis; H91.93 Unspecified hearing loss, bilateral; M19.90 Unspecified osteoarthritis, unspecified site; R00.8 Other abnormalities of heart beat; Z79.891 Long term (current) use of opiate analgesic; Z79.899 Other long term (current) drug therapy; Z88.1 Allergy status to other antibiotic agents; Z88.8 Allergy status to other drugs, medicaments and biological substances

== ENCOUNTER → 2017-03-14 | Outpatient (CLI) | payer BC ==
--- NOTE | 2017-04-02 02:47 | ECWPNPC ---
PATIENT NAME: SHITAL HA : 1955 GENDER: FEMALE VISIT DATE: 03/14/2017 DISCHARGE DATE: 03/14/17 1127 VISIT LOCKED DATE TIME: PHYSICIAN: PIERRE MOLINA RESOURCE: PIERRE MOLINA REASON FOR APPOINTMENT 1. MEDS HISTORY OF PRESENT ILLNESS HISTORY OF PRESENT ILLNESS: PAIN THE PATIENT DESCRIBES THE PAIN... FALL RISK SCREENING: SCREENING :NO FALLS IN THE PAST YEAR TODAY'S VISIT: NOTES: RATES PAIN TODAY 2/10. DESCRIBES PAIN CONSTANT, ACHING AND SORE. IS NOTING PAIN RADIATING INTO LEFT LEG PARTICULARLY ALONG LATERAL ASPECT OF LEFT CALF AND KNEE. IS VERY PLEASED WITH HER IMPROVEMENT OVERALL BUT PAIN IS BEGINNING TO RETURN AND SHE WANTS TO STOP IT EARLY. IS USUALLY ABLE TO TAKE PERCOCET VERY INFREQ - IS STILL USING IBUPROFEN AND OCCASIONAL TYLENOL. . CURRENT MEDICATIONS TAKING MAG-200 200 MG TABLET 1TAB ORALLY TWICE DAILY TAKING LISINOPRIL 10 MG TABLET 1 TABLET ORALLY ONCE A DAY TAKING TYLENOL 8 HOUR 650 MG TABLET EXTENDED RELEASE 2 TABLETS NEEDED ORALLY EVERY 8 HRS TAKING IBUPROFEN 400 MG TABLET 1 TABLET ORALLY FOUR TIMES DAILY TAKING LIDODERM 5 % PATCH 1 PATCH TO SKIN REMOVE AFTER 12 HOURS EXTERNALLY ONCE A DAY PRN TAKING PERCOCET 5-325 MG TABLET 1 TABLET NEEDED ORALLY EVERY 6 HRS PRN MDD4 TAKING MAALOX 600 MG TABLET CHEWABLE ORALLY TWICE A DAY NEEDED TAKING BENADRYL ALLERGY 25 MG TABLET 1 TABLET NEEDED ORALLY EVERY 8 HRS TAKING GABAPENTIN 300 MG CAPSULE 1 CAPSULE ORALLY THREE TIMES A DAY FOR PAIN NOT-TAKING PEPCID 20 MG TABLET 1 TAB ORALLY TWICE A DAY NOT-TAKING VITAMIN D3 5000 UNIT TABLET ORALLY DAILY, NOTES: 01/27/17 0600 NOT-TAKING MELATONIN 5 MG TABLET 1 TABLET AT BEDTIME NEEDED WITH FOOD ORALLY ONCE A DAY NOT-TAKING LIDODERM 5 % PATCH 1 PATCH TO INTACT SKIN REMOVE AFTER 12 HOURS EXTERNALLY ONCE A DAY NOT-TAKING KETOROLAC TROMETHAMINE 10 MG TABLET 1 TABLET NEEDED ORALLY EVERY 6 HRS NOT-TAKING IBUPROFEN 800 MG TABLET 1 TABLET ORALLY WITH FOOD TWICE DAILY PRN FOR PAIN MDD2 NOT-TAKING TYLENOL 325 MG TABLET 2 TABLETS NEEDED ORALLY EVERY 6 HRS NOT-TAKING ALEVE 220 MG TABLET 1 TABLET NEEDED ORALLY EVERY 12 HRS NOT-TAKING [id number] COMPLEX - TABLET ORALLY MEDICATION LIST REVIEWED AND RECONCILED WITH THE PATIENT PAST MEDICAL HISTORY HTN 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 CONSTITUTIONAL: ANY CHANGE IN YOUR MEDICAL CONDITION? NO . CHILLS NO . FEVER NO . INFECTION: DO YOU HAVE NEW INFECTIONS? NO . DO YOU HAVE HISTORY OF MRSA? NO . MUSCULOSKELETAL: ANY NEW PATTERNS OF PAIN OR NUMBNESS? NO . GASTROENTEROLOGY: ANY NEW CHANGE IN BOWEL CONTROL? NO . GENITOURINARY: ANY NEW CHANGE IN BLADDER CONTROL? NO . IS THERE A CHANCE YOU COULD BE ? NO . HEMATOLOGY/LYMPH: DO YOU TAKE ANY BLOOD THINNERS? (FOR EXAMPLE- COUMADIN, PLAVIX, AGGRENOX, PLATEL, PRADAXA, OR XARELTO) NO . WHEN WAS YOUR LAST DOSE? DATE: TIME: . NEUROLOGY: HAVE YOU FALLEN IN THE PAST 6 MONTHS? NO . ANY NEW EXTREMITY NUMBNESS OR WEAKNESS? NO . CARDIOLOGY: DO YOU HAVE A PACEMAKER OR DEFIBRILLATOR? NO . RESPIRATORY: HAVE YOU BEEN SICK IN THE PAST WEEK? NO . FEVER NO . FLU LIKE SYMPTOMS? NO . COUGH NO . INTEGUMENTARY: DO YOU HAVE ANY RASHES OR OPEN SORES? NO . ALLERGIC/IMMUNO: ARE YOU ALLERGIC TO SHELLFISH OR IV DYE? NO . ANY NEW ALLERGIES? NO . PSYCHIATRIC: DO YOU HAVE THOUGHTS OF HURTING YOURSELF OR SOMEONE ELSE? NO . ARE YOU ABUSED, NEGLECTED, OR IN AN UNSAFE ENVIRONMENT? NO . ENDOCRINOLOGY: ARE YOU DIABETIC? NO . OTHER: DO YOU NEED ANY PRESCRIPTIONS? YES, PERCOSET . IF YES, PLEASE LIST: ____ . ANY NEW PROBLEMS WITH YOUR MEDICATIONS? NO . WHEN DID YOU LAST EAT? ____ . WHEN DID YOU LAST DRINK? ____ . WHAT DID YOU LAST DRINK? ____ . NAME OF PERSON DRIVING YOU HOME? ____ . DO YOU HAVE ANY OTHER QUESTIONS OR CONCERNS NO . VITAL SIGNS WT 204 LBS, HT 65 IN, BMI 33.94 INDEX, BP 151/79 MM HG, HR 70 /MIN, RR 16 /MIN, TEMP 97.9 F, OXYGEN SAT % 96, REVIEWED BY: EM. EXAMINATION GENERAL EXAMINATION: PSYCHALERT , ORIENTED X 3 , APPROPRIATE MOOD AND AFFECT, SMILING AND TALKATIVE. LUNGS:CLEAR TO AUSCULTATION BILATERALLY. HEART:HEART RATE REGULAR. MUSCULOSKELETAL:RISES EASILY TO A STANDING POSITION . POINT TENDERNESS OVER LUMBAR SPINOUS PROCESSES. MILD TENDERNESS OVER LEFT SACRUM AND LEFT SIJ. NO SPECIFIC TENDERNESS OVER LEFT PIRIFORMIS. MINIMAL WEAKNESS NOTED IN LEFT QUAD. POSTURE UPRIGHT, GAIT NONANTALGIC. ASSESSMENTS LUMBAR RADICULOPATHY - M54.16 (PRIMARY) SPONDYLOSIS WITHOUT MYELOPATHY OR RADICULOPATHY, LUMBAR REGION - M47.816 SPONDYLOSIS WITHOUT MYELOPATHY OR RADICULOPATHY, LUMBOSACRAL REGION - M47.817 TREATMENT LUMBAR RADICULOPATHY TRANSFORAMINAL LUMB PIERRE MICHAEL 03/14/2017 11:15:28 AM > LEFT TRANSFORAMINAL EPIDURAL L4-5, L5-S1 NOTES: CONTINUE WALKING, RIDING, EXERCISES AND STRETCHES. COMPLETE LABS FOR KIDNEY FUNCTION. PREVENTIVE MEDICINE DISCUSSED AND GAVE INFO ON TRANSFORAMINAL AND PRE PROCEDURE CARE/ PT EXPRESSED UNDERSTANDING. PROCEDURE CODES FA211 ESTABILISHED PATIENT [facility] FACILITY CHARGE DISPOSITION & COMMUNICATION FOLLOW UP REASON: CHECK AUTH FOR LEFT TRANSFORAMINAL L4-5, L5-S1 ELECTRONICALLY SIGNED BY PAM BAJWA ON 04/01/2017 AT 01:48 PM EDT DISCLAIMER : THIS IS A VISIT SUMMARY EXTRACTED FROM THE [employer] CHART. IT IS NOT A COPY OF THE [employer] PROGRESS NOTE. MAGI
== END ==
LOC: M PAIN 10:45
PROVIDERS: ATTEND Nurse Practitioner Family
DX: G89.29 Other chronic pain (principal); M54.16 Radiculopathy, lumbar region; M47.816 Spondylosis without myelopathy or radiculopathy, lumbar region; M47.817 Spondylosis without myelopathy or radiculopathy, lumbosacral region; J30.2 Other seasonal allergic rhinitis; Z79.891 Long term (current) use of opiate analgesic; Z79.899 Other long term (current) drug therapy; Z79.1 Long term (current) use of non-steroidal anti-inflammatories (NSAID); H91.93 Unspecified hearing loss, bilateral; M19.90 Unspecified osteoarthritis, unspecified site; Z88.1 Allergy status to other antibiotic agents; Z88.8 Allergy status to other drugs, medicaments and biological substances

== ENCOUNTER → 2017-03-31 | Outpatient (CLI) | payer BC ==
[~2017-03-31] MED LIST changes: +ISOVUE-M 300 61% 15ML VIAL (Q9967) As Ordered ONE; +LIDOCAINE 1% SDV INJ 30 ML VIAL As Ordered ONE; +diazePAM 5 MG TAB As Ordered ONE; +methylPREDNISolone SUSP 40 MG/ML (DEPO-medrol) VIAL (J1030) As Ordered ONE; +oxyCODONE 5MG TAB As Ordered ONE
--- NOTE | 2017-04-01 00:22 | ECWPNPC ---
PATIENT NAME: SHITAL HA : 1955 GENDER: FEMALE VISIT DATE: 03/31/2017 DISCHARGE DATE: 03/31/17 1320 VISIT LOCKED DATE TIME: PHYSICIAN: TASHA ANGLIN RESOURCE: TASHA ANGLIN REASON FOR APPOINTMENT 1. LESI HISTORY OF PRESENT ILLNESS HISTORY OF PRESENT ILLNESS: PAIN THE PATIENT DESCRIBES THE PAIN... FALL RISK SCREENING: SCREENING :NO FALLS IN THE PAST YEAR CURRENT MEDICATIONS TAKING MAG-200 200 MG TABLET 1TAB ORALLY TWICE DAILY, NOTES: 03-30-17 2100 TAKING LISINOPRIL 10 MG TABLET 1 TABLET ORALLY ONCE A DAY, NOTES: 03-31-17 0700 TAKING TYLENOL 8 HOUR 650 MG TABLET EXTENDED RELEASE 2 TABLETS NEEDED ORALLY EVERY 8 HRS, NOTES: 03-30-17 5 PM TAKING IBUPROFEN 400 MG TABLET 1 TABLET ORALLY FOUR TIMES DAILY, NOTES: 03-31-17 0700 TAKING LIDODERM 5 % PATCH 1 PATCH TO SKIN REMOVE AFTER 12 HOURS EXTERNALLY ONCE A DAY PRN, NOTES: NONE TAKING PERCOCET 5-325 MG TABLET 1 TABLET NEEDED ORALLY EVERY 6 HRS PRN MDD4, NOTES: WEEK AGO TAKING MAALOX 600 MG TABLET CHEWABLE ORALLY TWICE A DAY NEEDED TAKING BENADRYL ALLERGY 25 MG TABLET 1 TABLET NEEDED ORALLY EVERY 8 HRS TAKING GABAPENTIN 300 MG CAPSULE 1 CAPSULE ORALLY THREE TIMES A DAY FOR PAIN, NOTES: 03-31-17 0700 NOT-TAKING PEPCID 20 MG TABLET 1 TAB ORALLY TWICE A DAY NOT-TAKING VITAMIN D3 5000 UNIT TABLET ORALLY DAILY, NOTES: 01/27/17 0600 NOT-TAKING MELATONIN 5 MG TABLET 1 TABLET AT BEDTIME NEEDED WITH FOOD ORALLY ONCE A DAY NOT-TAKING LIDODERM 5 % PATCH 1 PATCH TO INTACT SKIN REMOVE AFTER 12 HOURS EXTERNALLY ONCE A DAY NOT-TAKING KETOROLAC TROMETHAMINE 10 MG TABLET 1 TABLET NEEDED ORALLY EVERY 6 HRS NOT-TAKING IBUPROFEN 800 MG TABLET 1 TABLET ORALLY WITH FOOD TWICE DAILY PRN FOR PAIN MDD2 NOT-TAKING TYLENOL 325 MG TABLET 2 TABLETS NEEDED ORALLY EVERY 6 HRS NOT-TAKING ALEVE 220 MG TABLET 1 TABLET NEEDED ORALLY EVERY 12 HRS NOT-TAKING [id number] COMPLEX - TABLET ORALLY MEDICATION LIST REVIEWED AND RECONCILED WITH THE PATIENT PAST MEDICAL HISTORY HTN 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 RECREATIONAL DRUG USE DENIES. CAFFEINE 1/DAY. OCCUPATION: PHARMACIST AT [employer]. DIET: NO HX EATING DISORDERS. EXERCISE: 3XWK FOR 45 MINS, AEROBIC. MARITAL STATUS: . OTHERS AT HOME: SPOUSE, 2 ADULT DAUGHTERS, 10 DOGS, 10 HORSES, 10 SHEEP. LEARNING BARRIERS / SPECIAL NEEDS ABILITY TO UNDERSTAND VERBAL INSTRUCTIONS GOOD, ABILITY TO UNDERSTAND WRITTEN INSTRUCTIONS GOOD, KNOWLEDGE OF EDUCATIONAL NEEDS/TREATMENT PLAN GOOD, MU-ISM? YES MANDAEN, LEARNING PREFERENCE READING, ORIENTED TO PLAN OF CARE: PATIENT, TEACHING MATERIALS PRINTED HANDOUT, RESPONSE TO EDUCATION EXPLAINES ACCURATELY/VERBALIZES UNDERSTANDING, PAIN MANAGEMENT PATIENT. MISCELLANEOUS: LAST DENTAL APPT 2011, LAST EYE APPT 2011, COLONOSCOPY [address] WILSON, LABS WITH PCP-DR. RIVERA. PAIN CLINIC PFS, CLERGY, PUBLIC HEALTH REFERRALS PFS REFERRAL NEEDED?NO CLERGY REFERRAL NEEDED?NO PUBLIC HEALTH REFERRAL NEEDED?NO HAS THE PATIENT BEEN EDUCATED REGARDING HIS/HER PLAN OF CARE?YES HAS THE PATIENT BEEN EDUCATED REGARDING PAIN, THE RISK FOR PAIN, THE IMPORTANCE OF EFFECTIVE PAIN MANAGEMENT, AND THE PAIN ASSESSMENT PROCESS?YES ADVANCE DIRECTIVES HEALTH CARE PROXY?NO POWER OF FAMILY SPECIALIST?NO DOMESTIC VIOLENCE DENIES HX SEXUAL, PHYSICAL, EMOTIONAL ABUSE. REVIEW OF SYSTEMS REVIEWED BY: PROVIDER: . CONSTITUTIONAL: ANY CHANGE IN YOUR MEDICAL CONDITION? NO . CHILLS NO . FEVER NO . INFECTION: DO YOU HAVE NEW INFECTIONS? NO . DO YOU HAVE HISTORY OF MRSA? NO . MUSCULOSKELETAL: ANY NEW PATTERNS OF PAIN OR NUMBNESS? NO . GASTROENTEROLOGY: ANY NEW CHANGE IN BOWEL CONTROL? NO . GENITOURINARY: ANY NEW CHANGE IN BLADDER CONTROL? NO . IS THERE A CHANCE YOU COULD BE ? NO . HEMATOLOGY/LYMPH: DO YOU TAKE ANY BLOOD THINNERS? (FOR EXAMPLE- COUMADIN, PLAVIX, AGGRENOX, PLATEL, PRADAXA, OR XARELTO) NO . WHEN WAS YOUR LAST DOSE? DATE: TIME: . NEUROLOGY: HAVE YOU FALLEN IN THE PAST 6 MONTHS? NO . ANY NEW EXTREMITY NUMBNESS OR WEAKNESS? NO . CARDIOLOGY: DO YOU HAVE A PACEMAKER OR DEFIBRILLATOR? NO . RESPIRATORY: HAVE YOU BEEN SICK IN THE PAST WEEK? NO . FEVER NO . FLU LIKE SYMPTOMS? NO . COUGH NO . INTEGUMENTARY: DO YOU HAVE ANY RASHES OR OPEN SORES? NO . ALLERGIC/IMMUNO: ARE YOU ALLERGIC TO SHELLFISH OR IV DYE? NO . ANY NEW ALLERGIES? NO . PSYCHIATRIC: DO YOU HAVE THOUGHTS OF HURTING YOURSELF OR SOMEONE ELSE? NO . ARE YOU ABUSED, NEGLECTED, OR IN AN UNSAFE ENVIRONMENT? NO . ENDOCRINOLOGY: ARE YOU DIABETIC? NO . OTHER: DO YOU NEED ANY PRESCRIPTIONS? YES, . IF YES, PLEASE LIST: PERCOCET, IBUPROFAN 600, GABAPENTIN . ANY NEW PROBLEMS WITH YOUR MEDICATIONS? NO . WHEN DID YOU LAST EAT? 03-30-17 5:30 PM . WHEN DID YOU LAST DRINK? 03-31-17 0700 . WHAT DID YOU LAST DRINK? WATER . NAME OF PERSON DRIVING YOU HOME? OLIVA . DO YOU HAVE ANY OTHER QUESTIONS OR CONCERNS YES, EFFECT OF GABAPENTIN? . VITAL SIGNS WT 200 LBS, HT 65 IN, BMI 33.28 INDEX, BP 149/83 MM HG, HR 71 /MIN, RR 16 /MIN, TEMP 97.6 F, OXYGEN SAT % 97%, NA INITIALS SC 10:39, REVIEWED BY: CM. ASSESSMENTS INTERVERTEBRAL DISC DISORDER WITH RADICULOPATHY OF LUMBAR REGION - M51.16 (PRIMARY) PROCEDURES PRE PROCEDURE DIAGNOSIS LUMBAR DISC DISORDER WITH RADICULOPATHY POST PROCEDURE DIAGNOSIS LUMBAR DISC DISORDER WITH RADICULOPATHY PROCEDURE LUMBAR EPIDURAL STEROID INJECTION UNDER FLUOROSCOPIC GUIDANCE SURGEON DR. TASHA ANGLIN ROTARY DRILLER NONE ANESTHESIA LOCAL PRE PROCEDURE NOTE THE PATIENT HAS A HISTORY OF CHRONIC LOW BACK PAIN. I EVALUATE THE PATIENT AND REVIEWED THE CHART. I WENT OVER THE RISKS, ALTERNATIVES, AND BENEFITS ASSOCIATED WITH THIS PROCEDURE. THE PATIENT WOULD LIKE TO PROCEED AND GIVE CONSENT TO PERFORMED THE PROCEDURE. THE PATIENT DENIES UNEXPLAINABLE WEIGHT LOSS, FEVER, CHILLS, OR NEW CHANGES IN URINARY OR BOWEL CONTROL. DESCRIPTION OF PROCEDURE THE PATIENT WAS BROUGHT TO THE PROCEDURE ROOM AND PLACED IN THE PRONE POSITION. THE LUMBOSACRAL AREA WAS CLEANED WITH BETADINE SOLUTION AND DRAPED ASEPTICALLY. THE PROCEDURE WAS DONE UNDER STERILE CONDITIONS. I CHECKED LATERALITY AND THE LEVEL WHERE THE PROCEDURE WAS GOING TO BE PERFORMED WITH THE PATIENT AND THE SUPPORTING STAFF AT THE MOMENT OF THE TIME OUT IN THE PROCEDURE ROOM. UNDER FLUOROSCOPIC GUIDANCE, THE TARGET POINT WAS SELECTED AT THE INTERLAMINAR LEVEL OF L3-L4. LIDOCAINE WAS USED TO NUMB THE SKIN AND THE SUBCUTANEOUS TISSUE BELOW IT. EPIDURAL TUOHY NEEDLE, 17-GAUGE, WAS ADVANCED UNDER FLUOROSCOPIC GUIDANCE AND FOLLOWING PATIENT FEEDBACK UNTIL THE EPIDURAL SPACE WAS REACHED, 7 CM DEEP INTO THE SKIN BY THE LOSS OF RESISTANCE TECHNIQUE. ISOVUE M DYE 30%, 0.25 ML, WAS INJECTED SHOWING ADEQUATE SPREAD OF THE DYE. THEN, A SOLUTION OF 3 ML OF NORMAL SALINE WITH DEPO-MEDROL 60 MG WAS INJECTED SLOWLY FOLLOWING PATIENT FEEDBACK. THERE WAS NO EVIDENCE OF BLOOD, PARESTHESIA OR CEREBROSPINAL FLUID DURING THE PROCEDURE. THE PATIENT WAS SENT TO THE RECOVERY ROOM. THE PATIENT WAS MOVING THE EXTREMITIES AND DOING WELL. THERE WAS NO COMPLICATION DURING THE PROCEDURE. FLUOROSCOPY TIME WAS 14 SECONDS. POST PROCEDURE NOTE THE PATIENT WILL BE SEEN IN A FOLLOW UP IN THE NEXT FEW WEEKS. INSTRUCTIONS WERE GIVEN, QUESTIONS WERE ANSWERED, AND THE PATIENT EXPRESSED UNDERSTANDING AND AGREES WITH THE PLAN. I, ABDIRAHMAN GLYNN, DOCUMENTED THE ABOVE INFORMATION ACTING A SCRIBE FOR DR. ANGLIN. I HAVE REVIEWED THE ABOVE DOCUMENT, WRITTEN BY ABDIRAHMAN KONGIBDevante AND I VERIFY THAT IT IS ACCURATE DIAGNOSTIC IMAGING [facility] FLUORO GUIDE SPINE INJECTION (PAIN)[id number] PROCEDURE CODES 97159 LUMBAR/SACRAL W/ IMAGING 6045F RADXPS IN END [id number] PXD DISPOSITION & COMMUNICATION FOLLOW UP 3 WEEKS ELECTRONICALLY SIGNED BY TASHA ANGLIN MD ON 03/31/2017 AT 03:11 PM EDT DISCLAIMER : THIS IS A VISIT SUMMARY EXTRACTED FROM THE [employer] CHART. IT IS NOT A COPY OF THE [employer] PROGRESS NOTE. MTDD
== END ==
LOC: M PAIN 10:45
PROVIDERS: ATTEND Anesthesiology
DX: G89.29 Other chronic pain (principal); M51.16 Intervertebral disc disorders with radiculopathy, lumbar region; I10 Essential (primary) hypertension; J30.2 Other seasonal allergic rhinitis; H91.93 Unspecified hearing loss, bilateral; M19.90 Unspecified osteoarthritis, unspecified site; Z79.891 Long term (current) use of opiate analgesic; Z79.1 Long term (current) use of non-steroidal anti-inflammatories (NSAID); Z79.899 Other long term (current) drug therapy; Z88.1 Allergy status to other antibiotic agents; Z88.8 Allergy status to other drugs, medicaments and biological substances
CPT/HCPCS: 62323; J1030; Q9967

== ENCOUNTER → 2017-04-01 | Outpatient (REF) | payer BC ==
[~2017-04-01] MED LIST changes: -ISOVUE-M 300 61% 15ML VIAL (Q9967) As Ordered ONE; -LIDOCAINE 1% SDV INJ 30 ML VIAL As Ordered ONE; -diazePAM 5 MG TAB As Ordered ONE; -methylPREDNISolone SUSP 40 MG/ML (DEPO-medrol) VIAL (J1030) As Ordered ONE; -oxyCODONE 5MG TAB As Ordered ONE
[2017-04-01 12:15] LABS: BASO % 0.3 % (0.0-1.0); EOS % 0.2 % (0.0-3.0); LARGE UNSTAINED CELL # 0.1 K/mm3 (0.0-0.4); LARGE UNSTAINED CELL % 1.4 % (0.0-4.0); LYMPH % 11.6 % (24.0-44.0); MEAN CORPUSCULAR HEMOGLOBIN 31.1 pg (27.0-33.0); MEAN CORPUSCULAR HGB CONC 35.2 g/dl (32.0-36.5); MEAN CORPUSCULAR VOLUME 88.2 fl (80.0-96.0); MONO # 0.4 K/mm3 (0.0-0.8); MONO % 4.6 % (0.0-5.0); NEUTROPHILS # 7.1 K/mm3 (1.8-7.7); NEUTROPHILS % 81.9 % (36.0-66.0); PLATELET COUNT, AUTOMATED 284 k/mm3 (150-450); RED CELL DISTRIBUTION WIDTH 12.6 % (11.5-14.5); WHITE BLOOD COUNT 8.6 K/mm3 (4.0-10.0)
[2017-04-01 12:48] LABS: ALBUMIN 4.2 GM/DL (3.2-5.2); ALKALINE PHOSPHATASE 70 U/L (45-117); ALT/SGPT 25 U/L (12-78); ANION GAP 8 MEQ/L (8-16); AST/SGOT 12 U/L (15-37); BILIRUBIN,TOTAL 0.4 MG/DL (0.2-1.0); BLOOD UREA NITROGEN 17 MG/DL (7-18); CALCIUM LEVEL 9.6 MG/DL (8.8-10.2); CARBON DIOXIDE LEVEL 29 MEQ/L (21-32); CHLORIDE LEVEL 106 MEQ/L (98-107); CHOLESTEROL LEVEL 272 MG/DL (<200); CREATININE FOR GFR 0.72 MG/DL (0.55-1.02); GLOMERULAR FILTRATION RATE > 60.0 (>45); GLUCOSE, FASTING 115 MG/DL (80-110); POTASSIUM SERUM 4.1 MEQ/L (3.5-5.1); SODIUM LEVEL 143 MEQ/L (136-145); TOTAL PROTEIN 7.7 GM/DL (6.4-8.2); TRIGLYCERIDES LEVEL 83 MG/DL (<150)
== END ==
LOC: M LABDRAW1 10:18
PROVIDERS: ATTEND Nurse Practitioner Family
DX: I10 Essential (primary) hypertension (principal); E78.4 Other hyperlipidemia

== ENCOUNTER → 2017-04-23 | Outpatient (CLI) | payer BC ==
--- NOTE | 2017-04-26 00:27 | ECWPNPC ---
PATIENT NAME: SHITAL HA : 1955 GENDER: FEMALE VISIT DATE: 04/23/2017 DISCHARGE DATE: 04/23/17 1537 VISIT LOCKED DATE TIME: PHYSICIAN: PIERRE MOLINA RESOURCE: PIERRE MOLINA REASON FOR APPOINTMENT 1. POST LESI HISTORY OF PRESENT ILLNESS TODAY'S VISIT: NOTES: RATES PAIN TODAY 0/10 WITH MEDS, 2/10 WITHOUT MEDS. IS S/P LESB COMPLETED ON 03/31/17. NOTES THAT PAIN LEVEL PRIOR WAS 2/10 WITH IBU AND THEN POST INJECTION PAIN LEVEL CAME TO 0/10 AND WAS MANAGEBLE WITH TYLENOL. HAS BEEN ABLE TO STAND . WALK AND RIDE HER HORSE. SHE IS VERY PLEASED WITH HER PROGRESS. CURRENT MEDICATIONS UNKNOWN MAG-200 200 MG TABLET 1TAB ORALLY TWICE DAILY UNKNOWN LISINOPRIL 10 MG TABLET 1 TABLET ORALLY ONCE A DAY UNKNOWN TYLENOL 8 HOUR 650 MG TABLET EXTENDED RELEASE 2 TABLETS NEEDED ORALLY EVERY 8 HRS UNKNOWN LIDODERM 5 % PATCH 1 PATCH TO SKIN REMOVE AFTER 12 HOURS EXTERNALLY ONCE A DAY PRN UNKNOWN MAALOX 600 MG TABLET CHEWABLE ORALLY TWICE A DAY NEEDED UNKNOWN BENADRYL ALLERGY 25 MG TABLET 1 TABLET NEEDED ORALLY EVERY 8 HRS UNKNOWN IBUPROFEN 400 MG TABLET 1 TABLET ORALLY FOUR TIMES DAILY PRN PAIN TAKE WITH FOOD UNKNOWN GABAPENTIN 300 MG CAPSULE 1 CAPSULE ORALLY THREE TIMES A DAY FOR PAIN UNKNOWN PERCOCET 5-325 MG TABLET 1 TABLET NEEDED ORALLY EVERY 6 HRS PRN MDD4 UNKNOWN PEPCID 20 MG TABLET 1 TAB ORALLY TWICE A DAY UNKNOWN VITAMIN D3 5000 UNIT TABLET ORALLY DAILY UNKNOWN MELATONIN 5 MG TABLET 1 TABLET AT BEDTIME NEEDED WITH FOOD ORALLY ONCE A DAY UNKNOWN LIDODERM 5 % PATCH 1 PATCH TO INTACT SKIN REMOVE AFTER 12 HOURS EXTERNALLY ONCE A DAY UNKNOWN KETOROLAC TROMETHAMINE 10 MG TABLET 1 TABLET NEEDED ORALLY EVERY 6 HRS UNKNOWN IBUPROFEN 800 MG TABLET 1 TABLET ORALLY WITH FOOD TWICE DAILY PRN FOR PAIN MDD2 UNKNOWN TYLENOL 325 MG TABLET 2 TABLETS NEEDED ORALLY EVERY 6 HRS UNKNOWN ALEVE 220 MG TABLET 1 TABLET NEEDED ORALLY EVERY 12 HRS UNKNOWN [id number] COMPLEX - TABLET ORALLY MEDICATION LIST REVIEWED AND RECONCILED WITH THE PATIENT PAST MEDICAL HISTORY HTN 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 RECREATIONAL DRUG USE DENIES. CAFFEINE 1/DAY. OCCUPATION: PHARMACIST AT [employer]. DIET: NO HX EATING DISORDERS. EXERCISE: 3XWK FOR 45 MINS, AEROBIC. MARITAL STATUS: . OTHERS AT HOME: SPOUSE, 2 ADULT DAUGHTERS, 10 DOGS, 10 HORSES, 10 SHEEP. LEARNING BARRIERS / SPECIAL NEEDS ABILITY TO UNDERSTAND VERBAL INSTRUCTIONS GOOD, ABILITY TO UNDERSTAND WRITTEN INSTRUCTIONS GOOD, KNOWLEDGE OF EDUCATIONAL NEEDS/TREATMENT PLAN GOOD, YAZDANISM? YES YARSANI, LEARNING PREFERENCE READING, ORIENTED TO PLAN OF CARE: PATIENT, TEACHING MATERIALS PRINTED HANDOUT, RESPONSE TO EDUCATION EXPLAINES ACCURATELY/VERBALIZES UNDERSTANDING, PAIN MANAGEMENT PATIENT. MISCELLANEOUS: LAST DENTAL APPT 2011, LAST EYE APPT 2011, COLONOSCOPY [address] WILSON, LABS WITH PCP-DR. RIVERA. PAIN CLINIC PFS, CLERGY, PUBLIC HEALTH REFERRALS PFS REFERRAL NEEDED?NO CLERGY REFERRAL NEEDED?NO PUBLIC HEALTH REFERRAL NEEDED?NO HAS THE PATIENT BEEN EDUCATED REGARDING HIS/HER PLAN OF CARE?YES HAS THE PATIENT BEEN EDUCATED REGARDING PAIN, THE RISK FOR PAIN, THE IMPORTANCE OF EFFECTIVE PAIN MANAGEMENT, AND THE PAIN ASSESSMENT PROCESS?YES ADVANCE DIRECTIVES HEALTH CARE PROXY?NO POWER OF OBSERVER ELECTRICAL PROSPECTING?NO DOMESTIC VIOLENCE DENIES HX SEXUAL, PHYSICAL, EMOTIONAL ABUSE. REVIEW OF SYSTEMS FOLLOW-UP ROS: CARDIOLOGY: NEGATIVE FOR, CHEST PAIN, NO LEG SWELLING . GI/ NEGATIVE FOR LOSS OF BLOWEL/BLADDER CONTROL . HEENT HARD OF HEARING . PULMONOLOGY: NEGATIVE FOR, COUGH, SHORTNESS OF BREATH . VITAL SIGNS WT 190 LBS, HT 65 IN, BMI 31.61 INDEX, BP 138/79 MM HG, HR 75 /MIN, RR 16 /MIN, TEMP 97.9 F, OXYGEN SAT % 96%, NA INITIALS SC 1500, REVIEWED BY: CM. EXAMINATION GENERAL EXAMINATION: PSYCHALERT , ORIENTED X 3 , APPROPRIATE MOOD AND AFFECT, SMILING AND TALKATIVE. LUNGS:CLEAR TO AUSCULTATION BILATERALLY. HEART:HEART RATE REGULAR. MUSCULOSKELETAL:RISES EASILY TO A STANDING POSITION MINIMAL TENDERNESS OVER LUMBAR SPINOUS PROCESSES. MILD TENDERNESS OVER LEFT SACRUM AND LEFT SIJ. NO SPECIFIC TENDERNESS OVER LEFT PIRIFORMIS. MINIMAL WEAKNESS NOTED IN LEFT QUAD. POSTURE UPRIGHT, GAIT NONANTALGIC. ASSESSMENTS LUMBAR RADICULOPATHY - M54.16 (PRIMARY) INTERVERTEBRAL DISC DISORDER WITH RADICULOPATHY OF LUMBAR REGION - M51.16 (PRIMARY) TREATMENT INTERVERTEBRAL DISC DISORDER WITH RADICULOPATHY OF LUMBAR REGION NOTES: WALK AND BE ACTIVE DAILY. CALL WHEN SCRIPTS DUE. CALL IF PAIN INCREASES. PROCEDURE CODES FA211 ESTABILISHED PATIENT [facility] CHARGE DISPOSITION & COMMUNICATION FOLLOW UP MID JUNE (REASON: BACK PAIN) ELECTRONICALLY SIGNED BY PAM BAJWA ON 04/25/2017 AT 05:17 PM EDT DISCLAIMER : THIS IS A VISIT SUMMARY EXTRACTED FROM THE [employer] CHART. IT IS NOT A COPY OF THE [employer] PROGRESS NOTE. MAGI
== END ==
LOC: M PAIN 14:45
PROVIDERS: ATTEND Nurse Practitioner Family
DX: G89.29 Other chronic pain (principal); M51.16 Intervertebral disc disorders with radiculopathy, lumbar region; I10 Essential (primary) hypertension; J30.2 Other seasonal allergic rhinitis; H91.93 Unspecified hearing loss, bilateral; Z79.1 Long term (current) use of non-steroidal anti-inflammatories (NSAID); Z79.899 Other long term (current) drug therapy; Z79.891 Long term (current) use of opiate analgesic

== ENCOUNTER → 2017-06-03 | Outpatient (REF) | payer BC | LOC: M LAB REF 12:02 | PROVIDERS: ATTEND Physician Assistant | DX: R30.0 Dysuria (principal) ==

== ENCOUNTER → 2017-06-26 | Outpatient (CLI) | payer BC ==
--- NOTE | 2017-06-27 01:44 | ECWPNPC ---
PATIENT NAME: SHITAL HA : 1955 GENDER: FEMALE VISIT DATE: 06/26/2017 DISCHARGE DATE: 06/26/17 1703 VISIT LOCKED DATE TIME: PHYSICIAN: PIERRE MOLINA RESOURCE: PIERRE MOLINA HISTORY OF PRESENT ILLNESS HISTORY OF PRESENT ILLNESS: PAIN THE PATIENT DESCRIBES THE PAIN... FALL RISK SCREENING: SCREENING :NO FALLS IN THE PAST YEAR TODAY'S VISIT: NOTES: RATES PAIN TODAY 6/10 WITHOUT ANY MEDICATION AND IS LOCATED ALONG THE LEFT MEDIAL AND LATERAL THIGH. SOME PAIN IS CENTERED IN LOW BACKDID HAVE LESB 03/31/17 WHICH DID HELP THE BACK PAIN BUT NOT THE LEFT THIGH PAIN MUCH THE RFI DID. HAS NEEDED TO INCREASE THE DOSE AND FREQUENCY OF IBUPROFEN TO KEEP THE PAIN UNDER CONTROL. PAIN IS BEGINNING TO EFFECT SLEEP. . CURRENT MEDICATIONS TAKING MAG-200 200 MG TABLET 2TAB ORALLY TWICE DAILY TAKING LISINOPRIL 10 MG TABLET 1 TABLET ORALLY ONCE A DAY TAKING TYLENOL 8 HOUR 650 MG TABLET EXTENDED RELEASE 2 TABLETS NEEDED ORALLY EVERY 8 HRS TAKING BENADRYL ALLERGY 25 MG TABLET 2 TABLET NEEDED ORALLY EVERY 8 HRS TAKING IBUPROFEN 400 MG TABLET 1 TABLET ORALLY FOUR TIMES DAILY PRN PAIN TAKE WITH FOOD TAKING GABAPENTIN 300 MG CAPSULE 1 CAPSULE ORALLY THREE TIMES A DAY FOR PAIN TAKING PERCOCET 5-325 MG TABLET 1 TABLET NEEDED ORALLY EVERY 6 HRS PRN MDD4 TAKING VITAMIN D3 2000 UNIT CAPSULE ORALLY DAILY TAKING MELATONIN 10 MG TABLET 1 TABLET AT BEDTIME NEEDED WITH FOOD ORALLY ONCE A DAY TAKING TYLENOL 325 MG TABLET 2 TABLETS NEEDED ORALLY EVERY 6 HRS TAKING TRAMADOL HCL 50 MG TABLET 1 TABLET NEEDED ORALLY EVERY 6 HRS NOT-TAKING LIDODERM 5 % PATCH 1 PATCH TO SKIN REMOVE AFTER 12 HOURS EXTERNALLY ONCE A DAY PRN NOT-TAKING MAALOX 600 MG TABLET CHEWABLE ORALLY TWICE A DAY NEEDED NOT-TAKING PEPCID 20 MG TABLET 1 TAB ORALLY TWICE A DAY NOT-TAKING LIDODERM 5 % PATCH 1 PATCH TO INTACT SKIN REMOVE AFTER 12 HOURS EXTERNALLY ONCE A DAY NOT-TAKING KETOROLAC TROMETHAMINE 10 MG TABLET 1 TABLET NEEDED ORALLY EVERY 6 HRS NOT-TAKING IBUPROFEN 800 MG TABLET 1 TABLET ORALLY WITH FOOD TWICE DAILY PRN FOR PAIN MDD2 NOT-TAKING ALEVE 220 MG TABLET 1 TABLET NEEDED ORALLY EVERY 12 HRS NOT-TAKING [id number] COMPLEX - TABLET ORALLY MEDICATION LIST REVIEWED AND RECONCILED WITH THE PATIENT PAST MEDICAL HISTORY HTN SEASONAL ALLERGIES-YEAR ROUND BIGEMINY HEARING LOSS WITH GEOVANY HEARING AIDES/READS LIPS ARTHRITIS ALLERGIES MIDAZOLAM HCL: NAUSEA/VOMITING: SIDE EFFECTS AUGMENTIN: DIARRHEA: SIDE EFFECTS SURGICAL HISTORY C SECTION X 2 CARPAL TUNNEL R TONSILLECTOMY COLONOSCOPY X2 SOCIAL HISTORY GENERAL: TOBACCO USE ARE YOU A:: NEVER SMOKER . RECREATIONAL DRUG USE DENIES. CAFFEINE 1/DAY. 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 EXERCISE: 3XWK FOR 45 MINS, AEROBIC. MARITAL STATUS: . OTHERS AT HOME: SPOUSE, 2 ADULT DAUGHTERS, 2 DOGS, 3 HORSES. LEARNING BARRIERS / SPECIAL NEEDS ABILITY TO UNDERSTAND VERBAL INSTRUCTIONS GOOD, ABILITY TO UNDERSTAND WRITTEN INSTRUCTIONS GOOD, KNOWLEDGE OF EDUCATIONAL NEEDS/TREATMENT PLAN GOOD, ROMAN CATHOLIC? YES GNOSTICISM, LEARNING PREFERENCE READING, ORIENTED TO PLAN OF CARE: PATIENT, TEACHING MATERIALS PRINTED HANDOUT, RESPONSE TO EDUCATION EXPLAINES ACCURATELY/VERBALIZES UNDERSTANDING, PAIN MANAGEMENT PATIENT. MISCELLANEOUS: LAST DENTAL APPT 2011, LAST EYE APPT 2011, COLONOSCOPY [address] WILSON, LABS WITH PCP-DR. RIVERA. PAIN CLINIC PFS, CLERGY, PUBLIC HEALTH REFERRALS PFS REFERRAL NEEDED?NO CLERGY REFERRAL NEEDED?NO PUBLIC HEALTH REFERRAL NEEDED?NO HAS THE PATIENT BEEN EDUCATED REGARDING HIS/HER PLAN OF CARE?YES HAS THE PATIENT BEEN EDUCATED REGARDING PAIN, THE RISK FOR PAIN, THE IMPORTANCE OF EFFECTIVE PAIN MANAGEMENT, AND THE PAIN ASSESSMENT PROCESS?YES ADVANCE DIRECTIVES HEALTH CARE PROXY?NO POWER OF DATABASE OPERATOR?NO DOMESTIC VIOLENCE DENIES HX SEXUAL, PHYSICAL, EMOTIONAL ABUSE. HOSPITALIZATION/MAJOR DIAGNOSTIC PROCEDURE BACK PAIN 01/2016 REVIEW OF SYSTEMS REVIEWED BY: PROVIDER: . CONSTITUTIONAL: ANY CHANGE IN YOUR MEDICAL CONDITION? NO . CHILLS NO . FEVER NO . INFECTION: DO YOU HAVE NEW INFECTIONS? NO . DO YOU HAVE HISTORY OF MRSA? NO . MUSCULOSKELETAL: ANY NEW PATTERNS OF PAIN OR NUMBNESS? NO . GASTROENTEROLOGY: ANY NEW CHANGE IN BOWEL CONTROL? NO . GENITOURINARY: ANY NEW CHANGE IN BLADDER CONTROL? NO . IS THERE A CHANCE YOU COULD BE ? NO . HEMATOLOGY/LYMPH: DO YOU TAKE ANY BLOOD THINNERS? (FOR EXAMPLE- COUMADIN, PLAVIX, AGGRENOX, PLATEL, PRADAXA, OR XARELTO) NO . WHEN WAS YOUR LAST DOSE? DATE: TIME: . NEUROLOGY: HAVE YOU FALLEN IN THE PAST 6 MONTHS? NO . ANY NEW EXTREMITY NUMBNESS OR WEAKNESS? NO . CARDIOLOGY: DO YOU HAVE A PACEMAKER OR DEFIBRILLATOR? NO . RESPIRATORY: HAVE YOU BEEN SICK IN THE PAST WEEK? NO . FEVER NO . FLU LIKE SYMPTOMS? NO . COUGH NO . INTEGUMENTARY: DO YOU HAVE ANY RASHES OR OPEN SORES? NO . ALLERGIC/IMMUNO: ARE YOU ALLERGIC TO SHELLFISH OR IV DYE? NO . ANY NEW ALLERGIES? NO . PSYCHIATRIC: DO YOU HAVE THOUGHTS OF HURTING YOURSELF OR SOMEONE ELSE? NO . ARE YOU ABUSED, NEGLECTED, OR IN AN UNSAFE ENVIRONMENT? NO . ENDOCRINOLOGY: ARE YOU DIABETIC? NO . OTHER: DO YOU NEED ANY PRESCRIPTIONS? NO . IF YES, PLEASE LIST: ____ . ANY NEW PROBLEMS WITH YOUR MEDICATIONS? NO . WHEN DID YOU LAST EAT? ____ . WHEN DID YOU LAST DRINK? ____ . WHAT DID YOU LAST DRINK? ____ . NAME OF PERSON DRIVING YOU HOME? ____ . DO YOU HAVE ANY OTHER QUESTIONS OR CONCERNS NO . VITAL SIGNS WT 187.0 LBS, HT 65 IN, BMI 31.12 INDEX, BP 140/83 MM HG, HR 85 /MIN, RR 18 /MIN, TEMP 96.6 F, OXYGEN SAT % 96%, NA INITIALS TL 1558. EXAMINATION GENERAL EXAMINATION: PSYCHALERT , ORIENTED X 3 , APPROPRIATE MOOD AND AFFECT, SMILING AND TALKATIVE. LUNGS:CLEAR TO AUSCULTATION BILATERALLY. HEART:HEART RATE REGULAR. MUSCULOSKELETAL:RISES EASILY TO A STANDING POSITION MILD TENDERNESS OVER LEFT LUMBAR SPINOUS PROCESSES. MILD TENDERNESS OVER LEFT SACRUM AND LEFT SIJ. NO SPECIFIC TENDERNESS OVER LEFT PIRIFORMIS. MINIMAL WEAKNESS NOTED IN LEFT QUAD. POSTURE UPRIGHT, GAIT NONANTALGIC. NO TENDERNESS OVER LEFT TROCANTER OR ILIOTIBIAL BAND.. ASSESSMENTS LUMBAR RADICULOPATHY - M54.16 (PRIMARY) SPONDYLOSIS WITHOUT MYELOPATHY OR RADICULOPATHY, LUMBAR REGION - M47.816 SPONDYLOSIS WITHOUT MYELOPATHY OR RADICULOPATHY, LUMBOSACRAL REGION - M47.817 TREATMENT LUMBAR RADICULOPATHY REFILL GABAPENTIN CAPSULE, 300 MG, 1 CAPSULE, ORALLY, THREE TIMES A DAY FOR PAIN, 90 DAY(S), 270, REFILLS 3 REFILL IBUPROFEN TABLET, 400 MG, 1 TABLET, ORALLY, FOUR TIMES DAILY PRN PAIN TAKE WITH FOOD, 90 DAY(S), 360, REFILLS 1 START TRAMADOL HCL TABLET, 50 MG, 1 -2 TABLET, ORALLY, EVERY 6 HRS PRN PAIN MDD=4, 30 DAY(S), 90, REFILLS 0 INJECTION FACET JOINT/NERVE LASHAUN/SACRALPIERRE MOLINA 06/26/2017 4:42:38 PM > DIAGNOSTIC LEFT L4-5 AND L5-S1 PROCEDURE CODES FA211 ESTABILISHED PATIENT [facility] CHARGE DISPOSITION & COMMUNICATION FOLLOW UP AFTER INJECTION (REASON: CHECK AUTH FOR L4-5, L5-S1 DIAGNOSTIC LUMBAR FACET BLOCK LEFT) ELECTRONICALLY SIGNED BY PAM BAJWA ON 06/26/2017 AT 05:28 PM EST DISCLAIMER : THIS IS A VISIT SUMMARY EXTRACTED FROM THE ECL[employer]ICALWORKS CHART. IT IS NOT A COPY OF THE [employer] PROGRESS NOTE. MAGI
== END ==
LOC: M PAIN 15:15
PROVIDERS: ATTEND Nurse Practitioner Family
DX: G89.29 Other chronic pain (principal); M54.16 Radiculopathy, lumbar region; M47.816 Spondylosis without myelopathy or radiculopathy, lumbar region; M47.817 Spondylosis without myelopathy or radiculopathy, lumbosacral region; I10 Essential (primary) hypertension; J30.2 Other seasonal allergic rhinitis; Z88.8 Allergy status to other drugs, medicaments and biological substances; Z88.1 Allergy status to other antibiotic agents; Z79.1 Long term (current) use of non-steroidal anti-inflammatories (NSAID); Z79.891 Long term (current) use of opiate analgesic; Z79.899 Other long term (current) drug therapy

== ENCOUNTER → 2017-07-22 | Outpatient (CLI) | payer BC ==
[~2017-07-22] MED LIST changes: -ACET50TAOT PO; +BUPIVACAINE HCL 0.25% 30 ML VIAL As Ordered; -HYDR12CA PO; -HYDR25TAB PO; +ISOVUE-M 300 61% 15ML VIAL (Q9967) As Ordered; +LIDOCAINE 1% SDV INJ 30 ML VIAL As Ordered; -NAPR-855 PO; -OXYC-517 PO; -ULTR37.54 PO; -ZANA4TAB PO
== END ==
LOC: M PAIN 08:45
DX: G89.29 Other chronic pain (principal); M47.816 Spondylosis without myelopathy or radiculopathy, lumbar region; I10 Essential (primary) hypertension; Z79.891 Long term (current) use of opiate analgesic; Z79.899 Other long term (current) drug therapy; Z88.1 Allergy status to other antibiotic agents; Z88.8 Allergy status to other drugs, medicaments and biological substances
CPT/HCPCS: Q9967

== ENCOUNTER → 2017-08-15 | Outpatient (CLI) | payer BC | LOC: M PAIN 14:15 | DX: M47.816 Spondylosis without myelopathy or radiculopathy, lumbar region (principal); M47.817 Spondylosis without myelopathy or radiculopathy, lumbosacral region; I10 Essential (primary) hypertension; M19.90 Unspecified osteoarthritis, unspecified site; J30.2 Other seasonal allergic rhinitis; R00.8 Other abnormalities of heart beat; Z79.01 Long term (current) use of anticoagulants; Z79.899 Other long term (current) drug therapy; Z88.1 Allergy status to other antibiotic agents; Z88.8 Allergy status to other drugs, medicaments and biological substances | CPT/HCPCS: G0463 ==

== ENCOUNTER → 2017-08-15 | Outpatient (REF) | payer BC ==
[2017-08-15 12:19] LABS: BASO % 0.8 % (0.0-1.0); EOS # 0.3 10^3/uL (0.0-0.50); EOS % 6.2 % (0.0-3.0); HEMATOCRIT 46.1 % (36.0-47.0); HEMOGLOBIN 15.2 g/dl (12.0-16.0); IMMATURE GRANULOCYTE % 0.2 % (0-0); LYMPH # 1.6 10^3/uL (1.5-4.5); LYMPH % 31.7 % (24.0-44.0); MEAN CORPUSCULAR HEMOGLOBIN 28.6 pg (27.0-33.0); MEAN CORPUSCULAR VOLUME 86.7 fl (80.0-96.0); MONO # 0.5 10^3/uL (0.0-0.8); MONO % 9.9 % (0.0-5.0); NEUTROPHILS # 2.6 10^3/uL (1.8-7.7); NEUTROPHILS % 51.2 % (36.0-66.0); PLATELET COUNT, AUTOMATED 265 10^3/uL (150-450); RED BLOOD COUNT 5.32 10^6/uL (4.00-5.40); RED CELL DISTRIBUTION WIDTH 12.7 % (11.5-14.5)
[2017-08-15 12:24] LABS: ALBUMIN 3.9 GM/DL (3.2-5.2); ALKALINE PHOSPHATASE 78 U/L (45-117); ALT/SGPT 22 U/L (12-78); ANION GAP 6 MEQ/L (8-16); AST/SGOT 18 U/L (7-37); BILIRUBIN,TOTAL 0.4 MG/DL (0.2-1.0); BLOOD UREA NITROGEN 19 MG/DL (7-18); CALCIUM LEVEL 9.3 MG/DL (8.8-10.2); CARBON DIOXIDE LEVEL 33 MEQ/L (21-32); CHLORIDE LEVEL 104 MEQ/L (98-107); CHOLESTEROL LEVEL 252 MG/DL (<200); CHOLESTEROL RISK RATIO 3.189 (<5); CREATININE FOR GFR 0.79 MG/DL (0.55-1.30); GLOMERULAR FILTRATION RATE > 60.0 (>45); GLUCOSE, FASTING 96 MG/DL (70-100); HDL CHOLESTEROL 79 MG/DL (>40); LDL CHOLESTEROL 146.6 MG/DL (<100); NON-HDL-C 173 MG/DL; POTASSIUM SERUM 4.3 MEQ/L (3.5-5.1); SODIUM LEVEL 143 MEQ/L (136-145); TOTAL PROTEIN 6.9 GM/DL (6.4-8.2); TRIGLYCERIDES LEVEL 132 MG/DL (<150)
== END ==
LOC: M LABDRAW1 11:32
DX: E78.4 Other hyperlipidemia (principal); I10 Essential (primary) hypertension
CPT/HCPCS: 80053

== ENCOUNTER → 2017-09-18 | Outpatient (CLI) | payer BC ==
[~2017-09-18] MED LIST changes: +TRIAMCINOLONE ACETONIDE SUSP 40 MG/ML VIAL (J3301) As Ordered
== END ==
LOC: M PAIN 13:00
DX: G89.29 Other chronic pain (principal); M47.817 Spondylosis without myelopathy or radiculopathy, lumbosacral region; I10 Essential (primary) hypertension; Z79.891 Long term (current) use of opiate analgesic; Z79.899 Other long term (current) drug therapy; J30.9 Allergic rhinitis, unspecified; Z88.8 Allergy status to other drugs, medicaments and biological substances
CPT/HCPCS: J3301

== ENCOUNTER → 2017-10-01 | Outpatient (CLI) | payer BC | LOC: M WHC 14:32 | DX: Z12.31 Encounter for screening mammogram for malignant neoplasm of breast (principal); Z78.0 Asymptomatic menopausal state; Z80.3 Family history of malignant neoplasm of breast ==

== ENCOUNTER → 2017-10-01 | Outpatient (REF) | payer BC ==
[2017-10-04 14:10] LABS: HPV HYBRID CAPTURE II Negative (Negative)
== END ==
LOC: M SFHCWAGY 16:13
DX: Z12.4 Encounter for screening for malignant neoplasm of cervix (principal)
CPT/HCPCS: G0123

== ENCOUNTER → 2017-10-14 | Outpatient (CLI) | payer BC | LOC: M PAIN 10:15 | DX: M54.16 Radiculopathy, lumbar region (principal); M47.816 Spondylosis without myelopathy or radiculopathy, lumbar region; M47.817 Spondylosis without myelopathy or radiculopathy, lumbosacral region; I10 Essential (primary) hypertension; J30.89 Other allergic rhinitis; M19.90 Unspecified osteoarthritis, unspecified site; R00.8 Other abnormalities of heart beat; Z79.899 Other long term (current) drug therapy; Z88.1 Allergy status to other antibiotic agents; Z88.8 Allergy status to other drugs, medicaments and biological substances | CPT/HCPCS: G0463 ==

== ENCOUNTER → 2017-11-26 | Outpatient (CLI) | payer BC | LOC: M PAIN 15:15 | DX: M54.16 Radiculopathy, lumbar region (principal); M47.816 Spondylosis without myelopathy or radiculopathy, lumbar region; M47.817 Spondylosis without myelopathy or radiculopathy, lumbosacral region; I10 Essential (primary) hypertension; J30.2 Other seasonal allergic rhinitis; M19.90 Unspecified osteoarthritis, unspecified site; R00.8 Other abnormalities of heart beat; Z79.899 Other long term (current) drug therapy; Z88.8 Allergy status to other drugs, medicaments and biological substances | CPT/HCPCS: G0463 ==

== ENCOUNTER → 2018-02-12 | Outpatient (REF) | payer BC ==
[2018-02-12 12:22] LABS: BASO % 0.5 % (0.0-1.0); EOS # 0.4 10^3/uL (0.0-0.50); EOS % 6.9 % (0.0-3.0); HEMATOCRIT 45.5 % (36.0-47.0); HEMOGLOBIN 15.4 g/dl (12.0-15.5); IMMATURE GRANULOCYTE % 0.3 % (0-3.0); LYMPH # 1.6 10^3/uL (1.5-4.5); LYMPH % 26.4 % (24.0-44.0); MEAN CORPUSCULAR HEMOGLOBIN 30.3 pg (27.0-33.0); MEAN CORPUSCULAR HGB CONC 33.8 g/dl (32.0-36.5); MEAN CORPUSCULAR VOLUME 89.4 fl (80.0-96.0); MONO # 0.5 10^3/uL (0.0-0.8); MONO % 8.4 % (0.0-5.0); NEUTROPHILS # 3.6 10^3/uL (1.8-7.7); NEUTROPHILS % 57.5 % (36.0-66.0); PLATELET COUNT, AUTOMATED 262 10^3/uL (150-450); RED BLOOD COUNT 5.09 10^6/uL (4.00-5.40); RED CELL DISTRIBUTION WIDTH 12.4 % (11.5-14.5); WHITE BLOOD COUNT 6.2 10^3/uL (4.0-10.0)
[2018-02-12 12:56] LABS: ALBUMIN 3.7 GM/DL (3.2-5.2); ALBUMIN/GLOBULIN RATIO 1.12 (1.00-1.93); ALKALINE PHOSPHATASE 71 U/L (45-117); ALT/SGPT 27 U/L (12-78); ANION GAP 8 MEQ/L (8-16); AST/SGOT 14 U/L (7-37); BILIRUBIN,TOTAL 0.4 MG/DL (0.2-1.0); BLOOD UREA NITROGEN 19 MG/DL (7-18); CALCIUM LEVEL 9.2 MG/DL (8.8-10.2); CARBON DIOXIDE LEVEL 30 MEQ/L (21-32); CHLORIDE LEVEL 107 MEQ/L (98-107); CHOLESTEROL LEVEL 235 MG/DL (<200); CHOLESTEROL RISK RATIO 3.092 (<5); CREATININE FOR GFR 0.78 MG/DL (0.55-1.30); GLOMERULAR FILTRATION RATE > 60.0 (>45); GLUCOSE, FASTING 98 MG/DL (70-100); HDL CHOLESTEROL 76 MG/DL (>40); LDL CHOLESTEROL 125.2 MG/DL (<100); NON-HDL-C 159 MG/DL; POTASSIUM SERUM 4.4 MEQ/L (3.5-5.1); SODIUM LEVEL 145 MEQ/L (136-145); TRIGLYCERIDES LEVEL 169 MG/DL (<150)
== END ==
LOC: M LABDRAW1 11:57
DX: I10 Essential (primary) hypertension (principal); E78.4 Other hyperlipidemia
CPT/HCPCS: 80053

== ENCOUNTER → 2018-02-16 | Outpatient (CLI) | payer BC | LOC: M PAIN 15:15 | DX: M54.16 Radiculopathy, lumbar region (principal); M47.816 Spondylosis without myelopathy or radiculopathy, lumbar region; M47.817 Spondylosis without myelopathy or radiculopathy, lumbosacral region; I10 Essential (primary) hypertension; J30.2 Other seasonal allergic rhinitis; H91.93 Unspecified hearing loss, bilateral; R00.8 Other abnormalities of heart beat; M19.90 Unspecified osteoarthritis, unspecified site; Z79.891 Long term (current) use of opiate analgesic; Z79.899 Other long term (current) drug therapy; Z88.1 Allergy status to other antibiotic agents; Z88.8 Allergy status to other drugs, medicaments and biological substances | CPT/HCPCS: G0463 ==

== ENCOUNTER → 2018-03-27 | Outpatient (CLI) | payer BC ==
[~2018-03-27] MED LIST changes: -BUPIVACAINE HCL 0.25% 30 ML VIAL As Ordered; -ISOVUE-M 300 61% 15ML VIAL (Q9967) As Ordered; -LIDOCAINE 1% SDV INJ 30 ML VIAL As Ordered; +PROHANCE 279.3MG/ML 15ML VIAL (A9576) As Ordered; +PROHANCE 279.3MG/ML 5ML VIAL (A9576) As Ordered; -TRIAMCINOLONE ACETONIDE SUSP 40 MG/ML VIAL (J3301) As Ordered
== END ==
LOC: M RAD 10:14
DX: Z80.3 Family history of malignant neoplasm of breast (principal)
CPT/HCPCS: A9576

== ENCOUNTER → 2018-05-18 | Outpatient (CLI) | payer BC | LOC: M PAIN 10:00 | DX: M70.62 Trochanteric bursitis, left hip (principal); M47.816 Spondylosis without myelopathy or radiculopathy, lumbar region; M47.817 Spondylosis without myelopathy or radiculopathy, lumbosacral region; M70.61 Trochanteric bursitis, right hip; I10 Essential (primary) hypertension; J30.2 Other seasonal allergic rhinitis; M19.90 Unspecified osteoarthritis, unspecified site; Z79.899 Other long term (current) drug therapy; Z88.1 Allergy status to other antibiotic agents; Z88.8 Allergy status to other drugs, medicaments and biological substances | CPT/HCPCS: G0463 ==

== ENCOUNTER → 2018-09-09 | Outpatient (REF) | payer BC ==
[~2018-09-09] MED LIST changes: +ACET500T15 PO; +HYDR12CA PO; +HYDR25TAB PO; +NAPR-855 PO; +OXYC-517 PO; -PROHANCE 279.3MG/ML 15ML VIAL (A9576) As Ordered; -PROHANCE 279.3MG/ML 5ML VIAL (A9576) As Ordered; +ULTR37.54 PO; +ZANA4TAB PO
[2018-09-09 11:54] LABS: BASO % 0.8 % (0.0-1.0); EOS # 0.4 10^3/uL (0.0-0.50); EOS % 7.2 % (0.0-3.0); HEMATOCRIT 44.4 % (36.0-47.0); HEMOGLOBIN 14.9 g/dl (12.0-15.5); LYMPH # 1.7 10^3/uL (1.5-4.5); LYMPH % 33.7 % (24.0-44.0); MEAN CORPUSCULAR HEMOGLOBIN 29.3 pg (27.0-33.0); MEAN CORPUSCULAR HGB CONC 33.6 g/dl (32.0-36.5); MEAN CORPUSCULAR VOLUME 87.2 fl (80.0-96.0); MONO # 0.5 10^3/uL (0.0-0.8); MONO % 10.3 % (0.0-5.0); NEUTROPHILS # 2.5 10^3/uL (1.8-7.7); NEUTROPHILS % 47.8 % (36.0-66.0); PLATELET COUNT, AUTOMATED 284 10^3/uL (150-450); RED BLOOD COUNT 5.09 10^6/uL (4.00-5.40); WHITE BLOOD COUNT 5.2 10^3/uL (4.0-10.0)
[2018-09-09 12:19] LABS: ALT/SGPT 27 U/L (12-78); BILIRUBIN,TOTAL 0.6 MG/DL (0.2-1.0); BLOOD UREA NITROGEN 20 MG/DL (7-18); CALCIUM LEVEL 9.4 MG/DL (8.8-10.2); CARBON DIOXIDE LEVEL 30 MEQ/L (21-32); CHLORIDE LEVEL 106 MEQ/L (98-107); CHOLESTEROL LEVEL 277 MG/DL (<200); CHOLESTEROL RISK RATIO 3.378 (<5); CREATININE FOR GFR 0.75 MG/DL (0.55-1.30); GLOMERULAR FILTRATION RATE > 60.0 (>45); GLUCOSE, FASTING 100 MG/DL (70-100); HDL CHOLESTEROL 82 MG/DL (>40); LDL CHOLESTEROL 175 MG/DL (<100); NON-HDL-C 195 MG/DL; POTASSIUM SERUM 4.4 MEQ/L (3.5-5.1); SODIUM LEVEL 141 MEQ/L (136-145); TOTAL PROTEIN 7.3 GM/DL (6.4-8.2); TRIGLYCERIDES LEVEL 100 MG/DL (<150)
== END ==
LOC: M LABDRAW1 11:25
PROVIDERS: ATTEND Nurse Practitioner Family
DX: I10 Essential (primary) hypertension (principal); E78.49 Other hyperlipidemia

== ENCOUNTER → 2018-10-07 | Outpatient (CLI) | payer BC ==
--- NOTE | 2018-10-07 13:43 | REPMRS ---
Patient History The patient states she has not had a clinical breast exam in over a year. Patient is postmenopausal. Family history of ovarian cancer at age 75 in maternal grandmother, breast cancer at age 60 in maternal aunt, breast cancer at age 56 in sister, breast cancer at age 65 in maternal aunt, colorectal cancer at age 50 in paternal grandmother, prostate cancer at age 74 in paternal uncle, breast cancer at age 40 in maternal cousin. No Hormone Replacement Therapy 3D TOMOSYNTHESIS WAS PERFORMED. Digital Woman Screen Mammo: October 07, 2018 - Exam #: [id number] Bilateral CC and MLO view(s) were taken. Technologist: Flakita Patel, Technologist Prior study comparison: October 01, 2017, digital woman screen mammo performed at [facility]. April 22, 2016, digital woman screen mammo performed at [facility]. FINDINGS: The breast tissue is heterogeneously dense. This may lower the sensitivity of mammography. There has been no change in the appearance of the mammogram from the prior studies. There is a moderate amount of residual fibroglandular tissue which is fairly symmetric. There is no interval development of dominant mass, areas of architectural distortion, or clustered microcalcification typical of malignancy. Assessment: BI-RADS/ACR category 1 mammogram. Negative Mammogram. Recommendation Routine screening mammogram in 1 year (for women over age 40). This mammogram was interpreted with the aid of an FDA-approved computer-aided dectection system. THE LIFETIME RISK OF BREAST CANCER IS 24.4%, THEREFORE ANNUAL SUPPLEMENTAL SCREENING MRI OF THE BREASTS IS RECOMMENDED. Electronically Signed By: Raymundo Scott MD 10/07/18 1459
== END ==
LOC: M WHC 10:51
PROVIDERS: ATTEND Nurse Practitioner Family
DX: Z12.31 Encounter for screening mammogram for malignant neoplasm of breast (principal); Z80.3 Family history of malignant neoplasm of breast; Z80.41 Family history of malignant neoplasm of ovary; Z80.0 Family history of malignant neoplasm of digestive organs; Z80.42 Family history of malignant neoplasm of prostate

== ENCOUNTER → 2019-01-19 | Outpatient (REF) | payer BC ==
[~2019-01-19] MED LIST changes: +HYDR-2541 PO; -HYDR25TAB PO
[2019-01-19 13:08] LABS: ALBUMIN 3.7 GM/DL (3.2-5.2); ALT/SGPT 28 U/L (12-78); BILIRUBIN,TOTAL 0.6 MG/DL (0.2-1.0); BLOOD UREA NITROGEN 17 MG/DL (7-18); CALCIUM LEVEL 8.7 MG/DL (8.8-10.2); CARBON DIOXIDE LEVEL 29 MEQ/L (21-32); CHLORIDE LEVEL 108 MEQ/L (98-107); CHOLESTEROL LEVEL 165 MG/DL (<200); CHOLESTEROL RISK RATIO 2.426 (<5); CREATININE FOR GFR 0.76 MG/DL (0.55-1.30); GLOMERULAR FILTRATION RATE > 60.0 (>45); GLUCOSE, FASTING 96 MG/DL (70-100); HDL CHOLESTEROL 68 MG/DL (>40); LDL CHOLESTEROL 73 MG/DL (<100); NON-HDL-C 97 MG/DL; POTASSIUM SERUM 4.1 MEQ/L (3.5-5.1); SODIUM LEVEL 143 MEQ/L (136-145); TOTAL PROTEIN 6.6 GM/DL (6.4-8.2); TRIGLYCERIDES LEVEL 119 MG/DL (<150)
== END ==
LOC: M LABDRAW1 11:52
PROVIDERS: ATTEND Nurse Practitioner Family
DX: I10 Essential (primary) hypertension (principal); E78.49 Other hyperlipidemia

== ENCOUNTER → 2019-02-24 | Outpatient (CLI) | payer BC ==
--- NOTE | 2019-02-25 23:39 | ECWPNPC ---
PATIENT NAME: SHITAL HA : 1955 GENDER: FEMALE VISIT DATE: 02/24/2019 DISCHARGE DATE: 02/24/19 1142 VISIT LOCKED DATE TIME: PHYSICIAN: CAM QUINN RESOURCE: CAM QUINN REASON FOR APPOINTMENT 1. LOW BACK-MED CHECK HISTORY OF PRESENT ILLNESS HISTORY OF PRESENT ILLNESS: PAIN THE PATIENT DESCRIBES THE PAIN... 63 YEAR OLD FEMALE IN FOR CHRONIC PAIN FOLLOW UP. SHE RATES HER PAIN AT A /10 AND DESCRIBES IT . SHE FEELS THE MEDICATIONS ARE WORKING WELL AND DENIES MED SIDE EFFECTS. FALL RISK SCREENING: SCREENING :NO FALLS REPORTED IN THE LAST YEAR CURRENT MEDICATIONS TAKING MAG-200 200 MG TABLET 2TAB ORALLY AT BEDTIME TAKING LISINOPRIL 10 MG TABLET 1 TABLET ORALLY ONCE A DAY TAKING TYLENOL 8 HOUR 650 MG TABLET EXTENDED RELEASE 2 TABLETS NEEDED ORALLY EVERY 8 HRS TAKING MULTI COMPLETE - CAPSULE 1 CAP ORALLY DAILY TAKING MAALOX 600 MG TABLET CHEWABLE ORALLY TWICE A DAY NEEDED TAKING CLOBETASOL PROPIONATE 0.05 % CREAM 1 APPLICATION TO AFFECTED AREA EXTERNALLY TO PERINEUM TWICE WEEK TO PERINEUM, AFTER 12 WEEKS MAY DECREASE TO PRN DOSING TAKING PERCOCET 5-325 MG TABLET 1 TABLET NEEDED ORALLY EVERY 6 HRS PRN MDD4 TAKING TRAMADOL HCL 50 MG TABLET 1 TABLET NEEDED ORALLY EVERY 6 HRS PRN PAIN MDD=3 TAKING GABAPENTIN 300 MG CAPSULE 1 CAPSULE ORALLY THREE TIMES A DAY FOR PAIN TAKING ATORVASTATIN CALCIUM 10 MG TABLET 1 TABLET ORALLY ONCE A DAY TAKING FISH OIL 1200 MG CAPSULE 1 CAPSULE ORALLY ONCE A DAY TAKING VITAMIN B COMPLEX-C - CAPSULE DIRECTED ORALLY TAKING [id number] - CAPSULE DIRECTED ORALLY NOT-TAKING BENADRYL ALLERGY 25 MG TABLET 2 TABLET NEEDED ORALLY EVERY 8 HRS NOT-TAKING IBUPROFEN 400 MG TABLET 1 TABLET ORALLY FOUR TIMES DAILY PRN PAIN TAKE WITH FOOD NOT-TAKING TIZANIDINE HCL 4 MG TABLET 1 TABLET NEEDED ORALLY BEFORE BEDTIME NOT-TAKING LIDODERM 5 % PATCH 1 PATCH TO SKIN REMOVE AFTER 12 HOURS EXTERNALLY ONCE A DAY PRN MEDICATION LIST REVIEWED AND RECONCILED WITH THE PATIENT PAST MEDICAL HISTORY HTN SEASONAL ALLERGIES-YEAR ROUND BIGEMINY HEARING LOSS WITH GEOVANY HEARING AIDES/READS LIPS ARTHRITIS CARPAL TUNNEL LEFT WRIST ALLERGIES MIDAZOLAM HCL: NAUSEA/VOMITING - SIDE EFFECTS AUGMENTIN: DIARRHEA - SIDE EFFECTS SURGICAL HISTORY C SECTION X 2 1983 & 1985 CARPAL TUNNEL R 2008 TONSILLECTOMY 1961 COLONOSCOPY X2 OPERATION ON L5S1.RADIO FREQUENCY NERVE ABLATION.GETS DONE EVERY 6 MONTHS 2017 & 09/17/17 FAMILY HISTORY FATHER: SKIN CANCER AT AGE 76, DIAGNOSED WITH HYPERTENSION MOTHER: ALIVE, LEUKEMIA, DIABETES, HYPERTENSION SIBLINGS: ALIVE, BREAST CANCER PATERNAL GRAND MOTHER: COLON CANCER AT AGE 50 MATERNAL GRAND MOTHER: OVARIAN CANCER, DX AT AGE 75 PATERNAL UNCLE: PROSTATE CA AT AGE 74 MATERNAL AUNTS X 2 WITH BREAST CA, DX AT AGE 60 AND 65. ONE MATERNAL COUSIN DX AT AGE 40 [place] BREAST CANCER. SISTER RECENTLY DX WITH AGGRESSIVE FORM OF BREAST CA AT AGE 56. SOCIAL HISTORY GENERAL: TOBACCO USE ARE YOU A:NONSMOKER OTHERS AT HOME: SPOUSE, 2 DOGS, 3 HORSES. 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 LANGUAGE LANGUAGES SPOKEN:BELIZEAN DOMESTIC VIOLENCE DO YOU FEEL SAFE IN YOUR ENVIRONMENT?YES RECREATIONAL DRUG USE DENIES. EXERCISE: NO REGULAR EXERCISE DUE TO PAIN IN LEFT LEG. LEARNING BARRIERS / SPECIAL NEEDS BARRIERS TO LEARNING?NO HEARING IMPAIRED?YES :HEARING AIDES LEFT EAR.SLIGHT LOSS IN RIGHT VISION IMPAIRED?YES :CORRECTIVE LENSES COGNITIVELY IMPAIRED?NO READINESS TO LEARN?YES LEARNING PREFERENCES?NO LEARNING CAPABILITIES PRESENT?YES EMOTIONAL BARRIERS?NO SPECIAL DEVICES?NO PAIN CLINIC PFS, CLERGY, PUBLIC HEALTH REFERRALS PFS REFERRAL NEEDED?NO CLERGY REFERRAL NEEDED?NO PUBLIC HEALTH REFERRAL NEEDED?NO WAS THE PROVIDER NOTIFIED OF ANY PERTINENT INFO?YES HAS THE PATIENT BEEN EDUCATED REGARDING HIS/HER PLAN OF CARE?YES HAS THE PATIENT BEEN EDUCATED REGARDING PAIN, THE RISK FOR PAIN, THE IMPORTANCE OF EFFECTIVE PAIN MANAGEMENT, AND THE PAIN ASSESSMENT PROCESS?YES LATEX QUESTIONNAIRE LATEX ALLERGY : HAVE YOU EVER DEVELOPED ANY TYPE OF REACTION AFTER HANDLING LATEX PRODUCTS SUCH RUBBER GLOVES, CONDOMS, DIAPHRAGMS, BALLOONS, SOCKS, OR UNDERWEAR?NO LATEX ALLERGY : HAVE YOU EVER DEVELOPED ANY TYPE OF REACTION DURING OR AFTER DENTAL APPOINTMENT, VAGINAL/RECTAL EXAMINATION, SURGICAL PROCEDURE, OR ANY OTHER EXPOSURE?NO LATEX RISK : HAVE YOU EVER HAD ANY DIFFICULTY BREATHING OR HIVES AFTER EATING OR HANDLING ANY FRUITS, OR VEGETABLES; SUCH KIWI, BANANAS, STONE FRUITS, OR CHESTNUTSNO LATEX RISK : DO YOU HAVE A PREVIOUS PERSONAL HISTORY OF MORE THAN NINE SURGERIES, SPINA BIFIDA, OR REPEATED CATHERIZATIONS? NO LATEX RISK : ARE YOU FREQUENTLY EXPOSED TO LATEX PRODUCTS IN YOUR OCCUPATION?NO DATE ASKED : 02/24/2019 CAFFEINE 1/DAY. ADVANCE DIRECTIVE ADVANCE DIRECTIVE DISCUSSED WITH PATIENT:YES PT DECLINES ASSISTANCE OR INFORMATION AT THIS TIME ANABAPTIST [id number] BAPTISM MARITAL STATUS: . ALCOHOL SCREENING DID YOU HAVE A DRINK CONTAINING ALCOHOL IN THE PAST YEAR?YES HOW OFTEN DID YOU HAVE A DRINK CONTAINING ALCOHOL IN THE PAST YEAR?MONTHLY OR LESS (1 POINT) HOW MANY DRINKS DID YOU HAVE ON A TYPICAL DAY WHEN YOU WERE DRINKING IN THE PAST YEAR?1 OR 2 (0 POINTS) HOW OFTEN DID YOU HAVE SIX OR MORE DRINKS ON ONE OCCASION IN THE PAST YEAR?NEVER (0 POINTS) POINTS1 INTERPRETATIONNEGATIVE OCCUPATION: PHARMACIST AT [employer]. SEXUAL HX HAD SEX IN THE LAST 12 MONTHS (VAGINAL, ORAL, OR ANAL)?NO HAVE YOU EVER HAD AN STD?NO LMP:2011 RETIRED / NO BACK PAIN NOW. HOSPITALIZATION/MAJOR DIAGNOSTIC PROCEDURE BACK PAIN 01/2016 REVIEW OF SYSTEMS REVIEWED BY: PROVIDER: TETO LOVETT-Gil . CONSTITUTIONAL: ANY CHANGE IN YOUR MEDICAL CONDITION? NO . CHILLS NO . FEVER NO . INFECTION: DO YOU HAVE NEW INFECTIONS? NO . DO YOU HAVE HISTORY OF MRSA? NO . MUSCULOSKELETAL: ANY NEW PATTERNS OF PAIN OR NUMBNESS? NO . GASTROENTEROLOGY: ANY NEW CHANGE IN BOWEL CONTROL? NO . GENITOURINARY: ANY NEW CHANGE IN BLADDER CONTROL? NO . IS THERE A CHANCE YOU COULD BE ? NO . HEMATOLOGY/LYMPH: DO YOU TAKE ANY BLOOD THINNERS? (FOR EXAMPLE- COUMADIN, PLAVIX, AGGRENOX, PLATEL, PRADAXA, OR XARELTO) NO . WHEN WAS YOUR LAST DOSE? DATE: TIME: . NEUROLOGY: HAVE YOU FALLEN IN THE PAST 12 MONTHS? NO . ANY NEW EXTREMITY NUMBNESS OR WEAKNESS? NO . CARDIOLOGY: DO YOU HAVE A PACEMAKER OR DEFIBRILLATOR? NO . RESPIRATORY: HAVE YOU BEEN SICK IN THE PAST WEEK? NO . FEVER NO . FLU LIKE SYMPTOMS? NO . COUGH NO . INTEGUMENTARY: DO YOU HAVE ANY RASHES OR OPEN SORES? NO . ALLERGIC/IMMUNO: ARE YOU ALLERGIC TO IV DYE? NO . ANY NEW ALLERGIES? NO . PSYCHIATRIC: DO YOU HAVE THOUGHTS OF HURTING YOURSELF OR SOMEONE ELSE? NO . ARE YOU ABUSED, NEGLECTED, OR IN AN UNSAFE ENVIRONMENT? NO . ENDOCRINOLOGY: ARE YOU DIABETIC? NO . OTHER: DO YOU NEED ANY PRESCRIPTIONS? YE, GABAPENTIN, TRAMADOL . IF YES, PLEASE LIST: ____ . ANY NEW PROBLEMS WITH YOUR MEDICATIONS? NO . WHEN DID YOU LAST EAT? ____ . WHEN DID YOU LAST DRINK? ____ . WHAT DID YOU LAST DRINK? ____ . NAME OF PERSON DRIVING YOU HOME? ____ . DO YOU HAVE ANY OTHER QUESTIONS OR CONCERNS NO . VITAL SIGNS WT 177.6 LBS, HT 65 IN, BMI 29.55 INDEX, BP 130/73 MM HG, HR 69 /MIN, RR 18 /MIN, TEMP 96.7 F, OXYGEN SAT % 96%, SAFE IN ENV? (Y/N) Y, NA INITIALS AW 1034, REVIEWED BY: CORNEL. EXAMINATION GENERAL EXAMINATION: GENERALNO ACUTE DISTRESS, WELL NOURISHED AND HYDRATED. PSYCHAPPROPRIATE MOOD AND AFFECT . LUNGS:CLEAR TO AUSCULTATION BILATERALLY, NO WHEEZES, RHONCHI, RALES. HEART:NO MURMURS, REGULAR RATE AND RHYTHM. ASSESSMENTS SPONDYLOSIS WITHOUT MYELOPATHY OR RADICULOPATHY, LUMBAR REGION - M47.816 (PRIMARY) LUMBAR RADICULOPATHY - M54.16 TROCHANTERIC BURSITIS OF LEFT HIP - M70.62 TREATMENT SPONDYLOSIS WITHOUT MYELOPATHY OR RADICULOPATHY, LUMBAR REGION CLINICAL NOTES: 63 YEAR OLD FEMALE IN FOR CHRONIC PAIN FOLLOW UP. GIVEN PRESENTING SYMPTOMS AND RESULTS OF PHYSICAL EXAMINATION RECOMMENDED CONTINUATION OF CURRENT MEDICATION REGIMEN WITH FOLLOW UP IN 3 MONTHS. PATIENT HAS EXPRESSED UNDERSTANDING OF AND WAS IN AGREEMENT WITH TREATMENT PLAN. GIVEN TIME TO ASK QUESTIONS AND EXPRESS CONCERNS. , ISTOP REGISTRY REVIEWED AND DEMONSTRATES COMPLLIANCE. (REF # [id number] ) BRINGS IN MEDICATIONS WHICH IS APPROPRIATE FOR WHAT WAS DISPENSED. RECENT URINE TOXICOLOGY REVIEWED. NO UNAUTHORIZED MEDICATIONS. NO ILLICIT SUBSTANCES AND PRESCRIBED MEDICATIONS WERE PRESENT. LUMBAR RADICULOPATHY REFILL TRAMADOL HCL TABLET, 50 MG, 1 TABLET NEEDED, ORALLY, DAILY PRN PAIN MDD=1 REFILL 90 DAYS CATEGORY D CHRONIC PAIN [place], 30 DAY(S), 90 TROCHANTERIC BURSITIS OF LEFT HIP CONTINUE GABAPENTIN CAPSULE, 300 MG, 1 CAPSULE, ORALLY, THREE TIMES A DAY FOR PAIN, 30 DAYS, 90, REFILLS 1 PROCEDURE CODES FA211 ESTABILISHED PATIENT [facility] CHARGE DISPOSITION & COMMUNICATION FOLLOW UP 3 MONTHS (REASON: CHRONIC PAIN ) ELECTRONICALLY SIGNED BY BONY TELLEZ ON 02/25/2019 AT 12:42 PM EDT DISCLAIMER : THIS IS A VISIT SUMMARY EXTRACTED FROM THE [employer] CHART. IT IS NOT A COPY OF THE [employer] PROGRESS NOTE. MAGI
== END ==
LOC: M PAIN 10:30
PROVIDERS: ATTEND Family Medicine
DX: M47.816 Spondylosis without myelopathy or radiculopathy, lumbar region (principal); M54.16 Radiculopathy, lumbar region; M70.62 Trochanteric bursitis, left hip; G89.29 Other chronic pain; I10 Essential (primary) hypertension; M19.90 Unspecified osteoarthritis, unspecified site; Z88.1 Allergy status to other antibiotic agents; Z88.8 Allergy status to other drugs, medicaments and biological substances; Z79.899 Other long term (current) drug therapy

== ENCOUNTER → 2019-03-29 | Outpatient (REF) | payer BC ==
[2019-03-29 13:24] LABS: BASO % 0.6 % (0.0-1.0); EOS # 0.3 10^3/uL (0.0-0.5); EOS % 6.8 % (0.0-3.0); HEMATOCRIT 47.1 % (36.0-47.0); HEMOGLOBIN 15.7 g/dl (12.0-15.5); LYMPH # 1.5 10^3/uL (1.5-5.0); LYMPH % 29.8 % (24.0-44.0); MEAN CORPUSCULAR HEMOGLOBIN 30.7 pg (27.0-33.0); MEAN CORPUSCULAR HGB CONC 33.3 g/dl (32.0-36.5); MONO # 0.5 10^3/uL (0.0-0.8); MONO % 9.5 % (0.0-5.0); NEUTROPHILS # 2.7 10^3/uL (1.5-8.5); NEUTROPHILS % 53.1 % (36.0-66.0); PLATELET COUNT, AUTOMATED 274 10^3/uL (150-450); RED BLOOD COUNT 5.12 10^6/uL (4.00-5.40)
[2019-03-29 13:49] LABS: ALBUMIN 4.1 GM/DL (3.2-5.2); ALT/SGPT 32 U/L (12-78); BILIRUBIN,TOTAL 0.5 MG/DL (0.2-1.0); BLOOD UREA NITROGEN 19 MG/DL (7-18); CALCIUM LEVEL 9.5 MG/DL (8.8-10.2); CARBON DIOXIDE LEVEL 30 MEQ/L (21-32); CHLORIDE LEVEL 103 MEQ/L (98-107); CHOLESTEROL LEVEL 192 MG/DL (<200); CHOLESTEROL RISK RATIO 2.285 (<5); CREATININE FOR GFR 0.79 MG/DL (0.55-1.30); GLOMERULAR FILTRATION RATE > 60.0 (>45); GLUCOSE, FASTING 98 MG/DL (70-100); HDL CHOLESTEROL 84 MG/DL (>40); LDL CHOLESTEROL 86 MG/DL (<100); NON-HDL-C 108 MG/DL; SODIUM LEVEL 141 MEQ/L (136-145); TOTAL PROTEIN 7.1 GM/DL (6.4-8.2); TRIGLYCERIDES LEVEL 109 MG/DL (<150)
== END ==
LOC: M LABDRAW1 11:51
PROVIDERS: ATTEND Nurse Practitioner Family
DX: I10 Essential (primary) hypertension (principal); E78.49 Other hyperlipidemia

== ENCOUNTER → 2019-04-08 | Outpatient (CLI) | payer BC ==
[~2019-04-08] MED LIST changes: +PROHANCE 279.3MG/ML 15ML VIAL (A9576) As Ordered ONE; +PROHANCE 279.3MG/ML 5ML VIAL (A9576) As Ordered ONE
--- NOTE | 2019-04-08 12:50 | REP ---
MRI BREASTS WITH AND WITHOUT CONTRAST: Family history of breast cancer in sister and two maternal aunts. [facility] lifetime risk of breast cancer 24.4%. Comparison mammogram 10/07/2018 and MRI breasts 03/27/2018. TECHNIQUE: Multiple sequences obtained in the axial, coronal and sagittal planes prior to and following the intravenous administration of 15.____ mL of ProHance. Images are evaluated in the disco volante software including axial dynamic T1 fat sat post gadolinium imaging, CAD images, color overlay images, subtraction images and MIP reconstruction images. There is moderate fibroglandular tissue present. Minimal background parenchymal enhancement is seen. No suspicious enhancing mass is seen. No morphologic abnormality is seen. No axillary adenopathy is seen. There is no significant change when compared to prior MRI. IMPRESSION: BIRADS category 1 negative bilateral breast MRI. No mass or morphologic abnormality. No change since the prior study. Yearly supplemental screening MRI of the breast is recommended for patients with lifetime risk of breast cancer of 20% or greater. Electronically Signed by Raymundo Scott MD 04/08/2019 01:37 P
== END ==
LOC: M RAD 09:15
PROVIDERS: ATTEND Nurse Practitioner Women's Health
DX: Z12.31 Encounter for screening mammogram for malignant neoplasm of breast (principal); Z80.3 Family history of malignant neoplasm of breast
CPT/HCPCS: A9576; C8908

== ENCOUNTER → 2019-05-27 | Outpatient (CLI) | payer BC ==
[~2019-05-27] MED LIST changes: -PROHANCE 279.3MG/ML 15ML VIAL (A9576) As Ordered ONE; -PROHANCE 279.3MG/ML 5ML VIAL (A9576) As Ordered ONE
--- NOTE | 2019-07-17 02:21 | ECWPNPC ---
PATIENT NAME: SHITAL HA : 1955 GENDER: FEMALE VISIT DATE: 05/27/2019 DISCHARGE DATE: 05/27/19 1157 VISIT LOCKED DATE TIME: PHYSICIAN: CAM QUINN RESOURCE: CAM QUINN REASON FOR APPOINTMENT 1. 3 MONTHS CHRONIC PAIN HISTORY OF PRESENT ILLNESS HISTORY OF PRESENT ILLNESS: PAIN THE PATIENT DESCRIBES THE PAIN... 63-YEAR-OLD FEMALE IN FOR CHRONIC PAIN FOLLOW-UP. SHE RATES HER PAIN CURRENTLY AT A 1 OUT OF 10 AND DESCRIBES IT BURNING. SHE FEELS THE MEDICATIONS ARE WORKING WELL AND DENIES MED SIDE EFFECTS AT THIS TIME. FALL RISK SCREENING: SCREENING :NO FALLS REPORTED IN THE LAST YEAR CURRENT MEDICATIONS TAKING MAG-200 200 MG TABLET 2TAB ORALLY AT BEDTIME TAKING LISINOPRIL 10 MG TABLET 1 TABLET ORALLY ONCE A DAY TAKING TYLENOL 8 HOUR 650 MG TABLET EXTENDED RELEASE 2 TABLETS NEEDED ORALLY EVERY 8 HRS TAKING MULTI COMPLETE - CAPSULE 1 CAP ORALLY DAILY TAKING MAALOX 600 MG TABLET CHEWABLE ORALLY TWICE A DAY NEEDED TAKING CLOBETASOL PROPIONATE 0.05 % CREAM 1 APPLICATION TO AFFECTED AREA EXTERNALLY TO PERINEUM TWICE WEEK TO PERINEUM, AFTER 12 WEEKS MAY DECREASE TO PRN DOSING TAKING PERCOCET 5-325 MG TABLET 1 TABLET NEEDED ORALLY EVERY 6 HRS PRN MDD4 TAKING ATORVASTATIN CALCIUM 10 MG TABLET 1 TABLET ORALLY ONCE A DAY TAKING FISH OIL 1200 MG CAPSULE 1 CAPSULE ORALLY ONCE A DAY TAKING VITAMIN B COMPLEX-C - CAPSULE DIRECTED ORALLY TAKING SIHRKI-[id number]-[id number]-HYAL - CAPSULE DIRECTED ORALLY TAKING TRAMADOL HCL 50 MG TABLET 1 TABLET NEEDED ORALLY DAILY PRN PAIN MDD=1 REFILL 90 DAYS CATEGORY D CHRONIC PAIN NYS TAKING GABAPENTIN 300 MG CAPSULE 1 CAPSULE ORALLY THREE TIMES A DAY FOR PAIN TAKING TEMAZEPAM 15 MG CAPSULE 1 CAPSULE AT BEDTIME NEEDED ORALLY ONCE A DAY NOT-TAKING BENADRYL ALLERGY 25 MG TABLET 2 TABLET NEEDED ORALLY EVERY 8 HRS NOT-TAKING IBUPROFEN 400 MG TABLET 1 TABLET ORALLY FOUR TIMES DAILY PRN PAIN TAKE WITH FOOD NOT-TAKING TIZANIDINE HCL 4 MG TABLET 1 TABLET NEEDED ORALLY BEFORE BEDTIME NOT-TAKING LIDODERM 5 % PATCH 1 PATCH TO SKIN REMOVE AFTER 12 HOURS EXTERNALLY ONCE A DAY PRN MEDICATION LIST REVIEWED AND RECONCILED WITH THE PATIENT PAST MEDICAL HISTORY HTN SEASONAL ALLERGIES-YEAR ROUND BIGEMINY HEARING LOSS WITH GEOVANY HEARING AIDES/READS LIPS ARTHRITIS CARPAL TUNNEL LEFT WRIST ALLERGIES AUGMENTIN: DIARRHEA - SIDE EFFECTS SURGICAL HISTORY C SECTION X 2 1983 & 1984 CARPAL TUNNEL R 2008 TONSILLECTOMY 196 COLONOSCOPY X2 OPERATION ON L5S1.RADIO FREQUENCY NERVE ABLATION.GETS DONE EVERY 6 MONTHS 2016 & 09/17/17 LEFT CARPAL TUNNEL REPAIR 04/2019 FAMILY HISTORY FATHER: SKIN CANCER AT AGE 76, DIAGNOSED WITH HYPERTENSION MOTHER: ALIVE, LEUKEMIA, DIABETES, HYPERTENSION SIBLINGS: ALIVE, BREAST CANCER PATERNAL GRAND MOTHER: COLON CANCER AT AGE 50 MATERNAL GRAND MOTHER: OVARIAN CANCER, DX AT AGE 75 PATERNAL UNCLE: PROSTATE CA AT AGE 74 MATERNAL AUNTS X 2 WITH BREAST CA, DX AT AGE 60 AND 65. ONE MATERNAL COUSIN DX AT AGE 40 WITIH BREAST CANCER. SISTER RECENTLY DX WITH AGGRESSIVE FORM OF BREAST CA AT AGE 56. SOCIAL HISTORY GENERAL: TOBACCO USE ARE YOU A:NONSMOKER OTHERS AT HOME: SPOUSE, 2 DOGS, 3 HORSES. 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 LANGUAGE LANGUAGES SPOKEN:[place] DOMESTIC VIOLENCE DO YOU FEEL SAFE IN YOUR ENVIRONMENT?YES RECREATIONAL DRUG USE DENIES. EXERCISE: NO REGULAR EXERCISE DUE TO PAIN IN LEFT LEG. LEARNING BARRIERS / SPECIAL NEEDS BARRIERS TO LEARNING?NO HEARING IMPAIRED?YES VISION IMPAIRED?YES COGNITIVELY IMPAIRED?NO :HEARING AIDES LEFT EAR.SLIGHT LOSS IN RIGHT :CORRECTIVE LENSES READINESS TO LEARN?YES LEARNING PREFERENCES?NO LEARNING CAPABILITIES PRESENT?YES EMOTIONAL BARRIERS?NO SPECIAL DEVICES?NO PAIN CLINIC PFS, CLERGY, PUBLIC HEALTH REFERRALS PFS REFERRAL NEEDED?NO CLERGY REFERRAL NEEDED?NO PUBLIC HEALTH REFERRAL NEEDED?NO WAS THE PROVIDER NOTIFIED OF ANY PERTINENT INFO?YES HAS THE PATIENT BEEN EDUCATED REGARDING HIS/HER PLAN OF CARE?YES HAS THE PATIENT BEEN EDUCATED REGARDING PAIN, THE RISK FOR PAIN, THE IMPORTANCE OF EFFECTIVE PAIN MANAGEMENT, AND THE PAIN ASSESSMENT PROCESS?YES LATEX QUESTIONNAIRE LATEX ALLERGY : HAVE YOU EVER DEVELOPED ANY TYPE OF REACTION AFTER HANDLING LATEX PRODUCTS SUCH RUBBER GLOVES, CONDOMS, DIAPHRAGMS, BALLOONS, SOCKS, OR UNDERWEAR?NO LATEX ALLERGY : HAVE YOU EVER DEVELOPED ANY TYPE OF REACTION DURING OR AFTER DENTAL APPOINTMENT, VAGINAL/RECTAL EXAMINATION, SURGICAL PROCEDURE, OR ANY OTHER EXPOSURE?NO LATEX RISK : HAVE YOU EVER HAD ANY DIFFICULTY BREATHING OR HIVES AFTER EATING OR HANDLING ANY FRUITS, OR VEGETABLES; SUCH KIWI, BANANAS, STONE FRUITS, OR CHESTNUTSNO LATEX RISK : DO YOU HAVE A PREVIOUS PERSONAL HISTORY OF MORE THAN NINE SURGERIES, SPINA BIFIDA, OR REPEATED CATHERIZATIONS? NO LATEX RISK : ARE YOU FREQUENTLY EXPOSED TO LATEX PRODUCTS IN YOUR OCCUPATION?NO DATE ASKED : 02/24/2019 CAFFEINE 1/DAY. ADVANCE DIRECTIVE ADVANCE DIRECTIVE DISCUSSED WITH PATIENT:YES PT DECLINES ASSISTANCE OR INFORMATION AT THIS TIME TAOIST [id number] CHURCH MARITAL STATUS: . 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 HOSPITALIZATION/MAJOR DIAGNOSTIC PROCEDURE BACK PAIN 01/2016 REVIEW OF SYSTEMS REVIEWED BY: PROVIDER: TETO LOVETT-Gil . CONSTITUTIONAL: ANY CHANGE IN YOUR MEDICAL CONDITION? NO . CHILLS NO . FEVER NO . INFECTION: DO YOU HAVE NEW INFECTIONS? NO . DO YOU HAVE HISTORY OF MRSA? NO . MUSCULOSKELETAL: ANY NEW PATTERNS OF PAIN OR NUMBNESS? NO . GASTROENTEROLOGY: ANY NEW CHANGE IN BOWEL CONTROL? NO . GENITOURINARY: ANY NEW CHANGE IN BLADDER CONTROL? NO . IS THERE A CHANCE YOU COULD BE ? NO . HEMATOLOGY/LYMPH: DO YOU TAKE ANY BLOOD THINNERS? (FOR EXAMPLE- COUMADIN, PLAVIX, AGGRENOX, PLATEL, PRADAXA, OR XARELTO) NO . WHEN WAS YOUR LAST DOSE? DATE: TIME: . NEUROLOGY: HAVE YOU FALLEN IN THE PAST 12 MONTHS? NO . ANY NEW EXTREMITY NUMBNESS OR WEAKNESS? NO . CARDIOLOGY: DO YOU HAVE A PACEMAKER OR DEFIBRILLATOR? NO . RESPIRATORY: HAVE YOU BEEN SICK IN THE PAST WEEK? NO . FEVER NO . FLU LIKE SYMPTOMS? NO . COUGH NO . INTEGUMENTARY: DO YOU HAVE ANY RASHES OR OPEN SORES? NO . ALLERGIC/IMMUNO: ARE YOU ALLERGIC TO IV DYE? NO . ANY NEW ALLERGIES? NO . PSYCHIATRIC: DO YOU HAVE THOUGHTS OF HURTING YOURSELF OR SOMEONE ELSE? NO . ARE YOU ABUSED, NEGLECTED, OR IN AN UNSAFE ENVIRONMENT? NO . ENDOCRINOLOGY: ARE YOU DIABETIC? NO . OTHER: DO YOU NEED ANY PRESCRIPTIONS? YES . IF YES, PLEASE LIST: ____ON HER LAST FILL OF GABAPENTIN AND TRAMADOL . ANY NEW PROBLEMS WITH YOUR MEDICATIONS? NO . WHEN DID YOU LAST EAT? ____ . WHEN DID YOU LAST DRINK? ____ . WHAT DID YOU LAST DRINK? ____ . NAME OF PERSON DRIVING YOU HOME? ____ . DO YOU HAVE ANY OTHER QUESTIONS OR CONCERNS NO . VITAL SIGNS WT 178.4 LBS, HT 65 IN, BMI 29.68 INDEX, BP 121/78 MM HG, HR 75 /MIN, RR 18 /MIN, TEMP 97.1 F, OXYGEN SAT % 97%, SAFE IN ENV? (Y/N) YES, NA INITIALS AW 1056, REVIEWED BY: PEYTON. EXAMINATION GENERAL EXAMINATION: GENERALNO ACUTE DISTRESS, WELL NOURISHED AND HYDRATED. PSYCHAPPROPRIATE MOOD AND AFFECT . LUNGS:CLEAR TO AUSCULTATION BILATERALLY, NO WHEEZES, RHONCHI, RALES. HEART:NO MURMURS, REGULAR RATE AND RHYTHM. ASSESSMENTS INTERVERTEBRAL DISC DISORDERS WITH RADICULOPATHY, LUMBOSACRAL REGION - M51.17 (PRIMARY) TREATMENT INTERVERTEBRAL DISC DISORDERS WITH RADICULOPATHY, LUMBOSACRAL REGION CLINICAL NOTES: 63-YEAR-OLD FEMALE IN FOR CHRONIC PAIN FOLLOW-UP. GIVEN PRESENTING SYMPTOMS AND RESULTS PHYSICAL EXAMINATION MEDICATION CONTINUATION OF CURRENT MEDICATION REGIMEN WITH FOLLOW-UP IN 3 MONTHS. PATIENT HAS EXPRESSED UNDERSTANDING OF AND WAS IN AGREEMENT WITH TREATMENT PLAN. GIVEN TIME TO ASK QUESTIONS AND EXPRESS CONCERNS., ISTOP REGISTRY REVIEWED AND DEMONSTRATES COMPLLIANCE. (REF # [id number] ) BRINGS IN MEDICATIONS WHICH IS APPROPRIATE FOR WHAT WAS DISPENSED. RECENT URINE TOXICOLOGY REVIEWED. NO UNAUTHORIZED MEDICATIONS. NO ILLICIT SUBSTANCES AND PRESCRIBED MEDICATIONS WERE PRESENT. PROCEDURE CODES FA211 ESTABILISHED PATIENT [facility] FACILITY CHARGE DISPOSITION & COMMUNICATION FOLLOW UP 3 MONTHS (REASON: CHRONIC PAIN) ELECTRONICALLY SIGNED BY BONY TELLEZ ON 07/16/2019 AT 03:46 PM EST DISCLAIMER : THIS IS A VISIT SUMMARY EXTRACTED FROM THE [employer] CHART. IT IS NOT A COPY OF THE [employer] PROGRESS NOTE. MAGI
== END ==
LOC: M PAIN 10:30
PROVIDERS: ATTEND Family Medicine
DX: M51.17 Intervertebral disc disorders with radiculopathy, lumbosacral region (principal); G89.29 Other chronic pain; I10 Essential (primary) hypertension; Z79.891 Long term (current) use of opiate analgesic; Z79.899 Other long term (current) drug therapy; Z88.1 Allergy status to other antibiotic agents

== ENCOUNTER → 2019-08-26 | Outpatient (CLI) | payer BC ==
--- NOTE | 2019-08-28 05:34 | ECWPNPC ---
PATIENT NAME: SHITAL HA : 1955 GENDER: FEMALE VISIT DATE: 08/26/2019 DISCHARGE DATE: 08/26/19 1054 VISIT LOCKED DATE TIME: PHYSICIAN: CAM QUINN RESOURCE: CAM QUINN REASON FOR APPOINTMENT 1. BCBS-CHRONIC PAIN HISTORY OF PRESENT ILLNESS HISTORY OF PRESENT ILLNESS: PAIN THE PATIENT DESCRIBES THE PAIN... 64-YEAR-OLD FEMALE IN FOR CHRONIC PAIN FOLLOW-UP. SHE RATES HER PAIN CURRENTLY AT A 1 OUT OF 10. SHE FEELS HER MEDICATIONS ARE WORKING WELL. FALL RISK SCREENING: SCREENING :NO FALLS REPORTED IN THE LAST YEAR CURRENT MEDICATIONS TAKING MAG-200 200 MG TABLET 2TAB ORALLY AT BEDTIME TAKING LISINOPRIL 10 MG TABLET 1 TABLET ORALLY ONCE A DAY TAKING TYLENOL 8 HOUR 650 MG TABLET EXTENDED RELEASE 2 TABLETS NEEDED ORALLY EVERY 8 HRS TAKING MULTI COMPLETE - CAPSULE 1 CAP ORALLY DAILY TAKING CLOBETASOL PROPIONATE 0.05 % CREAM 1 APPLICATION TO AFFECTED AREA EXTERNALLY TO PERINEUM TWICE WEEK TO PERINEUM, AFTER 12 WEEKS MAY DECREASE TO PRN DOSING TAKING ATORVASTATIN CALCIUM 10 MG TABLET 1 TABLET ORALLY ONCE A DAY TAKING FISH OIL 1200 MG CAPSULE 1 CAPSULE ORALLY ONCE A DAY TAKING VITAMIN B COMPLEX-C - CAPSULE DIRECTED ORALLY TAKING [id number]-IMPFFE-HYAL - CAPSULE 2 CAPS ORALLY DAILY TAKING TRAMADOL HCL 50 MG TABLET 1 TABLET NEEDED ORALLY DAILY PRN PAIN MDD=1 REFILL 90 DAYS CATEGORY D CHRONIC PAIN NYS TAKING TEMAZEPAM 15 MG CAPSULE 1 CAPSULE AT BEDTIME NEEDED ORALLY ONCE A DAY TAKING GABAPENTIN 300 MG CAPSULE 1 CAPSULE ORALLY THREE TIMES A DAY FOR PAIN NOT-TAKING MAALOX 600 MG TABLET CHEWABLE ORALLY TWICE A DAY NEEDED NOT-TAKING PERCOCET 5-325 MG TABLET 1 TABLET NEEDED ORALLY EVERY 6 HRS PRN MDD4 NOT-TAKING BENADRYL ALLERGY 25 MG TABLET 2 TABLET NEEDED ORALLY EVERY 8 HRS NOT-TAKING IBUPROFEN 400 MG TABLET 1 TABLET ORALLY FOUR TIMES DAILY PRN PAIN TAKE WITH FOOD NOT-TAKING TIZANIDINE HCL 4 MG TABLET 1 TABLET NEEDED ORALLY BEFORE BEDTIME NOT-TAKING LIDODERM 5 % PATCH 1 PATCH TO SKIN REMOVE AFTER 12 HOURS EXTERNALLY ONCE A DAY PRN MEDICATION LIST REVIEWED AND RECONCILED WITH THE PATIENT PAST MEDICAL HISTORY HTN SEASONAL ALLERGIES-YEAR ROUND BIGEMINY HEARING LOSS WITH GEOVANY HEARING AIDES/READS LIPS ARTHRITIS CARPAL TUNNEL LEFT WRIST BACK PAIN ALLERGIES AUGMENTIN: DIARRHEA - SIDE EFFECTS SURGICAL HISTORY C SECTION X 2 1983 & 1984 CARPAL TUNNEL R 2008 TONSILLECTOMY 196 COLONOSCOPY X2 OPERATION ON L5S1.RADIO FREQUENCY NERVE ABLATION.GETS DONE EVERY 6 MONTHS 2016 & 09/17/17 LEFT CARPAL TUNNEL REPAIR 04/2019 FAMILY HISTORY FATHER: SKIN CANCER AT AGE 76, DIAGNOSED WITH HYPERTENSION MOTHER: ALIVE, LEUKEMIA, DIABETES, HYPERTENSION SIBLINGS: ALIVE, BREAST CANCER PATERNAL GRAND MOTHER: COLON CANCER AT AGE 50 MATERNAL GRAND MOTHER: OVARIAN CANCER, DX AT AGE 75 PATERNAL UNCLE: PROSTATE CA AT AGE 74 MATERNAL AUNTS X 2 WITH BREAST CA, DX AT AGE 60 AND 65. ONE MATERNAL COUSIN DX AT AGE 41 WITIH BREAST CANCER. SISTER RECENTLY DX WITH AGGRESSIVE FORM OF BREAST CA AT AGE 56. SOCIAL HISTORY GENERAL: TOBACCO USE ARE YOU A:NONSMOKER OTHERS AT HOME: SPOUSE, 2 DOGS, 3 HORSES. 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 LANGUAGE LANGUAGES SPOKEN:[place] DOMESTIC VIOLENCE DO YOU FEEL SAFE IN YOUR ENVIRONMENT?YES RECREATIONAL DRUG USE DENIES. EXERCISE: NO REGULAR EXERCISE DUE TO PAIN IN LEFT LEG. LEARNING BARRIERS / SPECIAL NEEDS BARRIERS TO LEARNING?NO HEARING IMPAIRED?YES :HEARING AIDES LEFT EAR.SLIGHT LOSS IN RIGHT VISION IMPAIRED?YES :CORRECTIVE LENSES COGNITIVELY IMPAIRED?NO READINESS TO LEARN?YES LEARNING PREFERENCES?NO LEARNING CAPABILITIES PRESENT?YES EMOTIONAL BARRIERS?NO SPECIAL DEVICES?NO MANAGEMENT AND BUDGET ANALYST NEEDED?NO PAIN CLINIC PFS, CLERGY, PUBLIC HEALTH REFERRALS PFS REFERRAL NEEDED?NO CLERGY REFERRAL NEEDED?NO PUBLIC HEALTH REFERRAL NEEDED?NO HAS THE PATIENT BEEN EDUCATED REGARDING HIS/HER PLAN OF CARE?YES HAS THE PATIENT BEEN EDUCATED REGARDING PAIN, THE RISK FOR PAIN, THE IMPORTANCE OF EFFECTIVE PAIN MANAGEMENT, AND THE PAIN ASSESSMENT PROCESS?YES LATEX QUESTIONNAIRE LATEX ALLERGY : HAVE YOU EVER DEVELOPED ANY TYPE OF REACTION AFTER HANDLING LATEX PRODUCTS SUCH RUBBER GLOVES, CONDOMS, DIAPHRAGMS, BALLOONS, SOCKS, OR UNDERWEAR?NO LATEX ALLERGY : HAVE YOU EVER DEVELOPED ANY TYPE OF REACTION DURING OR AFTER DENTAL APPOINTMENT, VAGINAL/RECTAL EXAMINATION, SURGICAL PROCEDURE, OR ANY OTHER EXPOSURE?NO LATEX RISK : HAVE YOU EVER HAD ANY DIFFICULTY BREATHING OR HIVES AFTER EATING OR HANDLING ANY FRUITS, OR VEGETABLES; SUCH KIWI, BANANAS, STONE FRUITS, OR CHESTNUTSNO LATEX RISK : DO YOU HAVE A PREVIOUS PERSONAL HISTORY OF MORE THAN NINE SURGERIES, SPINA BIFIDA, OR REPEATED CATHERIZATIONS? NO LATEX RISK : ARE YOU FREQUENTLY EXPOSED TO LATEX PRODUCTS IN YOUR OCCUPATION?NO DATE ASKED : 08/26/2019 CAFFEINE 1/DAY. ADVANCE DIRECTIVE ADVANCE DIRECTIVE DISCUSSED WITH PATIENT:YES 08/26/2019 PT DOES NOT HAVE ANY ADVANCED DIRECTIVES AND SHE DECLINES INFORAMTION ON HCP AT THIS TIME AD MANDAEISM [id number] RASTAFARIAN MARITAL STATUS: . 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 HOSPITALIZATION/MAJOR DIAGNOSTIC PROCEDURE BACK PAIN 01/2016 REVIEW OF SYSTEMS REVIEWED BY: PROVIDER: TETO QUINN IMPOSER-C . CONSTITUTIONAL: ANY CHANGE IN YOUR MEDICAL CONDITION? NO . CHILLS NO . FEVER NO . INFECTION: DO YOU HAVE NEW INFECTIONS? NO . DO YOU HAVE HISTORY OF MRSA? NO . MUSCULOSKELETAL: ANY NEW PATTERNS OF PAIN OR NUMBNESS? NO . GASTROENTEROLOGY: ANY NEW CHANGE IN BOWEL CONTROL? NO . GENITOURINARY: ANY NEW CHANGE IN BLADDER CONTROL? NO . IS THERE A CHANCE YOU COULD BE ? NO . HEMATOLOGY/LYMPH: DO YOU TAKE ANY BLOOD THINNERS? (FOR EXAMPLE- COUMADIN, PLAVIX, AGGRENOX, PLATEL, PRADAXA, OR XARELTO) NO . WHEN WAS YOUR LAST DOSE? DATE: TIME: . NEUROLOGY: HAVE YOU FALLEN IN THE PAST 12 MONTHS? NO . ANY NEW EXTREMITY NUMBNESS OR WEAKNESS? NO . CARDIOLOGY: DO YOU HAVE A PACEMAKER OR DEFIBRILLATOR? NO . RESPIRATORY: HAVE YOU BEEN SICK IN THE PAST WEEK? NO . FEVER NO . FLU LIKE SYMPTOMS? NO . COUGH NO . INTEGUMENTARY: DO YOU HAVE ANY RASHES OR OPEN SORES? NO . ALLERGIC/IMMUNO: ARE YOU ALLERGIC TO IV DYE? NO . ANY NEW ALLERGIES? NO . PSYCHIATRIC: DO YOU HAVE THOUGHTS OF HURTING YOURSELF OR SOMEONE ELSE? NO . ARE YOU ABUSED, NEGLECTED, OR IN AN UNSAFE ENVIRONMENT? NO . ENDOCRINOLOGY: ARE YOU DIABETIC? NO . OTHER: DO YOU NEED ANY PRESCRIPTIONS? YES, TRAMADOL . IF YES, PLEASE LIST: ____ . ANY NEW PROBLEMS WITH YOUR MEDICATIONS? NO . WHEN DID YOU LAST EAT? ____ . WHEN DID YOU LAST DRINK? ____ . WHAT DID YOU LAST DRINK? ____ . NAME OF PERSON DRIVING YOU HOME? ____ . DO YOU HAVE ANY OTHER QUESTIONS OR CONCERNS NO . VITAL SIGNS WT 184.2 LBS, HT 65 IN, BMI 30.65 INDEX, BP 132/69 MM HG, HR 77 /MIN, RR 18 /MIN, TEMP 96.4 F, OXYGEN SAT % 97%, SAFE IN ENV? (Y/N) Y, NA INITIALS MS 1028, REVIEWED BY: JIGNA. EXAMINATION GENERAL EXAMINATION: GENERALNO ACUTE DISTRESS, WELL NOURISHED AND HYDRATED. PSYCHAPPROPRIATE MOOD AND AFFECT . LUNGS:CLEAR TO AUSCULTATION BILATERALLY, NO WHEEZES, RHONCHI, RALES. HEART:NO MURMURS, REGULAR RATE AND RHYTHM. ASSESSMENTS INTERVERTEBRAL DISC DISORDERS WITH RADICULOPATHY, LUMBOSACRAL REGION - M51.17 (PRIMARY) TREATMENT INTERVERTEBRAL DISC DISORDERS WITH RADICULOPATHY, LUMBOSACRAL REGION REFILL TRAMADOL HCL TABLET, 50 MG, 1 TABLET NEEDED, ORALLY, DAILY PRN PAIN MDD=1 REFILL 90 DAYS CATEGORY D CHRONIC PAIN NYS, 90 DAY(S), 90 CLINICAL NOTES: 54-YEAR-OLD FEMALE IN FOR CHRONIC PAIN FOLLOW-UP. GIVEN PRESENTING SYMPTOMS AND RESULTS OF PHYSICAL EXAMINATION RECOMMEND FOLLOW-UP IN 4 MONTHS. PATIENT HAS EXPRESSED UNDERSTANDING OF AND WAS IN AGREEMENT WITH TREATMENT PLAN. GIVEN TIME TO ASK QUESTIONS AND EXPRESS CONCERNS., ISTOP REGISTRY REVIEWED AND DEMONSTRATES COMPLLIANCE. (REF # [id number] ) BRINGS IN MEDICATIONS WHICH IS APPROPRIATE FOR WHAT WAS DISPENSED. RECENT URINE TOXICOLOGY REVIEWED. NO UNAUTHORIZED MEDICATIONS. NO ILLICIT SUBSTANCES AND PRESCRIBED MEDICATIONS WERE PRESENT. PROCEDURE CODES FA211 ESTABILISHED PATIENT [facility] CHARGE DISPOSITION & COMMUNICATION FOLLOW UP 4 MONTHS (REASON: BACK PAIN) ELECTRONICALLY SIGNED BY BONY TELLEZ ON 08/27/2019 AT 08:35 AM EST DISCLAIMER : THIS IS A VISIT SUMMARY EXTRACTED FROM THE [facility] CHART. IT IS NOT A COPY OF THE [employer] PROGRESS NOTE. MTDD
== END ==
LOC: M PAIN 10:15
PROVIDERS: ATTEND Family Medicine
DX: M51.17 Intervertebral disc disorders with radiculopathy, lumbosacral region (principal)

== ENCOUNTER → 2019-09-21 | Outpatient (REF) | payer BC ==
[2019-09-21 14:24] LABS: ALT/SGPT 34 U/L (12-78); BILIRUBIN,TOTAL 0.5 MG/DL (0.2-1.0); BLOOD UREA NITROGEN 18 MG/DL (7-18); CALCIUM LEVEL 9.5 MG/DL (8.8-10.2); CARBON DIOXIDE LEVEL 31 MEQ/L (21-32); CHLORIDE LEVEL 106 MEQ/L (98-107); CHOLESTEROL LEVEL 198 MG/DL (<200); CHOLESTEROL RISK RATIO 2.329 (<5); CREATININE FOR GFR 0.74 MG/DL (0.55-1.30); FREE T4 0.96 NG/DL (0.76-1.46); GLOMERULAR FILTRATION RATE > 60.0 (>45); GLUCOSE, FASTING 96 MG/DL (70-100); HDL CHOLESTEROL 85 MG/DL (>40); LDL CHOLESTEROL 91 MG/DL (<100); NON-HDL-C 113 MG/DL; POTASSIUM SERUM 4.1 MEQ/L (3.5-5.1); SODIUM LEVEL 140 MEQ/L (136-145); TOTAL PROTEIN 7.1 GM/DL (6.4-8.2); TRIGLYCERIDES LEVEL 111 MG/DL (<150)
== END ==
LOC: M LABDRAW1 09:24
PROVIDERS: ATTEND Physician Assistant
DX: I10 Essential (primary) hypertension (principal); E78.2 Mixed hyperlipidemia

== ENCOUNTER → 2019-11-16 | Outpatient (CLI) | payer BC ==
[2019-11-16 14:41] LABS: FREE T4 0.94 NG/DL (0.76-1.46); THYROID STIMULATING HORMONE 2.2 uIU/ML (0.358-3.740)
== END ==
LOC: M PLALAB 11:12
PROVIDERS: ATTEND Family Medicine
DX: R94.6 Abnormal results of thyroid function studies (principal)

== ENCOUNTER → 2019-12-21 | Outpatient (CLI) | payer BC ==
--- NOTE | 2019-12-23 04:14 | ECWPNPC ---
PATIENT NAME: SHITAL HA : 1955 GENDER: FEMALE VISIT DATE: 12/21/2019 DISCHARGE DATE: 12/21/19 1138 VISIT LOCKED DATE TIME: PHYSICIAN: CAM QUINN RESOURCE: CAM QUINN REASON FOR APPOINTMENT 1. 4 MONTH FOLLOW UP- [id number]@[employer] PAT DONE HISTORY OF PRESENT ILLNESS GENERAL: - 64-YEAR-OLD FEMALE IN FOR CHRONIC PAIN FOLLOW-UP. SHE HAS NO COMPLAINTS OF PAIN AT THIS TIME. SHE ADMITS TO STOPPING USE OF TRAMADOL SHE IS CURRENTLY TAKING TEMAZEPAM AND DOES NOT WANT TO MIX THE 2 MEDICATIONS. SHE HAS CONTINUED WITH GABAPENTIN. PAIN SCREENING: PATIENT HAS A COMPLAINT OF ACUTE OR CHRONIC PAIN :YES INTENSITY OF PAIN (SCALE OF 1 TO 10):0 PAIN DURING THE END OF THE DAY FALL RISK SCREENING: SCREENING :NO FALLS REPORTED IN THE LAST YEAR NURSING NOTE: -. PAIN CENTER INTAKE QUESTIONS: DO YOU HAVE A HISTORY OF MRSA? :NO DO YOU TAKE A BLOOD THINNERS? :NO DO YOU HAVE ANY BLEEDING DISORDERS? :NO ANY NEW NUMBNESS OR WEAKNESS IN YOUR LEGS OR ARMS? :NO ANY PACEMAKER,DEFIBRILLATOR, OR DORSAL COLUMN STIMULATOR? :NO DO YOU HAVE ANY RASHES OR OPEN SORES? :NO ARE YOU ALLERGIC TO IV DYE? :NO ARE YOU DIABETIC? :NO ANY NEW PROBLEMS WITH YOUR MEDICATIONS? :NO HAVE YOU RECEIVED A VACCINE IN THE PAST 30 DAYS? :NO DO YOU PLAN TO RECEIVE A VACCINE IN THE NEXT 21 DAYS? :NO DO YOU NEED ANY PRESCRIPTION? :NO DO YOU TAKE ANY IMMUNOSUPPRESSIVE MEDICATIONS? :NO IS THERE A CHANCE YOU COULD BE ? :NO ARE YOU BREAST FEEDING? :NO CURRENT MEDICATIONS TAKING MAG-200 200 MG TABLET 2TAB ORALLY AT BEDTIME TAKING LISINOPRIL 10 MG TABLET 1 TABLET ORALLY ONCE A DAY TAKING TYLENOL 8 HOUR 650 MG TABLET EXTENDED RELEASE 2 TABLETS NEEDED ORALLY EVERY 8 HRS TAKING MULTI COMPLETE - CAPSULE 1 CAP ORALLY DAILY TAKING CLOBETASOL PROPIONATE 0.05 % CREAM 1 APPLICATION TO AFFECTED AREA EXTERNALLY TO PERINEUM TWICE WEEK TO PERINEUM, AFTER 12 WEEKS MAY DECREASE TO PRN DOSING TAKING ATORVASTATIN CALCIUM 10 MG TABLET 1 TABLET ORALLY ONCE A DAY TAKING FISH OIL 1200 MG CAPSULE 1 CAPSULE ORALLY ONCE A DAY TAKING VITAMIN B COMPLEX-C - CAPSULE DIRECTED ORALLY TAKING [id number]-HYAL - CAPSULE 2 CAPS ORALLY DAILY TAKING TEMAZEPAM 15 MG CAPSULE 1 CAPSULE AT BEDTIME NEEDED ORALLY ONCE A DAY TAKING GABAPENTIN 300 MG CAPSULE 1 CAPSULE ORALLY THREE TIMES A DAY FOR PAIN NOT-TAKING TRAMADOL HCL 50 MG TABLET 1 TABLET NEEDED ORALLY DAILY PRN PAIN MDD=1 REFILL 90 DAYS CATEGORY D CHRONIC PAIN NYS NOT-TAKING MAALOX 600 MG TABLET CHEWABLE ORALLY TWICE A DAY NEEDED NOT-TAKING PERCOCET 5-325 MG TABLET 1 TABLET NEEDED ORALLY EVERY 6 HRS PRN MDD4 NOT-TAKING BENADRYL ALLERGY 25 MG TABLET 2 TABLET NEEDED ORALLY EVERY 8 HRS NOT-TAKING IBUPROFEN 400 MG TABLET 1 TABLET ORALLY FOUR TIMES DAILY PRN PAIN TAKE WITH FOOD NOT-TAKING TIZANIDINE HCL 4 MG TABLET 1 TABLET NEEDED ORALLY BEFORE BEDTIME NOT-TAKING LIDODERM 5 % PATCH 1 PATCH TO SKIN REMOVE AFTER 12 HOURS EXTERNALLY ONCE A DAY PRN MEDICATION LIST REVIEWED AND RECONCILED WITH THE PATIENT PAST MEDICAL HISTORY HTN SEASONAL ALLERGIES-YEAR ROUND BIGEMINY HEARING LOSS WITH GEOVANY HEARING AIDES/READS LIPS ARTHRITIS CARPAL TUNNEL LEFT WRIST BACK PAIN ALLERGIES AUGMENTIN: DIARRHEA - SIDE EFFECTS SURGICAL HISTORY C SECTION X 2 1983 & 1984 CARPAL TUNNEL R 2008 TONSILLECTOMY 1961 COLONOSCOPY X2 OPERATION ON L5S1.RADIO FREQUENCY NERVE ABLATION.GETS DONE EVERY 6 MONTHS 2016 & 09/17/17 LEFT CARPAL TUNNEL REPAIR 04/2019 FAMILY HISTORY FATHER: SKIN CANCER AT AGE 76, DIAGNOSED WITH HYPERTENSION MOTHER: ALIVE, LEUKEMIA, DIABETES, HYPERTENSION SIBLINGS: ALIVE, BREAST CANCER PATERNAL GRAND MOTHER: COLON CANCER AT AGE 50 MATERNAL GRAND MOTHER: OVARIAN CANCER, DX AT AGE 75 PATERNAL UNCLE: PROSTATE CA AT AGE 74 MATERNAL AUNTS X 2 WITH BREAST CA, DX AT AGE 60 AND 65. ONE MATERNAL COUSIN DX AT AGE 41 WITIH BREAST CANCER. SISTER RECENTLY DX WITH AGGRESSIVE FORM OF BREAST CA AT AGE 56. SOCIAL HISTORY GENERAL: TOBACCO USE ARE YOU A:NONSMOKER LATEX QUESTIONNAIRE LATEX ALLERGY : HAVE YOU EVER DEVELOPED ANY TYPE OF REACTION AFTER HANDLING LATEX PRODUCTS SUCH RUBBER GLOVES, CONDOMS, DIAPHRAGMS, BALLOONS, SOCKS, OR UNDERWEAR?NO LATEX ALLERGY : HAVE YOU EVER DEVELOPED ANY TYPE OF REACTION DURING OR AFTER DENTAL APPOINTMENT, VAGINAL/RECTAL EXAMINATION, SURGICAL PROCEDURE, OR ANY OTHER EXPOSURE?NO LATEX RISK : HAVE YOU EVER HAD ANY DIFFICULTY BREATHING OR HIVES AFTER EATING OR HANDLING ANY FRUITS, OR VEGETABLES; SUCH KIWI, BANANAS, STONE FRUITS, OR CHESTNUTSNO LATEX RISK : DO YOU HAVE A PREVIOUS PERSONAL HISTORY OF MORE THAN NINE SURGERIES, SPINA BIFIDA, OR REPEATED CATHERIZATIONS? NO LATEX RISK : ARE YOU FREQUENTLY EXPOSED TO LATEX PRODUCTS IN YOUR OCCUPATION?NO DATE ASKED : 12/21/2019 ALCOHOL SCREENING DID YOU HAVE A DRINK CONTAINING ALCOHOL IN THE PAST YEAR?YES HOW OFTEN DID YOU HAVE SIX OR MORE DRINKS ON ONE OCCASION IN THE PAST YEAR?NEVER (0 POINTS) HOW MANY DRINKS DID YOU HAVE ON A TYPICAL DAY WHEN YOU WERE DRINKING IN THE PAST YEAR?1 OR 2 (0 POINTS) HOW OFTEN DID YOU HAVE A DRINK CONTAINING ALCOHOL IN THE PAST YEAR?MONTHLY OR LESS (1 POINT) POINTS1 INTERPRETATIONNEGATIVE RECREATIONAL DRUG USE DENIES. CAFFEINE 1/DAY. SEXUAL HX HAD SEX IN THE LAST 12 MONTHS (VAGINAL, ORAL, OR ANAL)?NO LMP:2011 HAVE YOU EVER HAD AN STD?NO SCIENTOLOGIST [id number] SIKHISM LANGUAGE LANGUAGES SPOKEN:JAPANESE EDUCATION LEVEL OF EDUCATION:PROFESSIONAL SCHOOLS/MASTERS/PHD LEARNING BARRIERS / SPECIAL NEEDS BARRIERS TO LEARNING?NO HEARING IMPAIRED?YES VISION IMPAIRED?YES COGNITIVELY IMPAIRED?NO :HEARING AIDES LEFT EAR.SLIGHT LOSS IN RIGHT :CORRECTIVE LENSES READINESS TO LEARN?YES LEARNING PREFERENCES?NO LEARNING CAPABILITIES PRESENT?YES EMOTIONAL BARRIERS?NO SPECIAL DEVICES?NO REFRIGERATING ENGINEER NEEDED?NO DOMESTIC VIOLENCE DO YOU FEEL SAFE IN YOUR ENVIRONMENT?YES OCCUPATION: PHARMACIST AT [employer]. DIET: NO HX EATING DISORDERS. EXERCISE: NO REGULAR EXERCISE DUE TO PAIN IN LEFT LEG. MARITAL STATUS: . OTHERS AT HOME: SPOUSE, 2 DOGS, 3 HORSES. PAIN CLINIC PFS, CLERGY, PUBLIC HEALTH REFERRALS PFS REFERRAL NEEDED?NO CLERGY REFERRAL NEEDED?NO PUBLIC HEALTH REFERRAL NEEDED?NO HAS THE PATIENT BEEN EDUCATED REGARDING HIS/HER PLAN OF CARE?YES HAS THE PATIENT BEEN EDUCATED REGARDING PAIN, THE RISK FOR PAIN, THE IMPORTANCE OF EFFECTIVE PAIN MANAGEMENT, AND THE PAIN ASSESSMENT PROCESS?YES ADVANCE DIRECTIVE ADVANCE DIRECTIVE DISCUSSED WITH PATIENT:YES 08/26/2019 PT DOES NOT HAVE ANY ADVANCED DIRECTIVES AND SHE DECLINES INFORAMTION ON HCP AT THIS TIME AD HOSPITALIZATION/MAJOR DIAGNOSTIC PROCEDURE BACK PAIN 01/2016 REVIEW OF SYSTEMS CONSTITUTIONAL: ANY RECENT FEVER OR ILLNESS NO . CHILLS NO . GASTROENTEROLOGY: BOWEL INCONTINENCE NO . ANY NEW CHANGE IN BOWEL CONTROL? NO . ABDOMINAL PAIN NO . CONSTIPATION NO . GENITOURINARY: ANY NEW CHANGE IN BLADDER CONTROL? NO . URINARY INCONTINENCE NO . CARDIOLOGY: CHEST PRESSURE NO . CHEST PAIN NO . RESPIRATORY: COUGH NO . SHORTNESS OF BREATH NO . EXAMINATION GENERAL EXAMINATION: GENERALNO ACUTE DISTRESS, WELL NOURISHED AND HYDRATED. PSYCHAPPROPRIATE MOOD AND AFFECT , ORIENTED X 3. ASSESSMENTS TROCHANTERIC BURSITIS OF LEFT HIP - M70.62 (PRIMARY) TREATMENT TROCHANTERIC BURSITIS OF LEFT HIP REFILL GABAPENTIN CAPSULE, 300 MG, 1 CAPSULE, ORALLY, THREE TIMES A DAY FOR PAIN, 90 DAYS, 270, REFILLS 2 CLINICAL NOTES: 64-YEAR-OLD FEMALE IN FOR CHRONIC PAIN FOLLOW-UP. GIVEN PRESENTING SYMPTOMS RECOMMEND CONTINUATION OF GABAPENTIN WITH FOLLOW-UP IN 4 MONTHS. PATIENT HAS EXPRESSED UNDERSTANDING OF AND WAS IN AGREEMENT WITH TREATMENT PLAN. GIVEN TIME TO ASK QUESTIONS AND EXPRESS CONCERNS. TELEHEALTH VISIT CONDUCTED VIA ZOOM. TIME SPENT WITH PATIENT 7 MINUTES. OTHERS NOTES: VITALS NOT OBTAINED DUE TO VIRTUAL VISIT, PRE-SCREENING COMPLETED, 12/21/19, NA. DISPOSITION & COMMUNICATION FOLLOW UP 4 MONTHS (REASON: BACK PAIN, PATIENT TO CALL WHEN SHE RETURNS FROM [place] TO SET UP APPOINTMENT) ELECTRONICALLY SIGNED BY BONY TELLEZ ON 12/22/2019 AT 02:10 PM EDT DISCLAIMER : THIS IS A VISIT SUMMARY EXTRACTED FROM THE [employer] CHART. IT IS NOT A COPY OF THE [employer] PROGRESS NOTE. MAGI
== END ==
LOC: M PAIN 10:45
PROVIDERS: ATTEND Family Medicine
DX: M70.62 Trochanteric bursitis, left hip (principal)

== ENCOUNTER → 2020-02-01 | Outpatient (CLI) | payer BC ==
--- NOTE | 2020-02-01 15:40 | REPMRS ---
Patient History The patient states she had a clinical breast exam in January 2020.Family history of ovarian cancer at age 75 in maternal grandmother, breast cancer at age 60 in maternal aunt, breast cancer at age 56 in sister, breast cancer at age 65 in maternal aunt, colorectal cancer at age 50 in paternal grandmother, prostate cancer at age 74 in paternal uncle, breast cancer at age 40 in maternal cousin. No Hormone Replacement Therapy Digital Woman Screen Mammo: February 01, 2020 - Exam #: [id number] Bilateral CC and MLO view(s) were taken. Technologist: Nuria Lind, Technologist Prior study comparison: October 07, 2018, bilateral digital woman screen mammo performed at [facility]. October 01, 2017, digital woman screen mammo performed at [facility]. April 22, 2016, digital woman screen mammo performed at [facility]. FINDINGS: There are scattered fibroglandular densities. The Volpara volumetric breast density category is: B. There is a moderate amount of residual fibroglandular tissue which is fairly symmetric. There is no interval development of dominant mass, architectural distortion, or grouped microcalcification typical of malignancy. There has been no change in the appearance of the mammogram from the prior studies. 3-D tomosynthesis shows no additional findings. Assessment: BI-RADS/ACR category 1 mammogram. Negative Mammogram. Recommendation Breast MRI of both breasts in 6 months. Routine screening mammogram of both breasts in 1 year (for women over age 40). This patient's Lifetime Breast Cancer RIsk is estimated at 23.6 %. Annual screening Breast MRI scanniing is recommended for patient's whose lifetime risk assessment is over 20%. This mammogram was interpreted with the aid of an FDA-approved computer-aided dectection system. Electronically Signed By: David Peck MD 02/01/20 [id number]
== END ==
LOC: M WHC 13:46
PROVIDERS: ATTEND Nurse Practitioner Women's Health
DX: Z12.31 Encounter for screening mammogram for malignant neoplasm of breast (principal); Z80.3 Family history of malignant neoplasm of breast

== ENCOUNTER → 2020-02-01 | Outpatient (REF) | payer BC | LOC: M SFHCWAGY 09:19 | PROVIDERS: ATTEND Nurse Practitioner Women's Health | DX: Z12.4 Encounter for screening for malignant neoplasm of cervix (principal); N95.2 Postmenopausal atrophic vaginitis ==

== ENCOUNTER → 2020-04-10 | Outpatient (CLI) | payer BC ==
[2020-04-10 16:03] LABS: BASO % 0.7 % (0.0-1.0); EOS # 0.3 10^3/uL (0.0-0.5); EOS % 4.6 % (0.0-3.0); HEMATOCRIT 44.6 % (36.0-47.0); HEMOGLOBIN 14.8 g/dl (12.0-15.5); LYMPH % 32.2 % (24.0-44.0); MEAN CORPUSCULAR HEMOGLOBIN 30.3 pg (27.0-33.0); MEAN CORPUSCULAR HGB CONC 33.2 g/dl (32.0-36.5); MEAN CORPUSCULAR VOLUME 91.2 fl (80.0-96.0); MONO # 0.6 10^3/uL (0.0-0.8); MONO % 10.2 % (0.0-5.0); NEUTROPHILS # 3.2 10^3/uL (1.5-8.5); NEUTROPHILS % 52.1 % (36.0-66.0); PLATELET COUNT, AUTOMATED 234 10^3/uL (150-450); RED BLOOD COUNT 4.89 10^6/uL (4.00-5.40); WHITE BLOOD COUNT 6.1 10^3/uL (4.0-10.0)
[2020-04-10 16:32] LABS: ALT/SGPT 28 U/L (12-78); BILIRUBIN,TOTAL 0.3 MG/DL (0.2-1.0); BLOOD UREA NITROGEN 18 MG/DL (7-18); CALCIUM LEVEL 9.7 MG/DL (8.8-10.2); CARBON DIOXIDE LEVEL 31 MEQ/L (21-32); CHLORIDE LEVEL 108 MEQ/L (98-107); CHOLESTEROL LEVEL 194 MG/DL (<200); CHOLESTEROL RISK RATIO 2.063 (<5); CREATININE FOR GFR 0.77 MG/DL (0.55-1.30); FREE T4 0.92 NG/DL (0.76-1.46); GLOMERULAR FILTRATION RATE > 60.0 (>45); GLUCOSE, FASTING 84 MG/DL (70-100); HDL CHOLESTEROL 94 MG/DL (>40); LDL CHOLESTEROL 77 MG/DL (<100); NON-HDL-C 100 MG/DL; POTASSIUM SERUM 4.5 MEQ/L (3.5-5.1); SODIUM LEVEL 143 MEQ/L (136-145); TRIGLYCERIDES LEVEL 116 MG/DL (<150)
== END ==
LOC: M PLALAB 13:59
PROVIDERS: ATTEND Family Medicine
DX: E78.2 Mixed hyperlipidemia (principal); I10 Essential (primary) hypertension

== ENCOUNTER → 2020-05-04 | Outpatient (CLI) | payer BC ==
--- NOTE | 2020-05-08 14:20 | ECWPNPC ---
PATIENT NAME: SHITAL HA : 1955 GENDER: FEMALE VISIT DATE: 05/04/2020 DISCHARGE DATE: 05/04/20 1133 VISIT LOCKED DATE TIME: PHYSICIAN: CAM QUINN RESOURCE: CAM QUINN REASON FOR APPOINTMENT 1. BACK PAIN, PATIENT TO CALL WHEN SHE RETURNS FROM [place] TO SET UP APPOINTMENT HISTORY OF PRESENT ILLNESS GENERAL: - 64-YEAR-OLD FEMALE IN FOR CHRONIC PAIN FOLLOW-UP. SHE FEELS HER MEDICATIONS ARE HELPFUL AND DENIES MED SIDE EFFECTS AT THIS TIME. FALL RISK SCREENING: SCREENING :NO FALLS REPORTED IN THE LAST YEAR PAIN SCREENING: PATIENT HAS A COMPLAINT OF ACUTE OR CHRONIC PAIN :NO NURSING NOTE: -. PAIN CENTER INTAKE QUESTIONS: DO YOU HAVE A HISTORY OF MRSA? :NO DO YOU TAKE A BLOOD THINNERS? :NO DO YOU HAVE ANY BLEEDING DISORDERS? :NO ANY NEW NUMBNESS OR WEAKNESS IN YOUR LEGS OR ARMS? :NO ANY PACEMAKER,DEFIBRILLATOR, OR DORSAL COLUMN STIMULATOR? :NO DO YOU HAVE ANY RASHES OR OPEN SORES? :NO ARE YOU ALLERGIC TO IV DYE? :NO ARE YOU DIABETIC? :NO ANY NEW PROBLEMS WITH YOUR MEDICATIONS? :NO HAVE YOU RECEIVED A VACCINE IN THE PAST 30 DAYS? :YES PATIENT GOT A FLU SHOT 2019. DO YOU PLAN TO RECEIVE A VACCINE IN THE NEXT 21 DAYS? :NO DO YOU NEED ANY PRESCRIPTION? :NO DO YOU TAKE ANY IMMUNOSUPPRESSIVE MEDICATIONS? :NO IS THERE A CHANCE YOU COULD BE ? :NO ARE YOU BREAST FEEDING? :NO CURRENT MEDICATIONS TAKING LISINOPRIL 10 MG TABLET 1 TABLET ORALLY ONCE A DAY TAKING TYLENOL 8 HOUR 650 MG TABLET EXTENDED RELEASE 2 TABLETS NEEDED ORALLY EVERY 8 HRS TAKING MULTI COMPLETE - CAPSULE 1 CAP ORALLY DAILY TAKING ATORVASTATIN CALCIUM 10 MG TABLET 1 TABLET ORALLY ONCE A DAY TAKING [id number] - CAPSULE 2 CAPS ORALLY DAILY TAKING TEMAZEPAM 15 MG CAPSULE 1 CAPSULE AT BEDTIME NEEDED ORALLY ONCE A DAY TAKING GABAPENTIN 300 MG CAPSULE 1 CAPSULE ORALLY THREE TIMES A DAY FOR PAIN TAKING MAGNESIUM 400 MG CAPSULE 2 TABLETS WITH A MEAL ORALLY TAKING CLOBETASOL PROPIONATE 0.05 % CREAM 1 APPLICATION TO AFFECTED AREA EXTERNALLY TO PERINEUM TWICE WEEKLY TAKING RESTASIS MULTIDOSE EYEDROPS 1 DROP BOTH EYES TWICE A DAY TAKING NAPROXEN 220MG TABLET 2 TABLETS ORALLY AT BEDTIME NOT-TAKING MAG-200 200 MG TABLET 2TAB ORALLY AT BEDTIME NOT-TAKING TRAMADOL HCL 50 MG TABLET 1 TABLET NEEDED ORALLY DAILY PRN PAIN MDD=1 REFILL 90 DAYS CATEGORY D CHRONIC PAIN NYS NOT-TAKING MAALOX 600 MG TABLET CHEWABLE ORALLY TWICE A DAY NEEDED NOT-TAKING PERCOCET 5-325 MG TABLET 1 TABLET NEEDED ORALLY EVERY 6 HRS PRN MDD4 NOT-TAKING BENADRYL ALLERGY 25 MG TABLET 2 TABLET NEEDED ORALLY EVERY 8 HRS NOT-TAKING IBUPROFEN 400 MG TABLET 1 TABLET ORALLY FOUR TIMES DAILY PRN PAIN TAKE WITH FOOD NOT-TAKING TIZANIDINE HCL 4 MG TABLET 1 TABLET NEEDED ORALLY BEFORE BEDTIME NOT-TAKING LIDODERM 5 % PATCH 1 PATCH TO SKIN REMOVE AFTER 12 HOURS EXTERNALLY ONCE A DAY PRN NOT-TAKING FISH OIL 1200 MG CAPSULE 1 CAPSULE ORALLY ONCE A DAY NOT-TAKING VITAMIN B COMPLEX-C - CAPSULE DIRECTED ORALLY MEDICATION LIST REVIEWED AND RECONCILED WITH THE PATIENT PAST MEDICAL HISTORY HTN SEASONAL ALLERGIES-YEAR ROUND BIGEMINY HEARING LOSS WITH GEOVANY HEARING AIDES/READS LIPS ARTHRITIS CARPAL TUNNEL LEFT WRIST BACK PAIN TYRER-CUZICK SCORE 24.4%, DENSE BREASTS, FAM HX OF BREAST CA ALLERGIES AUGMENTIN: DIARRHEA - SIDE EFFECTS SURGICAL HISTORY C SECTION X 2 1983 & 1984 CARPAL TUNNEL R 2008 TONSILLECTOMY 1961 COLONOSCOPY X2 OPERATION ON L5S1.RADIO FREQUENCY NERVE ABLATION.GETS DONE EVERY 6 MONTHS 2016 & 09/17/17 LEFT CARPAL TUNNEL REPAIR 04/2019 FAMILY HISTORY FATHER: SKIN CANCER AT AGE 76, DIAGNOSED WITH HYPERTENSION MOTHER: ALIVE, LEUKEMIA, HYPERTENSION, DIABETES SIBLINGS: ALIVE, BREAST CANCER PATERNAL GRAND MOTHER: COLON CANCER AT AGE 50 MATERNAL GRAND MOTHER: OVARIAN CANCER, DX AT AGE 75 PATERNAL UNCLE: PROSTATE CA AT AGE 74 MATERNAL AUNTS X 2 WITH BREAST CA, DX AT AGE 60 AND 65. ONE MATERNAL COUSIN DX AT AGE 41 WITIH BREAST CANCER. SISTER RECENTLY DX WITH AGGRESSIVE FORM OF BREAST CA AT AGE 56. SOCIAL HISTORY GENERAL: TOBACCO USE ARE YOU A:NONSMOKER LATEX QUESTIONNAIRE LATEX ALLERGY : HAVE YOU EVER DEVELOPED ANY TYPE OF REACTION AFTER HANDLING LATEX PRODUCTS SUCH RUBBER GLOVES, CONDOMS, DIAPHRAGMS, BALLOONS, SOCKS, OR UNDERWEAR?NO LATEX ALLERGY : HAVE YOU EVER DEVELOPED ANY TYPE OF REACTION DURING OR AFTER DENTAL APPOINTMENT, VAGINAL/RECTAL EXAMINATION, SURGICAL PROCEDURE, OR ANY OTHER EXPOSURE?NO LATEX RISK : HAVE YOU EVER HAD ANY DIFFICULTY BREATHING OR HIVES AFTER EATING OR HANDLING ANY FRUITS, OR VEGETABLES; SUCH KIWI, BANANAS, STONE FRUITS, OR CHESTNUTSNO LATEX RISK : DO YOU HAVE A PREVIOUS PERSONAL HISTORY OF MORE THAN NINE SURGERIES, SPINA BIFIDA, OR REPEATED CATHERIZATIONS? NO LATEX RISK : ARE YOU FREQUENTLY EXPOSED TO LATEX PRODUCTS IN YOUR OCCUPATION?NO DATE ASKED : 05/04/2020 ALCOHOL SCREENING DID YOU HAVE A DRINK CONTAINING ALCOHOL IN THE PAST YEAR?YES HOW OFTEN DID YOU HAVE SIX OR MORE DRINKS ON ONE OCCASION IN THE PAST YEAR?NEVER (0 POINTS) HOW MANY DRINKS DID YOU HAVE ON A TYPICAL DAY WHEN YOU WERE DRINKING IN THE PAST YEAR?1 OR 2 (0 POINTS) HOW OFTEN DID YOU HAVE A DRINK CONTAINING ALCOHOL IN THE PAST YEAR?MONTHLY OR LESS (1 POINT) POINTS1 INTERPRETATIONNEGATIVE RECREATIONAL DRUG USE DENIES. CAFFEINE 1/DAY. SEXUAL HX HAD SEX IN THE LAST 12 MONTHS (VAGINAL, ORAL, OR ANAL)?NO LMP:2011 HAVE YOU EVER HAD AN STD?NO TAOIST [id number] WORSHIP LANGUAGE LANGUAGES SPOKEN:OCCITAN EDUCATION LEVEL OF EDUCATION:PROFESSIONAL SCHOOLS/MASTERS/PHD LEARNING BARRIERS / SPECIAL NEEDS BARRIERS TO LEARNING?NO HEARING IMPAIRED?YES VISION IMPAIRED?YES COGNITIVELY IMPAIRED?NO :HEARING AIDES LEFT EAR.SLIGHT LOSS IN RIGHT :CORRECTIVE LENSES READINESS TO LEARN?YES LEARNING PREFERENCES?NO LEARNING CAPABILITIES PRESENT?YES EMOTIONAL BARRIERS?NO SPECIAL DEVICES?NO METAL MINE INSPECTOR NEEDED?NO DOMESTIC VIOLENCE DO YOU FEEL SAFE IN YOUR ENVIRONMENT?YES 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 EXERCISE: NO REGULAR EXERCISE DUE TO PAIN IN LEFT LEG. MARITAL STATUS: . OTHERS AT HOME: SPOUSE, 2 DOGS, 3 HORSES. PAIN CLINIC PFS, CLERGY, PUBLIC HEALTH REFERRALS PFS REFERRAL NEEDED?NO CLERGY REFERRAL NEEDED?NO PUBLIC HEALTH REFERRAL NEEDED?NO HAS THE PATIENT BEEN EDUCATED REGARDING HIS/HER PLAN OF CARE?YES HAS THE PATIENT BEEN EDUCATED REGARDING PAIN, THE RISK FOR PAIN, THE IMPORTANCE OF EFFECTIVE PAIN MANAGEMENT, AND THE PAIN ASSESSMENT PROCESS?YES ADVANCE DIRECTIVE ADVANCE DIRECTIVE DISCUSSED WITH PATIENT:YES 08/26/2019 PT DOES NOT HAVE ANY ADVANCED DIRECTIVES AND SHE DECLINES INFORAMTION ON HCP AT THIS TIME AD HOSPITALIZATION/MAJOR DIAGNOSTIC PROCEDURE BACK PAIN 01/2016 REVIEW OF SYSTEMS CONSTITUTIONAL: ANY RECENT FEVER NO . CHILLS NO . WEIGHT CHANGE OF UNKNOWN REASONS NO . GASTROENTEROLOGY: NEW UNEXPLAINABLE CHANGES IN BOWEL CONTROL NO . CONSTIPATION NO . GENITOURINARY: ANY NEW CHANGE IN BLADDER CONTROL? NO . NEUROLOGY: NEW ONSET DIZZINESS OR NEUROLOGICAL CHANGES NOT MENTIONED NO . NEW NUMBNESS OR PAIN PATTERNS NOT MENTIONED AND PERTINENT TO TODAY'S VISIT NO . CARDIOLOGY: NEW CHEST PRESSURE NO . NEW CHEST PAIN NO . RESPIRATORY: UNEXPLAINABLE COUGH NO . NEW SHORTNESS OF BREATH NO . VITAL SIGNS WT 172.8 LBS, HT 65 IN, BMI 28.75 INDEX, BP 135/73 MM HG, HR 73 /MIN, RR 18 /MIN, TEMP 97.7 F, OXYGEN SAT % 97%, SAFE IN ENV? (Y/N) YES, NA INITIALS AW 1100, REVIEWED BY: TA. EXAMINATION GENERAL EXAMINATION: GENERALNO ACUTE DISTRESS, WELL NOURISHED AND HYDRATED. PSYCHAPPROPRIATE MOOD AND AFFECT . LUNGS:CLEAR TO AUSCULTATION BILATERALLY, NO WHEEZES, RHONCHI, RALES. HEART:NO MURMURS, REGULAR RATE AND RHYTHM. ASSESSMENTS SPONDYLOSIS WITHOUT MYELOPATHY OR RADICULOPATHY, LUMBOSACRAL REGION - M47.817 (PRIMARY) TREATMENT SPONDYLOSIS WITHOUT MYELOPATHY OR RADICULOPATHY, LUMBOSACRAL REGION NOTES: DISCUSSED CARE PLAN WITH PATIENT, PATIENT VERBALIZES UNDERSTANDING. - SHUBHAM CANO CMA . CLINICAL NOTES: 64-YEAR-OLD FEMALE IN FOR CHRONIC PAIN FOLLOW-UP. GIVEN PRESENTING SYMPTOMS RECOMMENDED CONTINUATION OF CURRENT MEDICATION REGIMEN WITH FOLLOW-UP IN 4 MONTHS. PATIENT HAS EXPRESSED UNDERSTANDING OF AND WAS IN AGREEMENT WITH TREATMENT PLAN. GIVEN TIME TO ASK QUESTIONS AND EXPRESS CONCERNS. PROCEDURE CODES FA211 ESTABILISHED PATIENT [facility] CHARGE DISPOSITION & COMMUNICATION FOLLOW UP 4 MONTHS (REASON: BACK PAIN) ELECTRONICALLY SIGNED BY BONY TELLEZ ON 05/08/2020 AT 10:34 AM EDT DISCLAIMER : THIS IS A VISIT SUMMARY EXTRACTED FROM THE [employer] CHART. IT IS NOT A COPY OF THE [employer] PROGRESS NOTE. MAGI
== END ==
LOC: M PAIN 11:00
PROVIDERS: ATTEND Family Medicine
DX: M47.817 Spondylosis without myelopathy or radiculopathy, lumbosacral region (principal); G89.29 Other chronic pain; I10 Essential (primary) hypertension; Z88.1 Allergy status to other antibiotic agents; Z79.899 Other long term (current) drug therapy

== ENCOUNTER → 2020-08-17 | Outpatient (CLI) | payer BC ==
[~2020-08-17] MED LIST changes: +PROHANCE 279.3MG/ML 15ML VIAL As Ordered ONE
--- NOTE | 2020-08-18 08:01 | REP ---
INDICATION: FAM HX BREAST CA, DENSE BREAST. COMPARISON: Comparison bilateral breast MRI study is from 04/08/2019. Comparison mammography February 01, 2020. TECHNIQUE: Three Trinh MRI imaging was performed with a dedicated breast coil. Axial, coronal, and sagittal T1 and T2 weighted scans were obtained with and without fat saturation in the usual fashion. The study includes dynamically acquired post gadolinium-enhanced imaging with image subtraction. Maximum intensity projection and multi planar reformation imaging is included as well. This study is interpreted with the aid of [employer], an FDA approved computer aided detection (CAD) software program, on a dedicated breast MRI workstation. The gadolinium enhancement dose is 17 mL of intravenous ProHance. FINDINGS: There is a moderate pattern of fibroglandular tissue again noted bilaterally. There is no evidence of axillary lymphadenopathy or significant breast cystic disease. High-resolution pre and post-contrast T1 and T2 weighted scans show no suspicious morphologic abnormality on either side. Sequentially acquired dynamic post-contrast images show no suspicious focus of enhancement and/or washout in either breast to suggest malignancy. Subtraction images are unremarkable and unchanged. IMPRESSION: BI-RADS category 1 negative bilateral breast MRI findings. Patients whose estimated lifetime breast cancer risk is greater than 20% merit annual screening breast MRI scanning in addition to annual screening mammography. <Electronically signed by David Peck > 08/18/20 3661
== END ==
LOC: M RAD 10:39
PROVIDERS: ATTEND Nurse Practitioner Women's Health
DX: R92.2 Inconclusive mammogram (principal); Z80.3 Family history of malignant neoplasm of breast; Z91.89 Other specified personal risk factors, not elsewhere classified
CPT/HCPCS: A9576; C8908

== ENCOUNTER → 2020-09-29 | Outpatient (CLI) | payer BC ==
[~2020-09-29] MED LIST changes: -PROHANCE 279.3MG/ML 15ML VIAL As Ordered ONE
--- NOTE | 2020-10-03 05:49 | ECWPNPC ---
PATIENT NAME: SHITAL HA : 1955 GENDER: FEMALE VISIT DATE: 09/29/2020 DISCHARGE DATE: 09/29/20 1421 VISIT LOCKED DATE TIME: PHYSICIAN: CAM QUINN RESOURCE: CAM QUINN REASON FOR APPOINTMENT 1. BACK PAIN HISTORY OF PRESENT ILLNESS DEPRESSION SCREENING: PHQ-2 (2015 EDITION) LITTLE INTEREST OR PLEASURE IN DOING THINGS?NOT AT ALL FEELING DOWN, DEPRESSED, OR HOPELESS?NOT AT ALL TOTAL SCORE0 65-YEAR-OLD FEMALE IN FOR CHRONIC PAIN FOLLOW-UP. SHE FEELS HER MEDICATIONS ARE HELPFUL AND DENIES MED SIDE EFFECTS AT THIS TIME. SHE HAS NO COMPLAINTS OF PAIN AT THIS TIME. GENERAL: -. FALL RISK SCREENING: SCREENING : NO FALLS REPORTED IN THE LAST YEAR. PAIN SCREENING: PATIENT HAS A COMPLAINT OF ACUTE OR CHRONIC PAIN :NO NURSING NOTE: -. PAIN CENTER INTAKE QUESTIONS: DO YOU HAVE A HISTORY OF MRSA? :NO DO YOU TAKE A BLOOD THINNERS? :NO DO YOU HAVE ANY BLEEDING DISORDERS? :NO ANY NEW NUMBNESS OR WEAKNESS IN YOUR LEGS OR ARMS? :NO ANY PACEMAKER,DEFIBRILLATOR, OR DORSAL COLUMN STIMULATOR? :NO DO YOU HAVE ANY RASHES OR OPEN SORES? :NO ARE YOU ALLERGIC TO IV DYE? :NO ARE YOU DIABETIC? :NO ANY NEW PROBLEMS WITH YOUR MEDICATIONS? :NO HAVE YOU RECEIVED A VACCINE IN THE PAST 30 DAYS? :YES IF SO WHAT VACCINE AND WHEN? 1ST COVID 09/21/2020 DO YOU PLAN TO RECEIVE A VACCINE IN THE NEXT 21 DAYS? :YES 2ND COVID SHOT 10/17/2020 DO YOU NEED ANY PRESCRIPTION? :YES GABAPENTIN DO YOU TAKE ANY IMMUNOSUPPRESSIVE MEDICATIONS? :NO DO YOU HAVE ANY KIDNEY OR LIVER DISEASE? :NO IS THERE A CHANCE YOU COULD BE ? :NO ARE YOU BREAST FEEDING? :NO CURRENT MEDICATIONS TAKING LISINOPRIL 10 MG TABLET 1 TABLET ORALLY ONCE A DAY TAKING TYLENOL 8 HOUR 650 MG TABLET EXTENDED RELEASE 2 TABLETS NEEDED ORALLY EVERY 8 HRS TAKING MULTI COMPLETE - CAPSULE 1 CAP ORALLY DAILY TAKING ATORVASTATIN CALCIUM 10 MG TABLET 1 TABLET ORALLY ONCE A DAY TAKING [id number] - CAPSULE 2 CAPS ORALLY DAILY TAKING GABAPENTIN 300 MG CAPSULE 1 CAPSULE ORALLY THREE TIMES A DAY FOR PAIN TAKING MAGNESIUM 400 MG CAPSULE 2 TABLETS WITH A MEAL ORALLY TAKING CLOBETASOL PROPIONATE 0.05 % CREAM 1 APPLICATION TO AFFECTED AREA EXTERNALLY TO PERINEUM TWICE WEEKLY TAKING RESTASIS MULTIDOSE EYEDROPS 1 DROP BOTH EYES TWICE A DAY TAKING NAPROXEN 220MG TABLET 2 TABLETS ORALLY AT BEDTIME NOT-TAKING TEMAZEPAM 15 MG CAPSULE 1 CAPSULE AT BEDTIME NEEDED ORALLY ONCE A DAY NOT-TAKING MAG-200 200 MG TABLET 2TAB ORALLY AT BEDTIME NOT-TAKING TRAMADOL HCL 50 MG TABLET 1 TABLET NEEDED ORALLY DAILY PRN PAIN MDD=1 REFILL 90 DAYS CATEGORY D CHRONIC PAIN NYS NOT-TAKING MAALOX 600 MG TABLET CHEWABLE ORALLY TWICE A DAY NEEDED NOT-TAKING PERCOCET 5-325 MG TABLET 1 TABLET NEEDED ORALLY EVERY 6 HRS PRN MDD4 NOT-TAKING BENADRYL ALLERGY 25 MG TABLET 2 TABLET NEEDED ORALLY EVERY 8 HRS NOT-TAKING IBUPROFEN 400 MG TABLET 1 TABLET ORALLY FOUR TIMES DAILY PRN PAIN TAKE WITH FOOD NOT-TAKING TIZANIDINE HCL 4 MG TABLET 1 TABLET NEEDED ORALLY BEFORE BEDTIME NOT-TAKING LIDODERM 5 % PATCH 1 PATCH TO SKIN REMOVE AFTER 12 HOURS EXTERNALLY ONCE A DAY PRN NOT-TAKING FISH OIL 1200 MG CAPSULE 1 CAPSULE ORALLY ONCE A DAY NOT-TAKING VITAMIN B COMPLEX-C - CAPSULE DIRECTED ORALLY MEDICATION LIST REVIEWED AND RECONCILED WITH THE PATIENT PAST MEDICAL HISTORY HTN SEASONAL ALLERGIES-YEAR ROUND BIGEMINY HEARING LOSS WITH GEOVANY HEARING AIDES/READS LIPS ARTHRITIS CARPAL TUNNEL LEFT WRIST BACK PAIN TYRER-CUZICK SCORE 24.4%, DENSE BREASTS, FAM HX OF BREAST CA ALLERGIES AUGMENTIN: DIARRHEA - SIDE EFFECTS SOCIAL HISTORY GENERAL: TOBACCO USE ARE YOU A:NONSMOKER LATEX QUESTIONNAIRE LATEX ALLERGY : HAVE YOU EVER DEVELOPED ANY TYPE OF REACTION AFTER HANDLING LATEX PRODUCTS SUCH RUBBER GLOVES, CONDOMS, DIAPHRAGMS, BALLOONS, SOCKS, OR UNDERWEAR?NO LATEX ALLERGY : HAVE YOU EVER DEVELOPED ANY TYPE OF REACTION DURING OR AFTER DENTAL APPOINTMENT, VAGINAL/RECTAL EXAMINATION, SURGICAL PROCEDURE, OR ANY OTHER EXPOSURE?NO LATEX RISK : HAVE YOU EVER HAD ANY DIFFICULTY BREATHING OR HIVES AFTER EATING OR HANDLING ANY FRUITS, OR VEGETABLES; SUCH KIWI, BANANAS, STONE FRUITS, OR CHESTNUTSNO LATEX RISK : DO YOU HAVE A PREVIOUS PERSONAL HISTORY OF MORE THAN NINE SURGERIES, SPINA BIFIDA, OR REPEATED CATHERIZATIONS? NO LATEX RISK : ARE YOU FREQUENTLY EXPOSED TO LATEX PRODUCTS IN YOUR OCCUPATION?NO DATE ASKED : 09/29/2020 ALCOHOL USE: NO. ALCOHOL SCREENING DID YOU HAVE A DRINK CONTAINING ALCOHOL IN THE PAST YEAR?YES HOW OFTEN DID YOU HAVE SIX OR MORE DRINKS ON ONE OCCASION IN THE PAST YEAR?NEVER (0 POINTS) HOW MANY DRINKS DID YOU HAVE ON A TYPICAL DAY WHEN YOU WERE DRINKING IN THE PAST YEAR?1 OR 2 (0 POINTS) HOW OFTEN DID YOU HAVE A DRINK CONTAINING ALCOHOL IN THE PAST YEAR?MONTHLY OR LESS (1 POINT) POINTS1 INTERPRETATIONNEGATIVE RECREATIONAL DRUG USE DENIES. CAFFEINE 1/DAY. SEXUAL HX HAD SEX IN THE LAST 12 MONTHS (VAGINAL, ORAL, OR ANAL)?NO LMP:2012 HAVE YOU EVER HAD AN STD?NO JAIN [id number] JUDAISM LANGUAGE LANGUAGES SPOKEN:SYRIAC EDUCATION LEVEL OF EDUCATION:PROFESSIONAL SCHOOLS/MASTERS/PHD LEARNING BARRIERS / SPECIAL NEEDS BARRIERS TO LEARNING?NO HEARING IMPAIRED?YES VISION IMPAIRED?YES COGNITIVELY IMPAIRED?NO :HEARING AIDES LEFT EAR.SLIGHT LOSS IN RIGHT :CORRECTIVE LENSES READINESS TO LEARN?YES LEARNING PREFERENCES?NO LEARNING CAPABILITIES PRESENT?YES EMOTIONAL BARRIERS?NO SPECIAL DEVICES?NO HEALTH ACTUARY NEEDED?NO DOMESTIC VIOLENCE DO YOU FEEL SAFE IN YOUR ENVIRONMENT?YES 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 DIET: NO HX EATING DISORDERS. EXERCISE: NO REGULAR EXERCISE DUE TO PAIN IN LEFT LEG. MARITAL STATUS: . OTHERS AT HOME: SPOUSE, 2 DOGS, 3 HORSES. - PFS REFERRAL NEEDED?NO CLERGY REFERRAL NEEDED?NO PUBLIC HEALTH REFERRAL NEEDED?NO HAS THE PATIENT BEEN EDUCATED REGARDING HIS/HER PLAN OF CARE?YES HAS THE PATIENT BEEN EDUCATED REGARDING PAIN, THE RISK FOR PAIN, THE IMPORTANCE OF EFFECTIVE PAIN MANAGEMENT, AND THE PAIN ASSESSMENT PROCESS?YES ADVANCE DIRECTIVE ADVANCE DIRECTIVE DISCUSSED WITH PATIENT:YES 08/26/2019 PT DOES NOT HAVE ANY ADVANCED DIRECTIVES AND SHE DECLINES INFORAMTION ON HCP AT THIS TIME AD REVIEW OF SYSTEMS CONSTITUTIONAL: ANY RECENT FEVER NO . CHILLS NO . WEIGHT CHANGE OF UNKNOWN REASONS NO . GASTROENTEROLOGY: NEW UNEXPLAINABLE CHANGES IN BOWEL CONTROL NO . CONSTIPATION NO . GENITOURINARY: ANY NEW CHANGE IN BLADDER CONTROL? NO . NEUROLOGY: NEW ONSET DIZZINESS OR NEUROLOGICAL CHANGES NOT MENTIONED NO . NEW NUMBNESS OR PAIN PATTERNS NOT MENTIONED AND PERTINENT TO TODAY'S VISIT NO . CARDIOLOGY: NEW CHEST PRESSURE NO . PATIENT DENIES NO . RESPIRATORY: UNEXPLAINABLE COUGH NO . NEW SHORTNESS OF BREATH NO . VITAL SIGNS WT 170.2 LBS, HT 65 IN, BMI 28.32 INDEX, BP 126/69 MM HG, HR 83 /MIN, RR 18 /MIN, TEMP 97.6 F, OXYGEN SAT % 95%, NA INITIALS SC 13:59. EXAMINATION GENERAL EXAMINATION: GENERALNO ACUTE DISTRESS, WELL NOURISHED AND HYDRATED. PSYCHAPPROPRIATE MOOD AND AFFECT . LUNGS:CLEAR TO AUSCULTATION BILATERALLY, NO WHEEZES, RHONCHI, RALES. HEART:NO MURMURS, REGULAR RATE AND RHYTHM. ASSESSMENTS INTERVERTEBRAL DISC DISORDERS WITH RADICULOPATHY, LUMBOSACRAL REGION - M51.17 (PRIMARY) TREATMENT INTERVERTEBRAL DISC DISORDERS WITH RADICULOPATHY, LUMBOSACRAL REGION REFILL GABAPENTIN CAPSULE, 300 MG, 1 CAPSULE, ORALLY, THREE TIMES A DAY FOR PAIN, 90 DAY(S), 270, REFILLS 2, NOTES: ____ NOTES: 65-YEAR-OLD FEMALE IN FOR CHRONIC PAIN FOLLOW-UP. GIVEN PRESENTING SYMPTOMS RECOMMENDED CONTINUATION OF CURRENT MEDICATION REGIMEN WITH FOLLOW-UP IN 4 MONTHS. PATIENT HAS EXPRESSED UNDERSTANDING OF AND WAS IN AGREEMENT WITH TREATMENT PLAN. GIVEN TIME TO ASK QUESTIONS AND EXPRESS CONCERNS. PROCEDURE CODES FA211 ESTABILISHED PATIENT [facility] CHARGE DISPOSITION & COMMUNICATION FOLLOW UP 4 MONTHS (REASON: BACK PAIN ) ELECTRONICALLY SIGNED BY BONY TELLEZ ON 10/02/2020 AT 12:39 PM EDT DISCLAIMER : THIS IS A VISIT SUMMARY EXTRACTED FROM THE [employer] CHART. IT IS NOT A COPY OF THE [employer] PROGRESS NOTE. MAGI
== END ==
LOC: M PAIN 14:00
PROVIDERS: ATTEND Family Medicine
DX: M51.17 Intervertebral disc disorders with radiculopathy, lumbosacral region (principal); I10 Essential (primary) hypertension; H91.93 Unspecified hearing loss, bilateral; Z97.4 Presence of external hearing-aid; Z79.1 Long term (current) use of non-steroidal anti-inflammatories (NSAID); Z79.899 Other long term (current) drug therapy; Z88.0 Allergy status to penicillin

== ENCOUNTER → 2020-10-09 | Outpatient (CLI) | payer BC ==
[2020-10-09 13:28] LABS: FREE T4 0.99 NG/DL (0.76-1.46); THYROID STIMULATING HORMONE 4.35 uIU/ML (0.358-3.740)
== END ==
LOC: M WUC 09:23
PROVIDERS: ATTEND Physician Assistant
DX: E03.9 Hypothyroidism, unspecified (principal)

== ENCOUNTER → 2021-01-03 | Outpatient (CLI) | payer BC ==
[2021-01-03 10:52] LABS: BASO # 0.1 10^3/uL (0.0-0.2); BASO % 0.9 % (0.0-1.0); EOS # 0.4 10^3/uL (0.0-0.5); EOS % 6.2 % (0.0-3.0); HEMATOCRIT 46.6 % (36.0-47.0); LYMPH # 1.9 10^3/uL (1.5-5.0); LYMPH % 33.8 % (24.0-44.0); MEAN CORPUSCULAR HEMOGLOBIN 29.3 pg (27.0-33.0); MEAN CORPUSCULAR HGB CONC 32.2 g/dl (32.0-36.5); MONO # 0.5 10^3/uL (0.0-0.8); MONO % 9.4 % (2.0-8.0); NEUTROPHILS # 2.8 10^3/uL (1.5-8.5); NEUTROPHILS % 49.5 % (36.0-66.0); PLATELET COUNT, AUTOMATED 258 10^3/uL (150-450); RED BLOOD COUNT 5.12 10^6/uL (4.00-5.40); WHITE BLOOD COUNT 5.7 10^3/uL (4.0-10.0)
[2021-01-03 11:26] LABS: ALT/SGPT 32 U/L (12-78); BILIRUBIN,TOTAL 0.5 MG/DL (0.2-1.0); BLOOD UREA NITROGEN 20 MG/DL (7-18); CALCIUM LEVEL 8.9 MG/DL (8.8-10.2); CARBON DIOXIDE LEVEL 32 MEQ/L (21-32); CHLORIDE LEVEL 105 MEQ/L (98-107); CHOLESTEROL LEVEL 204 MG/DL (<200); CHOLESTEROL RISK RATIO 1.906 (<5); CREATININE FOR GFR 0.73 MG/DL (0.55-1.30); FREE T4 1.05 NG/DL (0.76-1.46); GLOMERULAR FILTRATION RATE > 60.0 (>45); GLUCOSE, FASTING 95 MG/DL (70-100); HDL CHOLESTEROL 107 MG/DL (>40); LDL CHOLESTEROL 84 MG/DL (<100); NON-HDL-C 97 MG/DL; POTASSIUM SERUM 4.3 MEQ/L (3.5-5.1); SODIUM LEVEL 139 MEQ/L (136-145); TOTAL PROTEIN 6.8 GM/DL (6.4-8.2); TRIGLYCERIDES LEVEL 65 MG/DL (<150)
== END ==
LOC: M WUC 08:08
PROVIDERS: ATTEND Family Medicine
DX: E03.9 Hypothyroidism, unspecified (principal); E78.2 Mixed hyperlipidemia; I10 Essential (primary) hypertension

== ENCOUNTER → 2021-01-29 | Outpatient (CLI) | payer BC ==
--- NOTE | 2021-02-01 04:50 | ECWPNPC ---
PATIENT NAME: SHITAL HA : 1955 GENDER: FEMALE VISIT DATE: 01/29/2021 DISCHARGE DATE: 01/29/21 1410 VISIT LOCKED DATE TIME: PHYSICIAN: CAM QUINN RESOURCE: CAM QUINN REASON FOR APPOINTMENT 1. BACK PAIN HISTORY OF PRESENT ILLNESS GENERAL: HPI 65-YEAR-OLD FEMALE IN FOR CHRONIC PAIN FOLLOW-UP. SHE FEELS HER MEDICATIONS ARE HELPFUL AND DENIES MED SIDE EFFECTS AT THIS TIME.. -. FALL RISK SCREENING: SCREENING ONE FALLS REPORTED IN THE LAST YEAR WITHOUT INJURY. PATIENT STATES SHE "FELL OFF THE HORSE BECAUSE SHE GOT SPOOKED." PATIENT STATES SHE DID NOT SEEK MEDICAL TREATMENT.. PAIN SCREENING: PATIENT HAS A COMPLAINT OF ACUTE OR CHRONIC PAIN :NO NURSING NOTE: -. PAIN CENTER INTAKE QUESTIONS: DO YOU HAVE A HISTORY OF MRSA? :NO DO YOU TAKE A BLOOD THINNERS? :NO DO YOU HAVE ANY BLEEDING DISORDERS? :NO ANY NEW NUMBNESS OR WEAKNESS IN YOUR LEGS OR ARMS? :NO ANY PACEMAKER,DEFIBRILLATOR, OR DORSAL COLUMN STIMULATOR? :NO DO YOU HAVE ANY RASHES OR OPEN SORES? :NO ARE YOU ALLERGIC TO IV DYE? :NO ARE YOU DIABETIC? :NO ANY NEW PROBLEMS WITH YOUR MEDICATIONS? :NO HAVE YOU RECEIVED A VACCINE IN THE PAST 30 DAYS? :NO 2ND COVID SHOT 10/17/2020 DO YOU PLAN TO RECEIVE A VACCINE IN THE NEXT 21 DAYS? :NO DO YOU NEED ANY PRESCRIPTION? :YES GABAPENTIN DO YOU TAKE ANY IMMUNOSUPPRESSIVE MEDICATIONS? :NO DO YOU HAVE ANY KIDNEY OR LIVER DISEASE? :NO IS THERE A CHANCE YOU COULD BE ? :NO ARE YOU BREAST FEEDING? :NO CURRENT MEDICATIONS TAKING LISINOPRIL 10 MG TABLET 1 TABLET ORALLY ONCE A DAY TAKING TYLENOL 8 HOUR 650 MG TABLET EXTENDED RELEASE 2 TABLETS NEEDED ORALLY EVERY 8 HRS TAKING MULTI COMPLETE - CAPSULE 1 CAP ORALLY DAILY TAKING ATORVASTATIN CALCIUM 10 MG TABLET 1 TABLET ORALLY ONCE A DAY TAKING [id number] - CAPSULE 2 CAPS ORALLY DAILY TAKING MAGNESIUM 400 MG CAPSULE 2 TABLETS WITH A MEAL ORALLY TAKING CLOBETASOL PROPIONATE 0.05 % CREAM 1 APPLICATION TO AFFECTED AREA EXTERNALLY TO PERINEUM TWICE WEEKLY TAKING NAPROXEN 220MG TABLET 2 TABLETS ORALLY AT BEDTIME TAKING GABAPENTIN 300 MG CAPSULE 1 CAPSULE ORALLY THREE TIMES A DAY FOR PAIN NOT-TAKING RESTASIS MULTIDOSE EYEDROPS 1 DROP BOTH EYES TWICE A DAY NOT-TAKING TEMAZEPAM 15 MG CAPSULE 1 CAPSULE AT BEDTIME NEEDED ORALLY ONCE A DAY NOT-TAKING MAG-200 200 MG TABLET 2TAB ORALLY AT BEDTIME NOT-TAKING TRAMADOL HCL 50 MG TABLET 1 TABLET NEEDED ORALLY DAILY PRN PAIN MDD=1 REFILL 90 DAYS CATEGORY D CHRONIC PAIN NYS NOT-TAKING MAALOX 600 MG TABLET CHEWABLE ORALLY TWICE A DAY NEEDED NOT-TAKING PERCOCET 5-325 MG TABLET 1 TABLET NEEDED ORALLY EVERY 6 HRS PRN MDD4 NOT-TAKING BENADRYL ALLERGY 25 MG TABLET 2 TABLET NEEDED ORALLY EVERY 8 HRS NOT-TAKING IBUPROFEN 400 MG TABLET 1 TABLET ORALLY FOUR TIMES DAILY PRN PAIN TAKE WITH FOOD NOT-TAKING TIZANIDINE HCL 4 MG TABLET 1 TABLET NEEDED ORALLY BEFORE BEDTIME NOT-TAKING LIDODERM 5 % PATCH 1 PATCH TO SKIN REMOVE AFTER 12 HOURS EXTERNALLY ONCE A DAY PRN NOT-TAKING FISH OIL 1200 MG CAPSULE 1 CAPSULE ORALLY ONCE A DAY NOT-TAKING VITAMIN B COMPLEX-C - CAPSULE DIRECTED ORALLY MEDICATION LIST REVIEWED AND RECONCILED WITH THE PATIENT PAST MEDICAL HISTORY HTN SEASONAL ALLERGIES-YEAR ROUND BIGEMINY HEARING LOSS WITH GEOVANY HEARING AIDES/READS LIPS ARTHRITIS CARPAL TUNNEL LEFT WRIST BACK PAIN TYRER-CUZICK SCORE 24.4%, DENSE BREASTS, FAM HX OF BREAST CA ALLERGIES AUGMENTIN: DIARRHEA - SIDE EFFECTS FAMILY HISTORY FATHER: , SKIN CANCER AT AGE 76, DIAGNOSED WITH HYPERTENSION MOTHER: ALIVE, LEUKEMIA, HYPERTENSION, DIABETES SIBLINGS: ALIVE, BREAST CANCER PATERNAL GRAND MOTHER: COLON CANCER AT AGE 50 MATERNAL GRAND MOTHER: OVARIAN CANCER, DX AT AGE 75 PATERNAL UNCLE: PROSTATE CA AT AGE 74 MATERNAL AUNTS X 2 WITH BREAST CA, DX AT AGE 60 AND 65. ONE MATERNAL COUSIN DX AT AGE 40 WITIH BREAST CANCER. SISTER RECENTLY DX WITH AGGRESSIVE FORM OF BREAST CA AT AGE 56. FATHER FROM COMPLICATIONS OF HEART VALVE SURGERY. SOCIAL HISTORY GENERAL: TOBACCO USE ARE YOU A:NONSMOKER LATEX QUESTIONNAIRE LATEX ALLERGY : HAVE YOU EVER DEVELOPED ANY TYPE OF REACTION AFTER HANDLING LATEX PRODUCTS SUCH RUBBER GLOVES, CONDOMS, DIAPHRAGMS, BALLOONS, SOCKS, OR UNDERWEAR?NO LATEX ALLERGY : HAVE YOU EVER DEVELOPED ANY TYPE OF REACTION DURING OR AFTER DENTAL APPOINTMENT, VAGINAL/RECTAL EXAMINATION, SURGICAL PROCEDURE, OR ANY OTHER EXPOSURE?NO LATEX RISK : HAVE YOU EVER HAD ANY DIFFICULTY BREATHING OR HIVES AFTER EATING OR HANDLING ANY FRUITS, OR VEGETABLES; SUCH KIWI, BANANAS, STONE FRUITS, OR CHESTNUTSNO LATEX RISK : DO YOU HAVE A PREVIOUS PERSONAL HISTORY OF MORE THAN NINE SURGERIES, SPINA BIFIDA, OR REPEATED CATHERIZATIONS? NO LATEX RISK : ARE YOU FREQUENTLY EXPOSED TO LATEX PRODUCTS IN YOUR OCCUPATION?NO DATE ASKED : 01/29/2021 ALCOHOL USE: OCCASIONAL. ALCOHOL SCREENING DID YOU HAVE A DRINK CONTAINING ALCOHOL IN THE PAST YEAR?YES HOW OFTEN DID YOU HAVE SIX OR MORE DRINKS ON ONE OCCASION IN THE PAST YEAR?NEVER (0 POINTS) HOW MANY DRINKS DID YOU HAVE ON A TYPICAL DAY WHEN YOU WERE DRINKING IN THE PAST YEAR?1 OR 2 (0 POINTS) HOW OFTEN DID YOU HAVE A DRINK CONTAINING ALCOHOL IN THE PAST YEAR?MONTHLY OR LESS (1 POINT) POINTS1 INTERPRETATIONNEGATIVE RECREATIONAL DRUG USE DENIES. CAFFEINE 1/DAY. SEXUAL HX HAD SEX IN THE LAST 12 MONTHS (VAGINAL, ORAL, OR ANAL)?NO LMP:2011 HAVE YOU EVER HAD AN STD?NO VOODOO [id number] MORMON LANGUAGE LANGUAGES SPOKEN:ETHIOPIAN EDUCATION LEVEL OF EDUCATION:PROFESSIONAL SCHOOLS/MASTERS/PHD LEARNING BARRIERS / SPECIAL NEEDS CHANGE FROM LAST VISIT?NO BARRIERS TO LEARNING?NO HEARING IMPAIRED?YES :HEARING AIDES LEFT EAR.SLIGHT LOSS IN RIGHT VISION IMPAIRED?YES :CORRECTIVE LENSES COGNITIVELY IMPAIRED?NO READINESS TO LEARN?YES LEARNING PREFERENCES?NO LEARNING CAPABILITIES PRESENT?YES EMOTIONAL BARRIERS?NO SPECIAL DEVICES?NO EDUCATIONAL SIGN LANGUAGE INTERPRETER NEEDED?NO DOMESTIC VIOLENCE DO YOU FEEL SAFE IN YOUR ENVIRONMENT?YES OCCUPATION: PHARMACIST AT [employer]. DIET: NO HX EATING DISORDERS. EXERCISE: NO REGULAR EXERCISE DUE TO PAIN IN LEFT LEG. MARITAL STATUS: . OTHERS AT HOME: SPOUSE, 2 DOGS, 3 HORSES. - PFS REFERRAL NEEDED?NO CLERGY REFERRAL NEEDED?NO PUBLIC HEALTH REFERRAL NEEDED?NO HAS THE PATIENT BEEN EDUCATED REGARDING HIS/HER PLAN OF CARE?YES HAS THE PATIENT BEEN EDUCATED REGARDING PAIN, THE RISK FOR PAIN, THE IMPORTANCE OF EFFECTIVE PAIN MANAGEMENT, AND THE PAIN ASSESSMENT PROCESS?YES ADVANCE DIRECTIVE ADVANCE DIRECTIVE DISCUSSED WITH PATIENT:YES 08/26/2019 PT DOES NOT HAVE ANY ADVANCED DIRECTIVES AND SHE DECLINES INFORAMTION ON HCP AT THIS TIME AD REVIEW OF SYSTEMS CONSTITUTIONAL: ANY RECENT FEVER NO . CHILLS NO . WEIGHT CHANGE OF UNKNOWN REASONS NO . GASTROENTEROLOGY: NEW UNEXPLAINABLE CHANGES IN BOWEL CONTROL NO . CONSTIPATION NO . GENITOURINARY: ANY NEW CHANGE IN BLADDER CONTROL? NO . NEUROLOGY: NEW ONSET DIZZINESS OR NEUROLOGICAL CHANGES NOT MENTIONED NO . NEW NUMBNESS OR PAIN PATTERNS NOT MENTIONED AND PERTINENT TO TODAY'S VISIT NO . CARDIOLOGY: NEW CHEST PRESSURE NO . PATIENT DENIES NO . RESPIRATORY: UNEXPLAINABLE COUGH NO . NEW SHORTNESS OF BREATH NO . VITAL SIGNS WT 171.4 LBS, HT 65 IN, BMI 28.52 INDEX, BP 135/69 MM HG, HR 77 /MIN, RR 18 /MIN, TEMP 97.0 F, OXYGEN SAT % 98%, SAFE IN ENV? (Y/N) YES, NA INITIALS AW 1355, REVIEWED BY: DELBERT ANN MA. EXAMINATION GENERAL EXAMINATION: GENERALNO ACUTE DISTRESS, WELL NOURISHED AND HYDRATED. PSYCHAPPROPRIATE MOOD AND AFFECT . LUNGS:CLEAR TO AUSCULTATION BILATERALLY, NO WHEEZES, RHONCHI, RALES. HEART:NO MURMURS, REGULAR RATE AND RHYTHM. ASSESSMENTS INTERVERTEBRAL DISC DISORDERS WITH RADICULOPATHY, LUMBOSACRAL REGION - M51.17 TREATMENT INTERVERTEBRAL DISC DISORDERS WITH RADICULOPATHY, LUMBOSACRAL REGION REFILL GABAPENTIN CAPSULE, 300 MG, 1 CAPSULE, ORALLY, THREE TIMES A DAY FOR PAIN, 90 DAY(S), 270, REFILLS 2 OTHERS NOTES: 65-YEAR-OLD FEMALE IN FOR CHRONIC PAIN FOLLOW-UP. GIVEN PRESENTING SYMPTOMS RECOMMEND CONTINUATION OF CURRENT MEDICATION REGIMEN WITH FOLLOW-UP IN 4 MONTHS. DISCUSSED PATIENT'S INTERMITTENT INCREASED PAIN AND IT WAS DECIDED SHE WOULD CONTINUE TO MONITOR AT THIS TIME. PATIENT HAS EXPRESSED UNDERSTANDING OF AND WAS IN AGREEMENT WITH TREATMENT PLAN. GIVEN TIME TO ASK QUESTIONS AND EXPRESS CONCERNS. PROCEDURE CODES FA211 ESTABILISHED PATIENT [facility] CHARGE DISPOSITION & COMMUNICATION FOLLOW UP 4 MONTHS (REASON: CHRONIC PAIN) ELECTRONICALLY SIGNED BY BONY TELLEZ ON 01/31/2021 AT 08:11 AM EDT DISCLAIMER : THIS IS A VISIT SUMMARY EXTRACTED FROM THE [employer] CHART. IT IS NOT A COPY OF THE [employer] PROGRESS NOTE. MAGI
== END ==
LOC: M PAIN 14:00
PROVIDERS: ATTEND Family Medicine
DX: M51.17 Intervertebral disc disorders with radiculopathy, lumbosacral region (principal); I10 Essential (primary) hypertension; J30.2 Other seasonal allergic rhinitis; H91.93 Unspecified hearing loss, bilateral; R00.8 Other abnormalities of heart beat; Z79.899 Other long term (current) drug therapy; Z88.0 Allergy status to penicillin

== ENCOUNTER → 2021-06-04 | Outpatient (CLI) | payer BC ==
--- NOTE | 2021-06-04 11:30 | REPMRS ---
Patient History The patient states she has not had a clinical breast exam in over a year. Family history of ovarian cancer at age 75 in maternal grandmother, breast cancer at age 60 in maternal aunt, breast cancer at age 56 in sister, breast cancer at age 65 in maternal aunt, colorectal cancer at age 50 in paternal grandmother, prostate cancer at age 74 in paternal uncle, breast cancer at age 40 in maternal cousin. No Hormone Replacement Therapy Tomosynthesis is performed. Volpara breast density is b. Patient states no breast complaints today. Patient has signed MRS History Sheet. Digital Woman Screen Mammo: June 04, 2021 - Exam #: [id number] Bilateral CC and MLO view(s) were taken. Technologist: Kiley Grijalva, Director Emergency Services Prior study comparison: February 01, 2020, bilateral digital woman screen mammo performed at [facility]. October 07, 2018, bilateral digital woman screen mammo performed at [facility]. FINDINGS: There are scattered fibroglandular densities. There has been no change in the appearance of the mammogram from the prior studies. There is a mild amount of residual fibroglandular tissue which is fairly symmetric. There is no interval development of dominant mass, architectural distortion, or clustered microcalcification suggestive of malignancy. Assessment: BI-RADS/ACR category 1 mammogram. Negative Mammogram. Recommendation Routine screening mammogram in 1 year (for women over age 40). This mammogram was interpreted with the aid of an FDA-approved computer-aided dectection system. The Lifetime Breast Cancer Risk is estimated at 22.7%. Yearly supplemental screening MRI of the breasts is recommended for patients with an elevated lifetime risk of breast cancer of 20% or greater, in addition to annual screening mammography, staggered every 6 months. Electronically Signed By: Raymundo Scott MD 06/04/21 1123
== END ==
LOC: M WHC 09:41
PROVIDERS: ATTEND Nurse Practitioner Women's Health
DX: Z12.31 Encounter for screening mammogram for malignant neoplasm of breast (principal)

== ENCOUNTER → 2021-06-29 | Outpatient (CLI) | payer BC ==
[2021-06-29 12:45] LABS: BASO % 0.7 % (0.0-1.0); EOS # 0.4 10^3/uL (0.0-0.5); EOS % 6.6 % (0.0-3.0); HEMATOCRIT 47.1 % (36.0-47.0); HEMOGLOBIN 15.3 g/dl (12.0-15.5); LYMPH # 1.8 10^3/uL (1.5-5.0); MEAN CORPUSCULAR HEMOGLOBIN 29.4 pg (27.0-33.0); MEAN CORPUSCULAR HGB CONC 32.5 g/dl (32.0-36.5); MEAN CORPUSCULAR VOLUME 90.6 fl (80.0-96.0); MONO # 0.6 10^3/uL (0.0-0.8); MONO % 9.6 % (2.0-8.0); NEUTROPHILS # 2.9 10^3/uL (1.5-8.5); NEUTROPHILS % 50.6 % (36.0-66.0); PLATELET COUNT, AUTOMATED 295 10^3/uL (150-450); WHITE BLOOD COUNT 5.8 10^3/uL (4.0-10.0)
[2021-06-29 13:23] LABS: ALT/SGPT 40 U/L (12-78); BILIRUBIN,TOTAL 0.5 MG/DL (0.2-1.0); BLOOD UREA NITROGEN 20 MG/DL (7-18); CALCIUM LEVEL 9.8 MG/DL (8.8-10.2); CARBON DIOXIDE LEVEL 33 MEQ/L (21-32); CHLORIDE LEVEL 106 MEQ/L (98-107); CHOLESTEROL LEVEL 215 MG/DL (<200); CHOLESTEROL RISK RATIO 2.171 (<5); CREATININE FOR GFR 0.82 MG/DL (0.55-1.30); FREE T4 1.04 NG/DL (0.76-1.46); GLOMERULAR FILTRATION RATE > 60.0 (>45); GLUCOSE, FASTING 100 MG/DL (70-100); HDL CHOLESTEROL 99 MG/DL (>40); LDL CHOLESTEROL 96 MG/DL (<100); NON-HDL-C 116 MG/DL; POTASSIUM SERUM 4.5 MEQ/L (3.5-5.1); SODIUM LEVEL 143 MEQ/L (136-145); TOTAL PROTEIN 7.2 GM/DL (6.4-8.2); TRIGLYCERIDES LEVEL 102 MG/DL (<150)
== END ==
LOC: M WUC 09:24
PROVIDERS: ATTEND Physician Assistant
DX: E03.9 Hypothyroidism, unspecified (principal); I10 Essential (primary) hypertension; Z13.0 Encounter for screening for diseases of the blood and blood-forming organs and certain disorders involving the immune mechanism

== ENCOUNTER → 2021-07-05 | Outpatient (CLI) | payer BC | LOC: M PAIN 13:45 | PROVIDERS: ATTEND Anesthesiology | DX: M51.17 Intervertebral disc disorders with radiculopathy, lumbosacral region (principal); I10 Essential (primary) hypertension; J30.2 Other seasonal allergic rhinitis; H91.93 Unspecified hearing loss, bilateral; Z79.1 Long term (current) use of non-steroidal anti-inflammatories (NSAID); Z79.899 Other long term (current) drug therapy; Z88.0 Allergy status to penicillin ==

== ENCOUNTER → 2021-07-26 | Outpatient (CLI) | payer OTHER | LOC: M RAD 12:07 | PROVIDERS: ATTEND Nurse Practitioner Adult Health | DX: D44.0 Neoplasm of uncertain behavior of thyroid gland (principal) ==

== ENCOUNTER → 2021-08-20 | Outpatient (REF) | payer OTHER | LOC: M LAB REF 16:01 | PROVIDERS: ATTEND Internal Medicine Endocrinology, Diabetes & Metabolism | DX: E04.2 Nontoxic multinodular goiter (principal) ==

== ENCOUNTER → 2022-01-08 | Outpatient (CLI) | payer OTHER ==
[~2022-01-08] MED LIST changes: +ULTR1TAB PO; -ULTR37.54 PO
[2022-01-08 16:11] LABS: BASO % 0.6 % (0.0-1.0); EOS # 0.4 10^3/uL (0.0-0.5); EOS % 6.5 % (0.0-3.0); HEMATOCRIT 46.3 % (36.0-47.0); HEMOGLOBIN 14.9 g/dl (12.0-15.5); LYMPH # 1.7 10^3/uL (1.5-5.0); LYMPH % 27.4 % (24.0-44.0); MEAN CORPUSCULAR HEMOGLOBIN 30.2 pg (27.0-33.0); MEAN CORPUSCULAR HGB CONC 32.2 g/dl (32.0-36.5); MEAN CORPUSCULAR VOLUME 93.7 fl (80.0-96.0); MONO # 0.6 10^3/uL (0.0-0.8); MONO % 9.6 % (2.0-8.0); NEUTROPHILS # 3.4 10^3/uL (1.5-8.5); NEUTROPHILS % 55.7 % (36.0-66.0); PLATELET COUNT, AUTOMATED 248 10^3/uL (150-450); RED BLOOD COUNT 4.94 10^6/uL (4.00-5.40); WHITE BLOOD COUNT 6.2 10^3/uL (4.0-10.0)
[2022-01-08 16:22] LABS: ALBUMIN 3.9 GM/DL (3.2-5.2); ALT/SGPT 28 U/L (12-78); BILIRUBIN,TOTAL 0.5 MG/DL (0.2-1.0); BLOOD UREA NITROGEN 13 MG/DL (7-18); CALCIUM LEVEL 9.9 MG/DL (8.8-10.2); CARBON DIOXIDE LEVEL 32 MEQ/L (21-32); CHLORIDE LEVEL 105 MEQ/L (98-107); CHOLESTEROL LEVEL 206 MG/DL (<200); CHOLESTEROL RISK RATIO 2.239 (<5); CREATININE FOR GFR 0.79 MG/DL (0.55-1.30); GLOMERULAR FILTRATION RATE > 60.0 (>45); GLUCOSE, FASTING 95 MG/DL (70-100); HDL CHOLESTEROL 92 MG/DL (>40); LDL CHOLESTEROL 95 MG/DL (<100); NON-HDL-C 114 MG/DL; POTASSIUM SERUM 4.1 MEQ/L (3.5-5.1); SODIUM LEVEL 142 MEQ/L (136-145); TOTAL PROTEIN 7.1 GM/DL (6.4-8.2); TRIGLYCERIDES LEVEL 96 MG/DL (<150)
== END ==
LOC: M WUC 11:13
PROVIDERS: ATTEND Nurse Practitioner Adult Health
DX: I10 Essential (primary) hypertension (principal); E03.9 Hypothyroidism, unspecified; E78.2 Mixed hyperlipidemia

== ENCOUNTER → 2022-05-17 | Outpatient (CLI) | payer OTHER ==
[2022-05-17 12:05] LABS: BASO % 0.5 % (0.0-1.0); EOS # 0.4 10^3/uL (0.0-0.5); EOS % 5.8 % (0.0-3.0); HEMATOCRIT 45.9 % (36.0-47.0); HEMOGLOBIN 15.1 g/dl (12.0-15.5); LYMPH # 1.6 10^3/uL (1.5-5.0); LYMPH % 22.4 % (24.0-44.0); MEAN CORPUSCULAR HEMOGLOBIN 29.8 pg (27.0-33.0); MEAN CORPUSCULAR HGB CONC 32.9 g/dl (32.0-36.5); MEAN CORPUSCULAR VOLUME 90.7 fl (80.0-96.0); MONO # 0.6 10^3/uL (0.0-0.8); MONO % 8.5 % (2.0-8.0); NEUTROPHILS # 4.5 10^3/uL (1.5-8.5); NEUTROPHILS % 62.4 % (36.0-66.0); PLATELET COUNT, AUTOMATED 266 10^3/uL (150-450); RED BLOOD COUNT 5.06 10^6/uL (4.00-5.40); WHITE BLOOD COUNT 7.3 10^3/uL (4.0-10.0)
[2022-05-17 13:13] LABS: ALBUMIN 3.9 GM/DL (3.2-5.2); ALT/SGPT 37 U/L (12-78); BILIRUBIN,TOTAL 0.5 MG/DL (0.2-1.0); BLOOD UREA NITROGEN 13 MG/DL (7-18); CALCIUM LEVEL 9.4 MG/DL (8.8-10.2); CARBON DIOXIDE LEVEL 33 MEQ/L (21-32); CHLORIDE LEVEL 105 MEQ/L (98-107); CHOLESTEROL LEVEL 210 MG/DL (<200); CHOLESTEROL RISK RATIO 2.038 (<5); CREATININE FOR GFR 0.76 MG/DL (0.55-1.30); FREE T4 1.04 NG/DL (0.76-1.46); GLOMERULAR FILTRATION RATE > 60.0 (>45); GLUCOSE, FASTING 97 MG/DL (70-100); HDL CHOLESTEROL 103 MG/DL (>40); LDL CHOLESTEROL 87 MG/DL (<100); NON-HDL-C 107 MG/DL; POTASSIUM SERUM 4.3 MEQ/L (3.5-5.1); SODIUM LEVEL 141 MEQ/L (136-145); TRIGLYCERIDES LEVEL 102 MG/DL (<150)
== END ==
LOC: M WUC 09:18
PROVIDERS: ATTEND Family Medicine
DX: E03.9 Hypothyroidism, unspecified (principal); I10 Essential (primary) hypertension; E78.2 Mixed hyperlipidemia

== ENCOUNTER → 2022-06-11 | Outpatient (CLI) | payer OTHER | LOC: M WHC 10:19 | PROVIDERS: ATTEND Nurse Practitioner Adult Health | DX: Z12.31 Encounter for screening mammogram for malignant neoplasm of breast (principal) ==

== ENCOUNTER → 2022-11-21 | Outpatient (CLI) | payer OTHER ==
[2022-11-21 11:01] LABS: BASO # 0.1 10^3/uL (0.0-0.2); BASO % 0.4 % (0.0-1.0); EOS # 0.6 10^3/uL (0.0-0.5); EOS % 4.7 % (0.0-3.0); HEMATOCRIT 45.8 % (36.0-47.0); HEMOGLOBIN 15.1 g/dl (12.0-15.5); LYMPH # 1.6 10^3/uL (1.5-5.0); MEAN CORPUSCULAR HEMOGLOBIN 29.7 pg (27.0-33.0); MEAN CORPUSCULAR VOLUME 90.2 fl (80.0-96.0); NEUTROPHILS % 73.7 % (36.0-66.0); PLATELET COUNT, AUTOMATED 281 10^3/uL (150-450); RED BLOOD COUNT 5.08 10^6/uL (4.00-5.40); WHITE BLOOD COUNT 12.2 10^3/uL (4.0-10.0)
[2022-11-21 11:26] LABS: ALBUMIN 3.6 G/DL (3.2-5.2); ALKALINE PHOSPHATASE 73 U/L (46-116); ALT/SGPT 24 U/L (7.0-40); AST/SGOT 17 U/L (<34); BILIRUBIN,TOTAL 0.5 MG/DL (0.3-1.2); BLOOD UREA NITROGEN 20 MG/DL (9-23); CALCIUM LEVEL 8.9 MG/DL (8.3-10.6); CARBON DIOXIDE LEVEL 30 MMOL/L (20-31); CHLORIDE LEVEL 107 MMOL/L (98-107); CHOLESTEROL LEVEL 183 MG/DL (<200); CHOLESTEROL RISK RATIO 2.15 (<5); CREATININE FOR GFR 0.74 MG/DL (0.55-1.30); GLOMERULAR FILTRATION RATE > 60.0 (>45); GLUCOSE, FASTING 89 MG/DL (74-106); LDL CHOLESTEROL 81.8 MG/DL (<100); POTASSIUM SERUM 4.3 MMOL/L (3.5-5.1); SODIUM LEVEL 143 MMOL/L (136-145); THYROID STIMULATING HORMONE 2.367 uIU/ML (0.55-4.78); TOTAL PROTEIN 6.4 G/DL (5.7-8.2); TRIGLYCERIDES LEVEL 81 MG/DL (<150)
[2022-11-21 11:28] LABS: FREE T4 1.08 NG/DL (0.89-1.76)
== END ==
LOC: M WUC 08:32
PROVIDERS: ATTEND Nurse Practitioner Adult Health
DX: E03.9 Hypothyroidism, unspecified (principal); I10 Essential (primary) hypertension; E78.2 Mixed hyperlipidemia

== ENCOUNTER → 2022-11-26 | Outpatient (REF) | payer OTHER | LOC: M LAB REF 17:19 | PROVIDERS: ATTEND Nurse Practitioner Adult Health | DX: N39.3 Stress incontinence (female) (male) (principal) ==

== ENCOUNTER → 2023-01-03 | Outpatient (CLI) | payer OTHER | LOC: M WHC 10:25 | PROVIDERS: ATTEND Nurse Practitioner Adult Health | DX: E04.1 Nontoxic single thyroid nodule (principal) ==

== ENCOUNTER → 2023-06-02 | Outpatient (CLI) | payer OTHER ==
[2023-06-02 12:02] LABS: BASO % 0.6 % (0.0-1.0); EOS # 0.4 10^3/uL (0.0-0.5); EOS % 5.7 % (0.0-3.0); HEMATOCRIT 46.8 % (36.0-47.0); HEMOGLOBIN 15.4 g/dl (12.0-15.5); LYMPH % 29.2 % (24.0-44.0); MEAN CORPUSCULAR HEMOGLOBIN 29.9 pg (27.0-33.0); MEAN CORPUSCULAR HGB CONC 32.9 g/dl (32.0-36.5); MEAN CORPUSCULAR VOLUME 90.9 fl (80.0-96.0); MONO # 0.6 10^3/uL (0.0-0.8); MONO % 8.6 % (2.0-8.0); NEUTROPHILS # 3.8 10^3/uL (1.5-8.5); NEUTROPHILS % 55.8 % (36.0-66.0); PLATELET COUNT, AUTOMATED 295 10^3/uL (150-450); RED BLOOD COUNT 5.15 10^6/uL (4.00-5.40); WHITE BLOOD COUNT 6.7 10^3/uL (4.0-10.0)
[2023-06-02 12:33] LABS: ALBUMIN 3.8 G/DL (3.2-5.2); ALKALINE PHOSPHATASE 77 U/L (46-116); ALT/SGPT 27 U/L (7.0-40); AST/SGOT 19 U/L (<34); BILIRUBIN,TOTAL 0.5 MG/DL (0.3-1.2); BLOOD UREA NITROGEN 16 MG/DL (9-23); CALCIUM LEVEL 9.2 MG/DL (8.3-10.6); CARBON DIOXIDE LEVEL 30 MMOL/L (20-31); CHLORIDE LEVEL 105 MMOL/L (98-107); CHOLESTEROL LEVEL 212 MG/DL (<200); CHOLESTEROL RISK RATIO 2.63 (<5); CREATININE FOR GFR 0.72 MG/DL (0.55-1.30); GLOMERULAR FILTRATION RATE > 60.0 (>45); GLUCOSE, FASTING 92 MG/DL (74-106); HDL CHOLESTEROL 80.4 MG/DL (>40); LDL CHOLESTEROL 111.4 MG/DL (<100); NON-HDL-C 131.6 MG/DL; POTASSIUM SERUM 4.4 MMOL/L (3.5-5.1); SODIUM LEVEL 141 MMOL/L (136-145); TOTAL PROTEIN 6.8 G/DL (5.7-8.2); TRIGLYCERIDES LEVEL 101 MG/DL (<150)
[2023-06-02 12:34] LABS: FREE T4 1.03 NG/DL (0.89-1.76); THYROID STIMULATING HORMONE 2.929 uIU/ML (0.55-4.78)
== END ==
LOC: M WUC 08:20
PROVIDERS: ATTEND Nurse Practitioner Adult Health
DX: E78.2 Mixed hyperlipidemia (principal); E03.9 Hypothyroidism, unspecified

== ENCOUNTER → 2023-10-17 | Outpatient (CLI) | payer MEDICARE | LOC: M RAD 13:02 | PROVIDERS: ATTEND Nurse Practitioner Adult Health | DX: R06.02 Shortness of breath (principal) ==

== ENCOUNTER → 2024-03-30 | Outpatient (CLI) | payer MEDICARE | LOC: M WHC 15:31 | PROVIDERS: ATTEND Nurse Practitioner Adult Health | DX: Z12.31 Encounter for screening mammogram for malignant neoplasm of breast (principal) ==

== ENCOUNTER → 2024-05-31 | Outpatient (CLI) | payer MEDICARE ==
[2024-05-31 14:37] LABS: BASO % 0.6 % (0.0-1.0); EOS # 0.6 10^3/uL (0.0-0.5); EOS % 8.6 % (0.0-3.0); HEMATOCRIT 46.2 % (36.0-47.0); HEMOGLOBIN 15.2 g/dl (12.0-15.5); LYMPH # 1.5 10^3/uL (1.5-5.0); LYMPH % 23.7 % (24.0-44.0); MEAN CORPUSCULAR HEMOGLOBIN 30.4 pg (27.0-33.0); MEAN CORPUSCULAR HGB CONC 32.9 g/dl (32.0-36.5); MEAN CORPUSCULAR VOLUME 92.4 fl (80.0-96.0); MONO # 0.6 10^3/uL (0.0-0.8); MONO % 9.7 % (2.0-8.0); NEUTROPHILS # 3.7 10^3/uL (1.5-8.5); NEUTROPHILS % 57.2 % (36.0-66.0); PLATELET COUNT, AUTOMATED 286 10^3/uL (150-450); WHITE BLOOD COUNT 6.4 10^3/uL (4.0-10.0)
[2024-05-31 15:05] LABS: ALBUMIN 3.8 G/DL (3.2-5.2); ALKALINE PHOSPHATASE 79 U/L (35-104); ALT/SGPT 27 U/L (7.0-40); AST/SGOT 18 U/L (<34); BILIRUBIN,TOTAL 0.6 MG/DL (0.3-1.2); BLOOD UREA NITROGEN 21 MG/DL (9-23); CALCIUM LEVEL 9.8 MG/DL (8.3-10.6); CARBON DIOXIDE LEVEL 30 MMOL/L (20-31); CHLORIDE LEVEL 107 MMOL/L (98-107); CHOLESTEROL LEVEL 220 MG/DL (<200); CHOLESTEROL RISK RATIO 2.72 (<5); CREATININE FOR GFR 0.72 MG/DL (0.55-1.30); GLOMERULAR FILTRATION RATE > 60.0 (>45); GLUCOSE, FASTING 103 MG/DL (74-106); HDL CHOLESTEROL 80.6 MG/DL (>40); LDL CHOLESTEROL 120.8 MG/DL (<100); NON-HDL-C 139.4 MG/DL; POTASSIUM SERUM 4.1 MMOL/L (3.5-5.1); SODIUM LEVEL 141 MMOL/L (136-145); TOTAL PROTEIN 7.2 G/DL (5.7-8.2); TRIGLYCERIDES LEVEL 93 MG/DL (<150)
[2024-05-31 15:07] LABS: FREE T4 1.19 NG/DL (0.89-1.76); THYROID STIMULATING HORMONE 2.765 uIU/ML (0.55-4.78)
== END ==
LOC: M WUC 09:21
PROVIDERS: ATTEND Nurse Practitioner Adult Health
DX: I10 Essential (primary) hypertension (principal); E03.9 Hypothyroidism, unspecified; E78.2 Mixed hyperlipidemia

== ENCOUNTER 2025-07-04 09:39 | Day surgery (SDC) | payer MEDICARE ==
[~2025-07-04] VITALS: Ht 162.6 cm; Wt 89.4 kg
[~2025-07-04 09:39] MED LIST changes: +ARTIDRO4 OD; +ATOR1TAB19 PO; +CYCLOPENTOLATE 1% OPHTH SOLN 2 ML BTL OD SCH; +FLURBIPROFEN 0.03% OPHTH SOLN 2.5 ML OD SCH; +GABA-1172 PO; +HYDR12.510 PO; -HYDR12CA PO; +LEVO50TA5 PO; +LISI10TA22 PO; +LR 1,000 ML IV SCH; +MIDAZOLAM INJ 2 MG/2 ML VIAL As Ordered ONE; +PHENYLEPHRINE 2.5% OPHTH SOL 2ML OD SCH; +TETRACAINE 0.5% OPHTH SOLN 4ML OD SCH; +XALA0.007; +ZADI1DRO OP
[2025-07-04] MEDS: LIDOCAINE 1% SDV 5 ML VIAL As Ordered ONE (12:34)
[2025-07-04] MEDS: CEFUROXIME 1 MG/0.1 ML INTRACAMERAL INJ As Ordered ONE (12:35)
[2025-07-04 12:50] VITALS: BP 115/63; TEMP 97.9; O2SAT 96
== END 2025-07-04 13:11 | disposition home or self-care (01) ==
LOC: M SDC 09:39
PROVIDERS: ATTEND Ophthalmology
DX: H25.11 Age-related nuclear cataract, right eye (principal); I10 Essential (primary) hypertension; E03.9 Hypothyroidism, unspecified; E78.00 Pure hypercholesterolemia, unspecified; G62.9 Polyneuropathy, unspecified; R32 Unspecified urinary incontinence; Z79.899 Other long term (current) drug therapy; Z79.890 Hormone replacement therapy; Z88.8 Allergy status to other drugs, medicaments and biological substances; Z88.1 Allergy status to other antibiotic agents
CPT/HCPCS: 66984; J0697; J2250; J3010; V2632

== ENCOUNTER 2025-07-11 07:28 | Day surgery (SDC) | payer MEDICARE ==
[~2025-07-11] VITALS: Ht 162.6 cm; Wt 89.8 kg
[~2025-07-11 07:28] MED LIST changes: -CYCLOPENTOLATE 1% OPHTH SOLN 2 ML BTL OD SCH; -FLURBIPROFEN 0.03% OPHTH SOLN 2.5 ML OD SCH; -MIDAZOLAM INJ 2 MG/2 ML VIAL As Ordered ONE; -PHENYLEPHRINE 2.5% OPHTH SOL 2ML OD SCH; -TETRACAINE 0.5% OPHTH SOLN 4ML OD SCH
[2025-07-11] MEDS: TETRACAINE 0.5% OPHTH SOLN 4ML OS SCH (08:47)
[2025-07-11] MEDS: FLURBIPROFEN 0.03% OPHTH SOLN 2.5 ML OS SCH (08:47)
[2025-07-11] MEDS: PHENYLEPHRINE 2.5% OPHTH SOL 2ML OS SCH (08:47)
[2025-07-11] MEDS: CYCLOPENTOLATE 1% OPHTH SOLN 2 ML BTL OS SCH (08:47)
[2025-07-11] MEDS ORDERED: MIDAZOLAM INJ 2 MG/2 ML VIAL As Ordered ONE (09:24)
[2025-07-11] MEDS: CEFUROXIME 1 MG/0.1 ML INTRACAMERAL INJ As Ordered ONE (10:25)
[2025-07-11] MEDS: LIDOCAINE 1% SDV 5 ML VIAL As Ordered ONE (10:25)
[2025-07-11 10:41] VITALS: BP 110/64; TEMP 96.9; O2SAT 96
== END 2025-07-11 10:59 | disposition home or self-care (01) ==
LOC: M SDC 07:28
PROVIDERS: ATTEND Ophthalmology
DX: H25.12 Age-related nuclear cataract, left eye (principal); I10 Essential (primary) hypertension; E03.9 Hypothyroidism, unspecified; E78.2 Mixed hyperlipidemia; E04.1 Nontoxic single thyroid nodule; N39.3 Stress incontinence (female) (male); Z79.899 Other long term (current) drug therapy; G62.9 Polyneuropathy, unspecified; Z79.890 Hormone replacement therapy; Z88.1 Allergy status to other antibiotic agents; Z88.8 Allergy status to other drugs, medicaments and biological substances; Z98.41 Cataract extraction status, right eye; F32.0 Major depressive disorder, single episode, mild
CPT/HCPCS: 66984; J0697; J2250; J3010; V2632